=== PATIENT | female | born 1970 | race Caucasian/White ===

== ENCOUNTER → 2020-03-31 14:07 | Outpatient (BNVA) | payer MEDICAID, SELFPAY | PROVIDERS: Visit Provider Surgery | DX: E66.9 Obesity, unspecified (principal); Z68.38 Body mass index [BMI] 38.0-38.9, adult; F17.210 Nicotine dependence, cigarettes, uncomplicated; Z71.6 Tobacco abuse counseling | CPT/HCPCS: 99214 ==

== ENCOUNTER → 2020-04-23 13:15 | Outpatient (BNVA) | payer MEDICAID, SELFPAY | PROVIDERS: PCP Internal Medicine; Referring Provider Internal Medicine; Visit Provider Surgery | DX: E66.9 Obesity, unspecified (principal); Z68.38 Body mass index [BMI] 38.0-38.9, adult | CPT/HCPCS: 99212 ==

== ENCOUNTER 2020-05-18 11:36 | Outpatient (REF) | payer MEDICAID, SELFPAY ==
[2020-05-22 21:27] LABS: Cotinine, U <2 ng/mL; Nicotine, U <2 ng/mL
== END 2020-05-18 11:37 | disposition home or self-care (01) ==
LOC: HO.LAB 11:36
PROVIDERS: PCP Internal Medicine; Visit Provider Surgery
DX: Z87.891 Personal history of nicotine dependence (principal)
CPT/HCPCS: 80323

== ENCOUNTER → 2020-07-02 08:06 | Outpatient (BNVA) | payer MEDICAID, SELFPAY | PROVIDERS: PCP Internal Medicine; Visit Provider Surgery | DX: Z76.89 Persons encountering health services in other specified circumstances (principal) ==

== ENCOUNTER → 2020-10-23 09:25 | Outpatient (BNVA) | payer OTHER, SELFPAY | PROVIDERS: PCP Internal Medicine; Visit Provider Physician Assistant ==

== ENCOUNTER 2021-03-05 20:54 | Emergency (ER) | payer OTHER, SELFPAY ==
[2021-03-05 21:06] VITALS: BP 116/72; PULSE 88; RESP 16; TEMP 36.6; O2SAT 94; BMI 39.4
[2021-03-05 21:10] VITALS: BP 104/70; PULSE 90; O2SAT 96
--- NOTE | 2021-03-05 23:27 | ED.ALCOHOL ---
HPI - Alcohol General Chief Complaint: ETOH/Substance Use Stated Complaint: etoh Time Seen by Provider: 03/05/21 23:27 Source: patient Mode of arrival: EMS History of Present Illness HPI narrative: 50-year-old female arrives via EMS after she was found on the floor, and incontinent of urine. Patient states that she got home from work and began drinking which included vodka and [place] is a and states that she does not regularly drink alcohol, and denies any suicidal homicidal ideation. Patient denies any injury and was noted by EMS to be nauseous EN route. However, patient currently is not nauseous and states that she feels embarrassed but wishes to go home. She has a neighbor that is at bedside. Related Data Home Medications Medication Instructions Recorded Confirmed ascorbate calcium (vitamin C) 500 500 mg PO DAILY 03/31/20 03/31/20 mg tablet bupropion HCl 150 mg tablet,12 hr 150 mg PO DAILY 03/31/20 03/31/20 sustained-release (Wellbutrin SR) bupropion HCl 300 mg 24 hr tablet, 300 mg PO QAM 03/31/20 03/31/20 extended release (Wellbutrin XL) cholecalciferol (vitamin D3) 100 100 mcg PO DAILY 03/31/20 03/31/20 mcg (4,000 unit) capsule clonazepam 1 mg tablet (Klonopin) 3 mg PO BEDTIME tab 03/31/20 03/31/20 lansoprazole 30 mg capsule,delayed 30 mg PO DAILY 03/31/20 03/31/20 release (Prevacid) lorazepam 1 mg tablet (Ativan) 3 mg PO BEDTIME PRN tab 03/31/20 03/31/20 vitamin B complex 1 tab PO DAILY 03/31/20 03/31/20 Allergies Allergy/AdvReac Type Severity Reaction Status Date / Time No Known Allergies Allergy Unverified 03/12/20 18:20 NKA Allergy Unknown Uncoded 03/03/20 00:00 Review of Systems Review of Systems: Pertinent positives and negatives as stated in HPI 10 point review of systems is otherwise negative. PMFSH Past Medical History Source: nursing notes reviewed Medical History Acid reflux Anxiety Colon polyps Coronary artery disease Depression Hyperlipidemia Obesity Obesity Osteoarthritis of right knee Sleep apnea Urinary incontinence Surgical History H/O elbow surgery History of arthroscopic surgery of elbow History of breast augmentation History of colonoscopy History of removal of retained hardware History of right knee surgery Hx of reconstruction of anterior cruciate ligament tear Presence of neurostimulator Family History Family History Father Medical history unknown Mother Oropharyngeal cancer Brother No problems noted. Son No problems noted. Social History Social History Alcohol intake: current Advance Directives: No Advance Directives Information Provided: Yes Patient : No Physical Exam Vital Signs: Vital Signs: Last Vital Signs Temp 98 F 03/05/21 21:06 Pulse 88 03/05/21 21:06 Resp 16 03/05/21 21:06 BP 116/72 03/05/21 21:06 Pulse Ox 94 03/05/21 21:06 Body Mass Index 39.4 VITAL SIGNS: Reviewed. GENERAL: Well developed, well nourished, in no acute distress. HEAD: Normocephalic/atraumatic EYES: PERRLA, EOMI OROPHARYNX: no oral lesions noted, posterior pharynx clear LUNGS: Normal breath sounds. No adventitious sounds or accessory muscle use. SpO2<94> CARDIOVASCULAR: Regular rate and rhythm without noted murmurs ABDOMEN: Soft, non-tender, non-distended with bowel sounds. SKIN: Inspection of the skin reveals no rashes NEUROLOGIC: Alert and oriented x 4. Strength and sensation to light touch were grossly intact x 4. Patient is able to at this time walk with a steady gait and no noted slurred speech. Course Course Course Narrative: 50-year-old female with history and clinical presentation consistent with alcohol intoxication and now has a steady gait and is communicating well with staff and neighbor, who is at bedside. It was explained extensively to the patient is alert fever that she will be discharged as long as there is someone who will stay with her overnight. There is agreement and patient will be discharged home in stable condition. Discharge Plan Discharge Clinical Impression: Alcoholic intoxication Patient Disposition: Home, Self-Care Instructions: Alcohol Intoxication (ED) Additional Instructions: Please exercise caution with alcohol consumption. Return to the ER for acute worsening of any symptoms and follow-up with your primary care provider. Prescriptions: No Action bupropion HCl [Wellbutrin SR] 150 mg tablet sustained-release 12 hr 150 mg PO DAILY RF: 0 bupropion HCl [Wellbutrin XL] 300 mg tablet extended release 24 hr 300 mg PO QAM RF: 0 clonazepam [Klonopin] 1 mg tablet 3 mg PO BEDTIME RF: 0 lorazepam [Ativan] 1 mg tablet 3 mg PO BEDTIME PRNRF: 0 vitamin B complex Tablet 1 tab PO DAILY RF: 0 cholecalciferol (vitamin D3) 100 mcg (4,000 unit) capsule 100 mcg PO DAILY RF: 0 ascorbate calcium (vitamin C) 500 mg tablet 500 mg PO DAILY RF: 0 lansoprazole [Prevacid] 30 mg capsule,delayed release(DR/EC) 30 mg PO DAILY RF: 0 Referrals: Physician,Unknown [Primary Care Provider] - 2 days
== END 2021-03-06 00:17 | disposition home or self-care (01) ==
PROVIDERS: Emergency Provider Student in an Organized Health Care Education/Training Program
DX: F10.129 Alcohol abuse with intoxication, unspecified (principal); R32 Unspecified urinary incontinence; Y90.9 Presence of alcohol in blood, level not specified; Z79.899 Other long term (current) drug therapy
CPT/HCPCS: 99283

== ENCOUNTER 2022-01-14 17:38 | Emergency (ER) | payer OTHER, SELFPAY ==
--- NOTE | ~2022-01-14 | XR_ITS ---
EXAMINATION: XR KNEE, RIGHT CLINICAL INFORMATION: Knee pain COMPARISON: None TECHNIQUE: Four views of the right knee. FINDINGS: Orthopedic hardware is present in the anterolateral lateral femoral condyle along with in the distal femur and tibia. Mild degenerative changes are present in all 3 compartments. No joint effusion or fracture is seen. XR/XR knee RT 3V IMPRESSION: Postoperative changes right knee along with mild tricompartmental degenerative changes. No acute finding.
--- NOTE | ~2022-01-14 | US_ITS ---
EXAMINATION: US VENOUS ULTRASOUND WITH DOPPLER LOWER EXTREMITY, RIGHT CLINICAL INFORMATION: Right lower extremity pain and swelling COMPARISON: None TECHNIQUE: Ultrasound of the deep veins is performed from the hip to the calf with compression sonography and color and pulse Doppler assessment. Spectral analysis with color-flow imaging is performed. FINDINGS: There is normal venous compression and respiratory variation and augmented flow. The visualized common femoral vein, superficial femoral vein, profunda femoral vein, popliteal vein, and the trifurcation region shows no evidence of deep venous thrombosis. There is no significant popliteal fossa cyst. If the patient's symptoms persist, followup ultrasound in 5 days 7 days might be of value to exclude proximal propagation from a non-visualized calf vein. US/US venous duplex LE RT IMPRESSION: No DVT demonstrated in the right lower extremity.
[2022-01-14 17:46] VITALS: BP 124/75; PULSE 90; RESP 18; TEMP 37.2; O2SAT 98; BMI 41.9
[2022-01-14 18:40] LABS: MANUAL DIFF FLAG NO
[2022-01-14 18:43] LABS: Basophils Percent Auto 0.4 % (0-2); Eosinophils Absolute Auto 0.3 X10*3/uL (0.0-0.4); Eosinophils Percent Auto 2.9 % (0-4); Hemoglobin 12.5 g/dl (12.0-16.0); Imm Gran Abs Auto 0.02 X10*3/uL (0.00-0.03); Imm Gran Pct Auto 0.2 % (0.0-0.4); Lymphocytes Absolute Auto 2.6 X10*3/uL (1.2-4.9); Lymphocytes Percent Auto 27.8 % (20-40); Mean Corpuscular HGB Conc 32.9 g/dl (31.0-35.0); Mean Corpuscular Hemoglobin 29.8 pg (27.0-33.0); Mean Corpuscular Volume 90.7 fL (80.0-98.0); Mean Platelet Volume 9.7 fL (9.4-12.3); Monocytes Absolute Auto 0.9 X10*3/uL (0.1-1.2); Monocytes Percent Auto 9.6 % (2-11); Neutrophils Absolute Auto 5.4 x10*3/uL (2.0-8.3); Neutrophils Percent Auto 59.1 % (45-73); Platelet Count 247 X10*3/uL (160-400); Red Blood Count 4.19 X10*6/uL (4.20-5.50); Red Cell Distribution Width 13.9 % (11.0-16.0); White Blood Count 9.2 X10*3/uL (4.8-10.8)
[2022-01-14 18:59] LABS: Alanine Aminotransferase 30 U/L (0-31); Alkaline Phosphatase 71 U/L (39-117); Anion Gap 11 (12-20); Aspartate Amino Transferase 19 U/L (5-31); Bilirubin Total 0.2 mg/dL (0.0-1.0); Blood Urea Nitrogen 19 mg/dL (9-16); Calcium 8.7 mg/dL (8.4-10.2); Carbon Dioxide 25 mmol/L (22-29); Chloride 106 mmol/L (96-108); Creatinine Clr Calc Pharmacy 81.3; Estimated Glomerular Filt Rate 54; Glucose Random 93 mg/dL (60-115); Potassium 4.5 mmol/L (3.3-5.1); Sodium 137 mmol/L (135-145); Total Protein 6.9 g/dL (6.5-8.0)
--- NOTE | 2022-01-14 20:49 | ED.EXTPRO ---
HPI - Extremity Problem General Chief complaint: Extremity Problem Stated complaint: possible Knee infection per Dr order Time Seen by Provider: 01/14/22 19:00 History of Present Illness HPI Narrative: Patient complains of right knee pain for several days, she does have a history of several surgeries to this knee in the past for sports injuries, denies any fever denies any recent injury Related Data Home Medications Medication Instructions Recorded Confirmed ascorbate calcium (vitamin C) 500 500 mg PO DAILY 03/31/20 03/31/20 mg tablet bupropion HCl 150 mg tablet,12 hr 150 mg PO DAILY 03/31/20 03/31/20 sustained-release (Wellbutrin SR) bupropion HCl 300 mg 24 hr tablet, 300 mg PO QAM 03/31/20 03/31/20 extended release (Wellbutrin XL) cholecalciferol (vitamin D3) 100 100 mcg PO DAILY 03/31/20 03/31/20 mcg (4,000 unit) capsule clonazepam 1 mg tablet (Klonopin) 3 mg PO BEDTIME 03/31/20 03/31/20 lansoprazole 30 mg capsule,delayed 30 mg PO DAILY 03/31/20 03/31/20 release (Prevacid) lorazepam 1 mg tablet (Ativan) 3 mg PO BEDTIME PRN 03/31/20 03/31/20 vitamin B complex 1 tab PO DAILY 03/31/20 03/31/20 Previous Rx's Medication Instructions Recorded oxycodone 5 mg tablet 5 mg PO Q6H PRN pain #10 tabs 01/14/22 Allergies Allergy/AdvReac Type Severity Reaction Status Date / Time No Known Allergies Allergy Unverified 03/12/20 18:20 NKA Allergy Unknown Uncoded 03/03/20 00:00 Review of Systems Review of Systems: Positive for right knee pain and swelling Negatives are no fever no chills no dizziness no headache no neck pain no back pain no chest pain no shortness of breath denies redness, no numbness weakness or tingling Yes all other systems are reviewed and are negative PMFSH Past Medical History Source: nursing notes reviewed Medical History Acid reflux Anxiety Colon polyps Coronary artery disease Depression Hyperlipidemia Obesity Obesity Osteoarthritis of right knee Sleep apnea Urinary incontinence Surgical History H/O elbow surgery History of arthroscopic surgery of elbow History of breast augmentation History of colonoscopy History of removal of retained hardware History of right knee surgery Hx of reconstruction of anterior cruciate ligament tear Presence of neurostimulator Family History Family History Father Medical history unknown Mother Oropharyngeal cancer Brother No problems noted. Son No problems noted. Social History Social History Alcohol intake: current Physical Exam Vital Signs: Vital Signs: Last Vital Signs Temp 98.9 F 01/14/22 17:46 Pulse 90 01/14/22 17:46 Resp 18 01/14/22 17:46 BP 124/75 01/14/22 17:46 Pulse Ox 98 01/14/22 17:46 O2 Del Method 01/14/22 17:46 BMI result Body Mass Index 41.9 General appearance no acute distress Head is normocephalic atraumatic Neck is supple Respiratory no distress Chest clear to auscultation bilateral The extremities the right knee is normal color, there is swelling of the knee, it does extend to 180 and flex to around 90 there is no obvious effusion it is not red and warm, no wounds no rash and neurovascular intact distal Other extremities normal Course Course Course Narrative: Ultrasound did not show any blood clot or DVT in the right lower leg, no acute abnormality Right knee x-ray showed postoperative changes and degenerative changes consistent with osteoarthritis Patient is discharged to follow with orthopedist MDM - Extremity (Nontraumatic) Lab Data Result diagrams: 01/14/22 18:27 01/14/22 18:27 Labs: Lab Results 01/14/22 01/14/22 Range/Units 18:27 18:27 WBC 9.2 (4.8-10.8) X10*3/uL RBC 4.19 L (4.20-5.50) X10*6/uL Hgb 12.5 (12.0-16.0) g/dl Hct 38.0 (37.0-47.0) % MCV 90.7 (80.0-98.0) fL MCH 29.8 (27.0-33.0) pg MCHC 32.9 (31.0-35.0) g/dl RDW 13.9 (11.0-16.0) % Plt Count 247 (160-400) X10*3/uL MPV 9.7 (9.4-12.3) fL Immature Gran % (Auto) 0.2 (0.0-0.4) % Neut % (Auto) 59.1 (45-73) % Lymph % (Auto) 27.8 (20-40) % [place] % (Auto) 9.6 (2-11) % Eos % (Auto) 2.9 (0-4) % Baso % (Auto) 0.4 (0-2) % Lymph # (Auto) 2.6 (1.2-4.9) X10*3/uL [place] # (Auto) 0.9 (0.1-1.2) X10*3/uL Eos # (Auto) 0.3 (0.0-0.4) X10*3/uL Baso # (Auto) 0.0 (0.0-0.2) X10*3/uL Abs Immat Gran (auto) 0.02 (0.00-0.03) X10*3/uL Absolute Neuts (auto) 5.4 (2.0-8.3) x10*3/uL Absolute Nucleated RBC 0.000 (0.0-0.012) X10*3/uL Nucleated RBC % (auto) 0.0 (0.0-0.2) /100WBC Sodium 137 (135-145) mmol/L Potassium 4.5 (3.3-5.1) mmol/L Chloride 106 (96-108) mmol/L Carbon Dioxide 25 (22-29) mmol/L Anion Gap 11 L (12-20) BUN 19 H (9-16) mg/dL Creatinine 1.08 (0.5-1.4) mg/dL Estim Creat Clear Calc 81.3 Estimated GFR 54 Random Glucose 93 (60-115) mg/dL Calcium 8.7 (8.4-10.2) mg/dL Total Bilirubin 0.2 (0.0-1.0) mg/dL AST 19 (5-31) U/L ALT 30 (0-31) U/L Alkaline Phosphatase 71 (39-117) U/L Total Protein 6.9 (6.5-8.0) g/dL Albumin 4.0 (3.5-5.0) g/dL Discharge Plan Discharge Clinical Impression: Arthralgia of knee, right Patient Disposition: Home, Self-Care Additional Instructions: X-ray did show arthritis and postsurgical changes in your right knee Ultrasound did not show any blood clot There is no sign of any infection or any dangerous condition now, although it is painful Follow with orthopedist as they may decide to do a steroid injection or other treatment Return any time if worse You can use Naprosyn and Tylenol which you have at home and if not sufficient you could use the oxycodone narcotic Prescriptions: New oxycodone 5 mg tablet 5 mg PO Q6H PRN (Reason: pain) Qty: 10 0RF Rx Instructions: Partial Fill upon patient request. Narcotic, no driving for 6 hours after taking this medication No Action bupropion HCl [Wellbutrin SR] 150 mg tablet sustained-release 12 hr 150 mg PO DAILY bupropion HCl [Wellbutrin XL] 300 mg tablet extended release 24 hr 300 mg PO QAM clonazepam [Klonopin] 1 mg tablet 3 mg PO BEDTIME Rx Instructions: administer 30 minutes before bedtime lorazepam [Ativan] 1 mg tablet 3 mg PO BEDTIME PRN vitamin B complex Tablet 1 tab PO DAILY cholecalciferol (vitamin D3) 100 mcg (4,000 unit) capsule 100 mcg PO DAILY ascorbate calcium (vitamin C) 500 mg tablet 500 mg PO DAILY lansoprazole [Prevacid] 30 mg capsule,delayed release(DR/EC) 30 mg PO DAILY Referrals: Matthew Freitas MD [Physician] - (Right knee pain/arthritis) Interventions: ED Discharge Assessment Last Done: 01/14/22 22:37 Discharge Date/Time: 01/14/22 22:38
== END 2022-01-14 22:38 | disposition home or self-care (01) ==
PROVIDERS: Emergency Provider Internal Medicine; PCP Internal Medicine
DX: M17.11 Unilateral primary osteoarthritis, right knee (principal); M25.561 Pain in right knee; E78.5 Hyperlipidemia, unspecified; E66.9 Obesity, unspecified; Z68.41 Body mass index [BMI] 40.0-44.9, adult
CPT/HCPCS: 36415; 73562; 80053; 85025; 93971; 99282; 99284

== ENCOUNTER 2022-02-17 08:39 | Outpatient (REF) | payer OTHER, SELFPAY ==
--- NOTE | ~2022-02-17 | XR_ITS ---
EXAMINATION: XR KNEES, STANDING AP XR KNEE, RIGHT CLINICAL INFORMATION: Knee pain COMPARISON: Radiographs right knee 01/14/2022. TECHNIQUE: Standing AP view both knees is performed along with lateral and axial patella views of the right knee. FINDINGS: Right: There are postsurgical changes with probable tibial tunnel and hardware overlying the distal lateral femoral metaphysis. Hardware is intact. There is no destructive process or osteolysis. No periostitis. Normal bony mineralization. There is prominent narrowing medial knee joint compartment with small marginal osteophytes. No erosive change or visible chondrocalcinosis. No suprapatellar effusion. Mild degenerative changes patellofemoral joint. No lateralization or tilting patella. Left: No focal joint narrowing or erosive change or chondrocalcinosis. No destructive process. XR/XR knee RT 2V IMPRESSION: Right: -Postsurgical changes. No destructive process or osteolysis. -Prominent narrowing medial knee joint compartment. No erosive change or chondrocalcinosis. No effusion. Left: -Unremarkable.
--- NOTE | ~2022-02-17 | XR_ITS ---
EXAMINATION: XR KNEES, STANDING AP XR KNEE, RIGHT CLINICAL INFORMATION: Knee pain COMPARISON: Radiographs right knee 01/14/2022. TECHNIQUE: Standing AP view both knees is performed along with lateral and axial patella views of the right knee. FINDINGS: Right: There are postsurgical changes with probable tibial tunnel and hardware overlying the distal lateral femoral metaphysis. Hardware is intact. There is no destructive process or osteolysis. No periostitis. Normal bony mineralization. There is prominent narrowing medial knee joint compartment with small marginal osteophytes. No erosive change or visible chondrocalcinosis. No suprapatellar effusion. Mild degenerative changes patellofemoral joint. No lateralization or tilting patella. Left: No focal joint narrowing or erosive change or chondrocalcinosis. No destructive process. XR/XR knee standing BI IMPRESSION: Right: -Postsurgical changes. No destructive process or osteolysis. -Prominent narrowing medial knee joint compartment. No erosive change or chondrocalcinosis. No effusion. Left: -Unremarkable.
== END 2022-02-17 08:40 | disposition home or self-care (01) ==
LOC: HO.HOSX 08:39
PROVIDERS: Visit Provider Orthopaedic Surgery
DX: M25.561 Pain in right knee (principal)
CPT/HCPCS: 73560; 73565

== ENCOUNTER 2023-03-16 08:30 | Outpatient (AMB) | payer OTHER, SELFPAY ==
--- NOTE | 2023-03-16 08:33 | A.OFFVIS_ITS ---
Intake Intake Visit Reasons: New Prob - Right Elbow Pain Intake Note: Swathi is a 52 year old right hand dominant female who presents today for a new problem visit with complaints of right elbow pain. Hx of surgery on elbow in about 2003. Patient reports that she has had pain in the right elbow with lifting and grasping motions. Denies numbness and tingling. Allergies No Known Allergies Allergy (Verified 02/17/22 10:03) NKA Allergy (Unknown, Uncoded 02/17/22 09:58) Unknown HPI New Prob - Right Elbow Pain HPI Details Swathi is a 52 year old woman who presents with complaints of right elbow pain, with a hx of elbow surgery in ~2003. She has pain primarily with lifting and grasping activities, localized to the lateral aspect of her elbow. She also has known right knee OA with a hx of multiple surgeries all performed in [facility]: 2X ACL repair (2001 & 2004), 1 Meniscus repair, and rem oval of Ortho hardware. She has tried multiple injections at [facility], without relief, and has not done any PT. She was last seen and given a medial unloading brace to wear with activity and she was focused on increasing her activity and weight management. [facility] Medical History Obesity Obesity Colon polyps Urinary incontinence Coronary artery disease Hyperlipidemia Osteoarthritis of right knee Sleep apnea Acid reflux Anxiety Depression Surgical History (Updated 03/16/23 @ 08:35 by Adrianna Victor CMA) H/O gastric sleeve H/O elbow surgery History of colonoscopy Presence of neurostimulator History of breast augmentation History of arthroscopic surgery of elbow History of removal of retained hardware History of right knee surgery Hx of reconstruction of anterior cruciate ligament tear Family History Father Medical history unknown Mother Oropharyngeal cancer Brother No problems noted. Son No problems noted. 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 - [employer] Review of Systems Const All systems reviewed & are unremarkable except as noted in HPI and below Physical Exam Const General: no acute distress, alert and awake Orientation/consciousness: patient oriented x3 HEENT Head: Yes normocephalic and Yes atraumatic Eyes EOM: EOMs intact bilaterally Resp Effort & Inspection: normal respiratory effort and able to speak in complete sentences Cardio Jugular venous distension: no JVD Skin General skin exam: turgor normal Rashes: no rashes Neuro General: patient oriented x3 Extrem Other: Right Elbow: Tenderness to palpation over the lateral epicondyle. Mild pain with resisted extension of the wrist. Full range of motion. Psych Appearance: grossly normal Affect: normal affect Attitude: cooperative Assessment & Plan Assessment & Plan (1) Right lateral epicondylitis: Code(s): M77.11 - Lateral epicondylitis, right elbow Plan: Right lateral epicondylitis. Discussed treatment options. At this point I recommend counterforce brace and activity modification. She will contact me if pain worsens. Coding Level of Care Code Est Pt Level 3 (42149) Diagnoses Right lateral epicondylitis M77.11
== END 2023-03-16 08:51 | disposition home or self-care (01) ==
PROVIDERS: PCP Internal Medicine; Visit Provider Orthopaedic Surgery
DX: M77.11 Lateral epicondylitis, right elbow (principal)
CPT/HCPCS: 99213

== ENCOUNTER → 2023-03-16 08:30 | Outpatient (BNVA) | payer OTHER, SELFPAY | PROVIDERS: PCP Internal Medicine; Visit Provider Orthopaedic Surgery ==

== ENCOUNTER 2023-07-20 22:02 | Emergency (ER) | payer OTHER, SELFPAY ==
--- NOTE | 2023-07-20 | ECG_ITS ---
Test Reason : OVERDOSE Blood Pressure : / mmHG Vent. Rate : 089 BPM Atrial Rate : 089 BPM P-R Int : 140 ms QRS Dur : 092 ms QT Int : 384 ms P-R-T Axes : 051 049 014 degrees QTc Int : 467 ms Normal sinus rhythm Normal ECG When compared with ECG of 25-FEB-2020 12:13, No significant change was found Referred By: Thalia Love Electronically Signed By:Jose Ojeda
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
[2023-07-20 22:19] VITALS: BP 109/67; PULSE 88; RESP 18; TEMP 36.5; O2SAT 94; BMI 33.4
[2023-07-20 22:47] LABS: MANUAL DIFF FLAG NO
[2023-07-20 22:48] LABS: Basophils Absolute Auto 0.1 X10*3/uL (0.0-0.2); Basophils Percent Auto 0.8 % (0-2); Eosinophils Absolute Auto 0.3 X10*3/uL (0.0-0.4); Eosinophils Percent Auto 4.3 % (0-4); Hematocrit 37.5 % (37.0-47.0); Hemoglobin 13.2 g/dl (12.0-16.0); Imm Gran Abs Auto 0.01 X10*3/uL (0.00-0.03); Imm Gran Pct Auto 0.1 % (0.0-0.4); Lymphocytes Absolute Auto 3.7 X10*3/uL (1.2-4.9); Lymphocytes Percent Auto 50.7 % (20-40); Mean Corpuscular HGB Conc 35.2 g/dl (31.0-35.0); Mean Corpuscular Hemoglobin 31.9 pg (27.0-33.0); Mean Corpuscular Volume 90.6 fL (80.0-98.0); Mean Platelet Volume 9.2 fL (9.4-12.3); Monocytes Absolute Auto 0.6 X10*3/uL (0.1-1.2); Monocytes Percent Auto 7.9 % (2-11); Neutrophils Absolute Auto 2.7 x10*3/uL (2.0-8.3); Neutrophils Percent Auto 36.2 % (45-73); Platelet Count 225 X10*3/uL (160-400); Red Blood Count 4.14 X10*6/uL (4.20-5.50); Red Cell Distribution Width 12.4 % (11.0-16.0); White Blood Count 7.4 X10*3/uL (4.8-10.8)
[2023-07-20 22:52] LABS: INTERNATIONAL NORM RATIO 0.9 (0.9-1.1); Prothrombin Time 11.3 SEC (11.1-13.3)
[2023-07-20 22:58] LABS: Ethanol 275 mg/dL
[2023-07-20 23:01] LABS: Alanine Aminotransferase 19 U/L (0-31); Albumin Level 3.9 g/dL (3.5-5.0); Alkaline Phosphatase 67 U/L (39-117); Anion Gap 13 (12-20); Aspartate Amino Transferase 18 U/L (5-31); Bilirubin Direct 0.1 mg/dL (0.0-0.5); Bilirubin Total 0.3 mg/dL (0.0-1.0); Blood Urea Nitrogen 10 mg/dL (9-16); Calcium 8.5 mg/dL (8.4-10.2); Carbon Dioxide 24 mmol/L (22-29); Chloride 101 mmol/L (96-108); Creatinine Clr Calc Pharmacy 93.6; Estimated Glomerular Filt Rate > 60; Glucose Random 93 mg/dL (60-115); Magnesium 1.9 mg/dL (1.6-2.6); Potassium 3.6 mmol/L (3.3-5.1); Sodium 134 mmol/L (135-145)
[2023-07-20 23:08] LABS: Troponin-I High Sensitivity < 2.7 ng/L (<3.5-17.0)
[2023-07-20 23:10] LABS: Appearance Urine Clear; Color Urine Yellow; Glucose Urine UA Negative (Negative); Leukocyte Esterase Urine Negative (Negative); Nitrite Urine Negative (Negative); Specific Gravity - Urine <= 1.005 (1.005-1.025); Urine Blood Negative (Negative); Urine Ketones Negative (Negative); Urine Protein Negative (Neg-Trace)
[2023-07-20 23:22] LABS: Fentanyl, urine Not Detected (Not Detect)
[2023-07-20 23:23] LABS: Amphetamine Screen Urine Not Detected (Not Detect); Barbiturates, Urine Not Detected (Not Detect); Benzodiazepines Screen Urine Not Detected (Not Detect); Cannabinoid Screen Urine POSITIVE (Not Detect); Cocaine Screen Urine Not Detected (Not Detect); Opiate Screen Urine Not Detected (Not Detect); Phencyclidine Screen Urine Not Detected (Not Detect)
--- NOTE | 2023-07-20 23:25 | PC.NURSE ---
Called Poison Control who recommends Tylenol, salicylate level and supportive care until she is more awake. Dr. Love made aware.
[2023-07-21 00:33] LABS: Acetaminophen LAB < 3 mcg/mL (<30); Salicylate < 5.0 mg/dL (15-30)
--- NOTE | 2023-07-21 01:24 | PC.NURSE ---
Update given to Poison control at this time. No further recommendations.
--- NOTE | 2023-07-21 02:42 | PC.NURSE ---
Pt resting quietly at this time. Respirations even and unlabored. 1:[address]
[2023-07-21 04:00] VITALS: PULSE 75; RESP 16; O2SAT 94
--- NOTE | 2023-07-21 07:20 | PC.NURSE ---
Addendum entered by Aminah Ritchie 07/21/23 07:22: patient belongings in decon, phone with community health advisor Original Note: alert and oriented, respirations even and unlabored. patient awake, questioning how she got here. states she remembers having a bad day at work, going home and drinking/taking prescription pills. denies si/hi, states she has never done anything like this. patient observer remains in place, awaiting care team consult.
--- NOTE | 2023-07-21 09:20 | PC.NURSE ---
meeting with care team
[2023-07-21 09:26] VITALS: BP 97/70; PULSE 82; RESP 14; TEMP 36.6; O2SAT 100
== END 2023-07-21 09:43 | disposition home or self-care (01) ==
PROVIDERS: Emergency Provider Emergency Medicine
DX: F33.1 Major depressive disorder, recurrent, moderate (principal); T42.4X1A Poisoning by benzodiazepines, accidental (unintentional), initial encounter; Y92.9 Unspecified place or not applicable; F10.129 Alcohol abuse with intoxication, unspecified; Y90.7 Blood alcohol level of 200-239 mg/100 ml; Z79.899 Other long term (current) drug therapy
CPT/HCPCS: 36415; 80048; 80076; 80143; 80179; 80307; 81003; 83735; 84484; 85025; 85610; 93005; 99285; S9485

== ENCOUNTER → 2023-07-20 22:31 | Outpatient (BNV) | payer OTHER, SELFPAY | PROVIDERS: Emergency Provider Emergency Medicine; Visit Provider Internal Medicine Cardiovascular Disease | DX: T50.911A Poisoning by multiple unspecified drugs, medicaments and biological substances, accidental (unintentional), initial encounter (principal) | CPT/HCPCS: 93010 ==

== ENCOUNTER 2023-09-06 15:10 | Emergency (ER) | payer OTHER, SELFPAY ==
--- NOTE | ~2023-09-06 | CT_ITS ---
EXAMINATION: CT head/brain wo IV con CLINICAL INFORMATION: Reason for Exam dizziness COMPARISON: None. TECHNIQUE: Contiguous axial imaging was performed from the skull base to vertex without intravenous contrast. Sagittal and coronal reformatted images were obtained. This CT examination was performed using dose optimization techniques as appropriate, variously including the following: * Automated exposure control * Adjustment of mA and/or kV according to patient size (this includes techniques or standardized protocols for targeted exams where dose is matched to indication/reason for exam; i.e. extremities or head) Use of iterative reconstruction technique DLP: 637 mGy-cm FINDINGS: No acute osseous or soft tissue abnormality. The mastoid air cells and visualized portions of the paranasal sinuses are well aerated. There is no evidence of acute intracranial hemorrhage or territorial infarction. No abnormal mass effect or midline shift is seen. Nagy to white matter differentiation is well preserved. No extra-axial fluid collections are identified. No hydrocephalus. No significant volume loss. There is no abnormal attenuation within the brain parenchyma. CT/CT head/brain wo IV con IMPRESSION: No acute intracranial abnormality including hemorrhage, mass effect, hydrocephalus, or acute territorial edematous infarction.
[2023-09-06 15:35] VITALS: BP 156/85; PULSE 73; RESP 18; TEMP 36.9; O2SAT 99; BMI 32.4
--- NOTE | 2023-09-06 15:48 | ED.GENADULT ---
HPI - General Adult General Chief complaint: General Medical Stated complaint: referred from telehealth possible stroke? Time Seen by Provider: 09/06/23 21:12 Source: patient Mode of arrival: ambulatory Limitations: no limitations History of Present Illness HPI narrative: Patient 52 years old with history of depression chronic insomnia on Ativan 6 mg daily and Wellbutrin getting only 3-4 hours sleep and night increased stress last 2 days patient noticed that while reading on the computer not able to grasp feel foggy in her mind no aortic collection defect no comprehension defect no focal weakness patient was triaged at 15:[address] scan done at that time which is negative no weakness no headache no dysarthria Related Data Home Medications Medication Instructions Recorded Confirmed bupropion HCl 150 mg tablet,12 hr 150 mg PO DAILY 03/31/20 03/31/20 sustained-release (Wellbutrin SR) bupropion HCl 300 mg 24 hr tablet, 300 mg PO QAM 03/31/20 03/31/20 extended release (Wellbutrin XL) lansoprazole 30 mg capsule,delayed 30 mg PO DAILY 03/31/20 03/31/20 release (Prevacid) lorazepam 1 mg tablet (Ativan) 3 mg PO BEDTIME PRN 03/31/20 03/31/20 vitamin B complex 1 tab PO DAILY 03/31/20 03/31/20 hydroxyzine HCl 50 mg tablet 50 mg PO BID 02/17/22 tizanidine 4 mg tablet 4 mg PO TID 02/17/22 Previous Rx's Medication Instructions Recorded trazodone 50 mg tablet 50 mg PO BEDTIME PRN insomnia #10 09/06/23 tabs Allergies Allergy/AdvReac Type Severity Reaction Status Date / Time No Known Allergies Allergy Verified 07/20/23 22:18 NKA Allergy Unknown Unknown Uncoded 07/20/23 22:18 Review of Systems Review of Systems: Yes all other systems are reviewed and are negative PMFSH Past Medical History Medical History Obesity Obesity Colon polyps Urinary incontinence Coronary artery disease Hyperlipidemia Osteoarthritis of right knee Sleep apnea Acid reflux Anxiety Depression Surgical History H/O gastric sleeve H/O elbow surgery History of colonoscopy Presence of neurostimulator History of breast augmentation History of arthroscopic surgery of elbow History of removal of retained hardware History of right knee surgery Hx of reconstruction of anterior cruciate ligament tear Family History Family History Father Medical history unknown Mother Oropharyngeal cancer Brother No problems noted. Son No problems noted. Social History Social History Alcohol intake: current Advance Directives: Yes Advance Directives Information Provided: No Advance Directives on File: No Current occupational status: employed Current occupation: [employer] Physical Exam ED Vital Signs: Vital Signs - 24 hr 09/06/23 15:35 09/06/23 19:54 Temperature 98.5 F 97.6 F Pulse Rate 73 73 Respiratory Rate 18 18 Blood Pressure 156/85 H 114/80 Pulse Oximetry 99 99 Oxygen Delivery Method Room Air Room Air BMI result Body Mass Index 32.4 Appearance: Alert. Oriented X3. No acute distress. Eyes: PERRLA, No Nystagmus ENT: Pharynx normal. Oral Mucosa moist Neck: Normal inspection. Neck supple. CVS: Normal heart rate and rhythm. Pulses normal. Respiratory: No respiratory distress. Equal air entry bilateral, no wheezing/rales/rhonchi Abdomen: Soft and nontender. Bowel sounds are present, no mass palpable, no CVA tenderness Skin: Skin warm and dry. Normal skin color. Normal skin turgor. Extremities: No lower extremity edema. No calf tenderness Neuro: Oriented X 3. No motor deficit. No sensory deficit.No cerebellar signs , cranial nerves II-XII intact normal speech and articulation NIH Stroke Scale Time: 21:40 Level of Consciousness: Alert Level of Consciousness Questions: Answers both questions correctly Level of Consciousness Commands: Performs both tasks correctly Best Gaze: Normal Visual: No visual loss Facial Palsy: Normal Motor Arm (Right): No drift Motor Arm (Left): No drift Motor Leg (Right): No drift Motor Leg (Left): No drift Limb Ataxia: Absent Sensory: Normal Best Language: No aphasia Dysarthia: Normal Extinction and Inattention: No abnormality Score: 0 Course Course Course Narrative: Patient complains of feeling mildly confused, she had 1 episode of dizziness where she felt she might faint, she denies any chest pain or shortness of breath, denies any weakness of any limbs She recently had a change to her psych meds In the ER she is neurologically intact and responding appropriately to all questions with good balance she is A&O x3 Labs and EKG sent Medical Decision Making Medical Decision Making [facility] Narrative: Patient with chronic insomnia unable to sleep spinal taking multiple medication started on Abilify last week along with taking Wellbutrin Differential Diagnosis Differential Diagnoses: The differential diagnosis associated with the presentation includes CVA/TIA/chronic insomnia Lab Data [facility] Lab Attestation statement: I reviewed the patient's lab results. 09/06/23 16:06 09/06/23 16:06 Labs: Lab Results 09/06/23 09/06/23 Range/Units 16:06 16:08 WBC 7.3 (4.8-10.8) X10*3/uL RBC 4.27 (4.20-5.50) X10*6/uL Hgb 13.4 (12.0-16.0) g/dl Hct 38.9 (37.0-47.0) % MCV 91.1 (80.0-98.0) fL MCH 31.4 (27.0-33.0) pg MCHC 34.4 (31.0-35.0) g/dl RDW 13.0 (11.0-16.0) % Plt Count 236 (160-400) X10*3/uL MPV 9.9 (9.4-12.3) fL Immature Gran % (Auto) 0.1 (0.0-0.4) % Neut % (Auto) 54.8 (45-73) % Lymph % (Auto) 32.1 (20-40) % Jenkins % (Auto) 9.6 (2-11) % Eos % (Auto) 2.9 (0-4) % Baso % (Auto) 0.5 (0-2) % Lymph # (Auto) 2.3 (1.2-4.9) X10*3/uL Jenkins # (Auto) 0.7 (0.1-1.2) X10*3/uL Eos # (Auto) 0.2 (0.0-0.4) X10*3/uL Baso # (Auto) 0.0 (0.0-0.2) X10*3/uL Abs Immat Gran (auto) 0.01 (0.00-0.03) X10*3/uL Absolute Neuts (auto) 4.0 (2.0-8.3) x10*3/uL Absolute Nucleated RBC 0.000 (0.0-0.012) X10*3/uL Nucleated RBC % (auto) 0.0 (0.0-0.2) /100WBC Sodium 138 (135-145) mmol/L Potassium 3.9 (3.3-5.1) mmol/L Chloride 104 (96-108) mmol/L Carbon Dioxide 25 (22-29) mmol/L Anion Gap 13 (12-20) BUN 12 (9-16) mg/dL Creatinine 0.78 (0.5-1.4) mg/dL Estim Creat Clear Calc 97.0 Estimated GFR > 60 Random Glucose 88 (60-115) mg/dL Calcium 9.3 D (8.4-10.2) mg/dL Total Bilirubin 0.5 (0.0-1.0) mg/dL Direct Bilirubin 0.2 (0.0-0.5) mg/dL AST 18 (5-31) U/L ALT 17 (0-31) U/L Alkaline Phosphatase 65 (39-117) U/L Troponin I High Sens < 2.7 (<3.5-17.0) ng/L Total Protein 7.5 (6.5-8.0) g/dL Albumin 4.1 (3.5-5.0) g/dL Urine Color Yellow Urine Appearance Clear Urine pH 5.5 (5.0-9.0) Ur Specific [place] 1.015 (1.005-1.025) Urine Protein Negative (Neg-Trace) mg/dL Urine Glucose (UA) Negative (Negative) mg/dL Urine Ketones 15 (Negative) mg/dL Urine Blood Negative (Negative) Urine Nitrite Negative (Negative) Ur Leukocyte Esterase Trace H (Negative) Urine RBC 0-2 (0-2) /HPF Urine WBC 0-5 (0-5) /HPF Ur Squamous Epith Cells 3-5 (0-2) /HPF Urine Bacteria Trace (None Seen) Hyaline Casts 0-2 (0-2) /LPF Urine Test NEGATIVE (NEGATIVE) Independent Interpretation I performed an independent interpretation of an: EKG and CT Scan Interpretation: Normal sinus rhythm heart rate 70 beats per minute normal interval normal axis no acute ST T wave changes no acute ischemia Radiology Impression Discussion of test interpretation with radiology: I have reviewed the radiologist's reading. Discharge Plan Discharge Clinical Impression: Chronic insomnia Patient Disposition: Home, Self-Care Instructions: Insomnia (ED) Additional Instructions: Your psychiatrist about Wellbutrin, may need to be changed Try trazodone 50 mg daily at night to sleep Follow-up with your psychiatrist and PCP Prescriptions: New trazodone 50 mg tablet 50 mg PO BEDTIME PRN (Reason: insomnia) Qty: 10 0RF No Action bupropion HCl [Wellbutrin SR] 150 mg tablet sustained-release 12 hr 150 mg PO DAILY bupropion HCl [Wellbutrin XL] 300 mg tablet extended release 24 hr 300 mg PO QAM lorazepam [Ativan] 1 mg tablet 3 mg PO BEDTIME PRN vitamin B complex Tablet 1 tab PO DAILY lansoprazole [Prevacid] 30 mg capsule,delayed release(DR/EC) 30 mg PO DAILY tizanidine 4 mg tablet 4 mg PO TID hydroxyzine HCl 50 mg tablet 50 mg PO BID
--- NOTE | 2023-09-06 15:49 | ECG_ITS ---
Test Reason : DIZZY Blood Pressure : / mmHG Vent. Rate : 070 BPM Atrial Rate : 070 BPM P-R Int : 138 ms QRS Dur : 080 ms QT Int : 390 ms P-R-T Axes : 042 051 023 degrees QTc Int : 421 ms Normal sinus rhythm Normal ECG When compared with ECG of 20-JUL-2023 22:31, No significant change was found Referred By: Yo Garcia Electronically Signed By:MERCY MCCARTHY MD
[2023-09-06 16:12] LABS: MANUAL DIFF FLAG NO
[2023-09-06 16:16] LABS: Appearance Urine Clear; Color Urine Yellow; Glucose Urine UA Negative (Negative); Leukocyte Esterase Urine Trace (Negative); Nitrite Urine Negative (Negative); PH 5.5 (5.0-9.0); Specific Gravity - Urine 1.015 (1.005-1.025); UMIC TRIGGER UACC YES; Urine Blood Negative (Negative); Urine Ketones 15 mg/dL (Negative); Urine Protein Negative (Neg-Trace)
[2023-09-06 16:21] LABS: Basophils Percent Auto 0.5 % (0-2); Eosinophils Absolute Auto 0.2 X10*3/uL (0.0-0.4); Eosinophils Percent Auto 2.9 % (0-4); Hematocrit 38.9 % (37.0-47.0); Hemoglobin 13.4 g/dl (12.0-16.0); Imm Gran Abs Auto 0.01 X10*3/uL (0.00-0.03); Imm Gran Pct Auto 0.1 % (0.0-0.4); Lymphocytes Absolute Auto 2.3 X10*3/uL (1.2-4.9); Lymphocytes Percent Auto 32.1 % (20-40); Mean Corpuscular HGB Conc 34.4 g/dl (31.0-35.0); Mean Corpuscular Hemoglobin 31.4 pg (27.0-33.0); Mean Corpuscular Volume 91.1 fL (80.0-98.0); Mean Platelet Volume 9.9 fL (9.4-12.3); Monocytes Absolute Auto 0.7 X10*3/uL (0.1-1.2); Monocytes Percent Auto 9.6 % (2-11); Neutrophils Percent Auto 54.8 % (45-73); Platelet Count 236 X10*3/uL (160-400); Red Blood Count 4.27 X10*6/uL (4.20-5.50); White Blood Count 7.3 X10*3/uL (4.8-10.8)
[2023-09-06 16:26] LABS: Bacteria Urine Trace (None Seen); Hyaline Casts Urine 0-2 /LPF (0-2); RBC Urine 0-2 /HPF (0-2); WBC Urine 0-5 /HPF (0-5)
[2023-09-06 16:28] LABS: UPreg QC Valid YES; Urine Pregnancy NEGATIVE (NEGATIVE)
[2023-09-06 16:30] LABS: Alanine Aminotransferase 17 U/L (0-31); Albumin Level 4.1 g/dL (3.5-5.0); Alkaline Phosphatase 65 U/L (39-117); Anion Gap 13 (12-20); Aspartate Amino Transferase 18 U/L (5-31); Bilirubin Direct 0.2 mg/dL (0.0-0.5); Bilirubin Total 0.5 mg/dL (0.0-1.0); Blood Urea Nitrogen 12 mg/dL (9-16); Calcium 9.3 mg/dL (8.4-10.2); Carbon Dioxide 25 mmol/L (22-29); Chloride 104 mmol/L (96-108); Estimated Glomerular Filt Rate > 60; Glucose Random 88 mg/dL (60-115); Potassium 3.9 mmol/L (3.3-5.1); Sodium 138 mmol/L (135-145); Total Protein 7.5 g/dL (6.5-8.0)
[2023-09-06 16:35] LABS: Troponin-I High Sensitivity < 2.7 ng/L (<3.5-17.0)
[2023-09-06 19:54] VITALS: BP 114/80; PULSE 73; RESP 18; TEMP 36.4; O2SAT 99
[2023-09-06] MEDS: traZODone HCL 50 MG TABLET PO (22:01)
== END 2023-09-06 22:03 | disposition home or self-care (01) ==
PROVIDERS: Physician Assistant Medical; Emergency Provider Internal Medicine; PCP Internal Medicine
DX: F51.04 Psychophysiologic insomnia (principal); R42 Dizziness and giddiness; F43.9 Reaction to severe stress, unspecified; Z79.899 Other long term (current) drug therapy
CPT/HCPCS: 36415; 70450; 80048; 80076; 81001; 81025; 84484; 85025; 93005; 99283; 99284

== ENCOUNTER → 2023-09-06 15:49 | Outpatient (BNV) | payer OTHER, SELFPAY | PROVIDERS: Emergency Provider Internal Medicine; PCP Internal Medicine; Visit Provider Internal Medicine Cardiovascular Disease | DX: R42 Dizziness and giddiness (principal) | CPT/HCPCS: 93010 ==

== ENCOUNTER 2023-12-09 15:10 | Emergency (ER) | payer OTHER, SELFPAY ==
[2023-12-09] VITALS (18 sets, daily range): BP systolic 83–110; BP diastolic 33–80; PULSE 70–92; RESP 11–18; TEMP 36.4–36.6; O2SAT 94–100; BMI 37.3
--- NOTE | 2023-12-09 15:31 | ECG_ITS ---
Test Reason : OVER DOSE Blood Pressure : / mmHG Vent. Rate : 072 BPM Atrial Rate : 072 BPM P-R Int : 140 ms QRS Dur : 090 ms QT Int : 412 ms P-R-T Axes : 055 057 013 degrees QTc Int : 451 ms Normal sinus rhythm Normal ECG When compared with ECG of 06-SEP-2023 15:58, Nonspecific T wave abnormality no longer evident in Anterior leads Referred By: Rosemary Franco Electronically Signed By:WAYNE ESCALERA
--- NOTE | 2023-12-09 15:50 | PC.NURSE ---
pt is alert but very drowsy, respirations even and unlabored but will vary from 10-14 also easily aorusable, ls clear, pt put on capnography but not capturing at this time, pt reports drinking about half a bottle of vodka and taking 50mg of trazadone and 150mg of Seroquel around 1300 pt denies si/hi, just keeps repeating that she is not a bad person and ' I just wanted to take a nap , states having lots of life stresses. ns on the monitor pt changed over into [facility] attire and secured in the pod pt keeps saying she has too urinate, put on a bed wagner 2 times unable to void, bladder scan performed and 1311 ml
[2023-12-09 15:55] LABS: MANUAL DIFF FLAG NO
[2023-12-09 15:57] LABS: Basophils Absolute Auto 0.1 X10*3/uL (0.0-0.2); Basophils Percent Auto 0.7 % (0-2); Eosinophils Absolute Auto 0.3 X10*3/uL (0.0-0.4); Eosinophils Percent Auto 3.9 % (0-4); Hematocrit 39.1 % (37.0-47.0); Hemoglobin 13.5 g/dl (12.0-16.0); Imm Gran Abs Auto 0.02 X10*3/uL (0.00-0.03); Imm Gran Pct Auto 0.3 % (0.0-0.4); Lymphocytes Absolute Auto 2.9 X10*3/uL (1.2-4.9); Lymphocytes Percent Auto 40.5 % (20-40); Mean Corpuscular HGB Conc 34.5 g/dl (31.0-35.0); Mean Corpuscular Hemoglobin 32.1 pg (27.0-33.0); Mean Corpuscular Volume 93.1 fL (80.0-98.0); Mean Platelet Volume 9.4 fL (9.4-12.3); Monocytes Absolute Auto 0.6 X10*3/uL (0.1-1.2); Monocytes Percent Auto 8.6 % (2-11); Neutrophils Absolute Auto 3.3 x10*3/uL (2.0-8.3); Platelet Count 206 X10*3/uL (160-400); Red Cell Distribution Width 12.6 % (11.0-16.0); White Blood Count 7.2 X10*3/uL (4.8-10.8)
[2023-12-09 16:07] LABS: Ethanol 240 mg/dL
[2023-12-09 16:11] LABS: Alanine Aminotransferase 18 U/L (0-31); Albumin Level 3.9 g/dL (3.5-5.0); Alkaline Phosphatase 67 U/L (39-117); Anion Gap 10 (12-20); Aspartate Amino Transferase 17 U/L (5-31); Bilirubin Direct < 0.2 mg/dL (0.0-0.5); Bilirubin Total 0.2 mg/dL (0.0-1.0); Blood Urea Nitrogen 12 mg/dL (9-16); Calcium 8.6 mg/dL (8.4-10.2); Carbon Dioxide 27 mmol/L (22-29); Chloride 107 mmol/L (96-108); Creatinine Clr Calc Pharmacy 116.6; Estimated Glomerular Filt Rate > 60; Glucose Random 85 mg/dL (60-115); Potassium 3.7 mmol/L (3.3-5.1); Sodium 140 mmol/L (135-145); Total Protein 6.9 g/dL (6.5-8.0)
[2023-12-09 16:13] LABS: Acetaminophen LAB < 3 mcg/mL (<30); Salicylate < 5.0 mg/dL (15-30)
--- NOTE | 2023-12-09 16:22 | ED_ITS ---
HPI - General Adult General Chief complaint: Overdose Stated complaint: crisis,etoh use,unk amount meds @9am per ems Time Seen by Provider: 12/09/23 16:13 Source: patient and EMS Mode of arrival: EMS Limitations: no limitations History of Present Illness ED Provider: Dr. Thalia Love HPI narrative: Patient comes to the emergency room complaining of feeling angry and sad. Patient denies suicidal ideation. Patient states that earlier today patient drank vodka, had trazodone 50 mg and 1 tablet of Seroquel 150 with the intention of getting some rest as patient suffers from chronic insomnia. Patient states that she is very upset at her family, she just pend a large amount of money finishing her basement to have family from [place] move in with her, after a few days of staying with her, family decided to go back to [place], and states that were not grateful for things that she has done for them. Patient states that earlier today she was having a bad day, called the crisis line to have someone talk with her. However, patient states it was not for suicide ideation. Patient states that they were too many channels to go through the crisis line to talk to somebody, decided to call 911 and come to the hospital. Also, patient complaining that she needs to urinate but can not empty her bladder. Patient states that she has had this happened before, states that she has a back muscle stimulator and sometimes causes her to not able to empty her bladder. Related Data Home Medications ?Medication ?Instructions ?Recorded ?Confirmed bupropion HCl 150 mg tablet,12 hr 150 mg PO DAILY 03/31/20 03/31/20 sustained-release (Wellbutrin SR) bupropion HCl 300 mg 24 hr tablet, 300 mg PO QAM 03/31/20 03/31/20 extended release (Wellbutrin XL) lansoprazole 30 mg capsule,delayed 30 mg PO DAILY 03/31/20 03/31/20 release (Prevacid) lorazepam 1 mg tablet (Ativan) 3 mg PO BEDTIME PRN 03/31/20 03/31/20 vitamin B complex 1 tab PO DAILY 03/31/20 03/31/20 hydroxyzine HCl 50 mg tablet 50 mg PO BID 02/17/22 tizanidine 4 mg tablet 4 mg PO TID 02/17/22 Previous Rx's ?Medication ?Instructions ?Recorded trazodone 50 mg tablet 50 mg PO BEDTIME PRN insomnia #10 09/06/23 tabs Allergies Allergy/AdvReac Type Severity Reaction Status Date / Time No Known Allergies Allergy Verified 12/09/23 15:27 NKA Allergy Unknown Unknown Uncoded 07/20/23 22:18 Review of Systems 2 Review of Systems: Constitutional : No Weight loss, No Fever, No Chills, No Night Sweats, No Fatigue, No Malaise ENT/Mouth : No Hearing loss, No Ear Pain, No Nasal Congestion, No Sinus Pain, No Hoarseness, No sore throat, No Rhinorrhea, No Swallowing Difficulty Eyes: No Eye Pain, No Swelling, No Redness, No Foreign Body, No Discharge, No Vision Changes Cardiovascular : No Chest Pain, No SOB, No Dyspnea on Exertion, No Orthopnea, No Edema, No Palpitations Respiratory : No Cough, No Sputum, No Wheezing, No Smoke Exposure, No Dyspnea Gastrointestinal : No Nausea, No Vomiting, No Diarrhea, No Constipation, No abdominal Pain, No Hematochezia, No Melena Genitourinary : no irregular bleeding, No Dysuria, No Urinary Frequency, No Hematuria, No Urinary Incontinence, No Urgency, No Flank Pain, complaining of urinary retention Musculoskeletal : No joint pain, No Myalgias, No Joint Swelling Skin : No Skin Lesions, No rash Neuro : No Weakness, No Numbness, No Paresthesias, No Loss of Consciousness, No Dizziness, No Headache Psych : No Anxiety/Panic, complaining of depression, having a bad day, admits to drinking a bit of vodka trazodone and Seroquel with the intention of getting a good sleep, denies SI or HI Heme/Lymph: No Bruising, No Bleeding,No Lymphadenopathy Endocrine : No Polyuria, No Polydipsia, No Temperature Intolerance PMFSH Past Medical History Medical History Obesity Obesity Colon polyps Urinary incontinence Coronary artery disease Hyperlipidemia Osteoarthritis of right knee Sleep apnea Acid reflux Anxiety Depression Surgical History H/O gastric sleeve H/O elbow surgery History of colonoscopy Presence of neurostimulator History of breast augmentation History of arthroscopic surgery of elbow History of removal of retained hardware History of right knee surgery Hx of reconstruction of anterior cruciate ligament tear Family History Family History Father Medical history unknown Mother Oropharyngeal cancer Brother No problems noted. Son No problems noted. Social History Social History Alcohol intake: current Alcohol intake frequency: a few times a week Smoked in Last 30 Days: Yes Use of substances other than those prescribed or required for medical reasons: No Advance Directives: No Advance Directives Information Provided: Yes Do you have a plan to hurt others: No Plan Patient : No Current occupational status: employed Current occupation: [employer] Physical Exam ED Vital Signs: Vital Signs - 24 hr 12/09/23 15:22 12/09/23 15:37 12/09/23 16:34 Temperature 97.6 F Pulse Rate 76 76 76 Respiratory Rate 12 12 Blood Pressure 110/75 109/71 Pulse Oximetry 98 100 Oxygen Delivery Method Room Air Room Air Oxygen Flow Rate 12/09/23 17:48 12/09/23 18:39 12/09/23 18:46 Temperature Pulse Rate 80 81 82 Respiratory Rate 16 18 11 L Blood Pressure 102/65 97/65 83/33 L Pulse Oximetry 96 Oxygen Delivery Method Nasal Cannula Oxygen Flow Rate 1 12/09/23 19:09 12/09/23 19:29 12/09/23 19:32 Temperature 97.6 F Pulse Rate 78 83 86 Respiratory Rate 12 14 14 Blood Pressure 105/65 88/41 L 89/53 L Pulse Oximetry 98 96 96 Oxygen Delivery Method Nasal Cannula Nasal Cannula Nasal Cannula Oxygen Flow Rate 1 1 1 12/09/23 19:48 12/09/23 19:49 12/09/23 20:37 Temperature 97.7 F Pulse Rate 85 84 85 Respiratory Rate 15 15 15 Blood Pressure 99/50 L 94/55 L 92/57 L Pulse Oximetry 97 98 94 Oxygen Delivery Method Nasal Cannula Nasal Cannula Nasal Cannula Oxygen Flow Rate 1 1 1 12/09/23 21:07 12/09/23 21:36 12/09/23 22:06 Temperature Pulse Rate 84 85 82 Respiratory Rate 15 16 16 Blood Pressure 109/64 99/49 L 103/56 L Pulse Oximetry 96 94 95 Oxygen Delivery Method Nasal Cannula Nasal Cannula Nasal Cannula Oxygen Flow Rate 1 1 1 12/09/23 22:37 12/09/23 23:07 12/09/23 23:35 Temperature 97.9 F Pulse Rate 83 86 92 Respiratory Rate 17 18 12 Blood Pressure 109/68 97/57 L 105/63 Pulse Oximetry 95 94 97 Oxygen Delivery Method Nasal Cannula Nasal Cannula Nasal Cannula Oxygen Flow Rate 1 1 1 12/10/23 00:08 12/10/23 00:37 12/10/23 02:00 Temperature 97.7 F Pulse Rate 92 94 80 Respiratory Rate 16 18 16 Blood Pressure 112/62 95/52 L 102/56 L Pulse Oximetry 97 95 95 Oxygen Delivery Method Nasal Cannula Nasal Cannula Nasal Cannula Oxygen Flow Rate 1 1 1 12/10/23 02:58 12/10/23 04:00 12/10/23 05:02 Temperature 98.8 F Pulse Rate 87 84 87 Respiratory Rate 16 20 8 L Blood Pressure 105/64 109/69 102/61 Pulse Oximetry 97 95 98 Oxygen Delivery Method Nasal Cannula Nasal Cannula Nasal Cannula Oxygen Flow Rate 1 1 1 12/10/23 06:00 12/10/23 07:59 Temperature 97.6 F Pulse Rate 85 93 Respiratory Rate 10 L 17 Blood Pressure 107/68 106/58 L Pulse Oximetry 98 97 Oxygen Delivery Method Nasal Cannula Room Air Oxygen Flow Rate 1 BMI result Body Mass Index 37.3 Const Other: Appearance: Alert. Oriented X3. No acute distress. Eyes: Pupils equal, round and reactive to light. ENT: Pharynx normal. Neck: Normal inspection. Neck supple. No lymph nodes noted. No crepitus CVS: Normal heart rate and rhythm. Pulses normal. Normal S1 and S2 Respiratory: No respiratory distress. Breath sounds normal. No Wheezing. No rales Abdomen: Soft , distended in the suprapubic area, bladder palpable. No rigidity. No distention. Skin: Skin warm and dry. Normal skin color. Normal skin turgor. Extremities: No lower extremity edema. No Lacerations. No Rash Neuro: Oriented X 3. No motor deficit. No sensory deficit. Moving all extremities. No slurred speech. CN 2 through 12 grossly intact Psych: calm, cooperative, tearful Course Course Course Narrative: -all of patient's labs pending -bladder scan shows 1300 mL of urine, discussed with the patient that she will need a Olivera catheter, patient agreeable -care team consult pending Consultations Additional Consultation(s): 12/10/2023 at 09:49 Dr. Fawad Brenner's Note: The patient was seen by the care team and I obtained the following information from the care team provider. The patient binge drinks and was drinking large amount of alcohol. She then wanted to sleep and took trazodone and Seroquel. She was not intending to harm or kill herself. Apparently she has been under lot of stress and she has had similar behavior in the past. In June of 2023 she did take a large amount of Ativan to help her sleep but was not suicidal at that time. I did talk to the patient. She denied trying to hurt herself with medications and drinking alcohol. She told me that she has a very high pressure job and often has severe insomnia and she will drink alcohol to try to help her sleep. She does have a therapist and a prescribing psychiatrist that she was going to see to get help with her insomnia. My interpretation of the patient's laboratory evaluation was as follows: CBC was normal. CMP was normal. Urinalysis was negative. Salicylates and acetaminophen were below detectable limits. Urine tox screen was negative. Alcohol level was elevated 240. The patient appear sober at this time, she was able to walk without any difficulty. The patient will be discharged home with follow-up as per the care team. Medications Administered Discontinued Medications Generic Name Dose Route Start Last Admin Trade Name Freq PRN Reason Stop Dose Admin Sodium Chloride 2,000 mls @ 999 mls/hr 12/09/23 18:06 12/09/23 20:54 Ns IVCONT 12/09/23 20:06 Infused .Q2H1M ONE Infusion Sodium Chloride 1,000 mls @ 999 mls/hr 12/09/23 20:02 12/09/23 22:00 Ns IVCONT 12/09/23 21:02 Infused .Q1H1M ONE Infusion Potassium Chloride 60 meq 12/10/23 00:13 12/10/23 00:19 Potassium Chloride Packet 20 Meq Packet PO 12/10/23 00:14 60 meq ONCE ONE Administration Medical Decision Making Medical Decision Making [facility] Narrative: -my interpretation of labs, normal hematology and chemistry, toxicology positive for alcohol, level 240, negative level for acetaminophen and salicylates Differential Diagnosis Differential Diagnoses: The differential diagnosis associated with the presentation includes (Depression, chronic insomnia, alcohol intoxication) Admission/Observation Consideration of admission/observation: Escalation of care including admission/observation considered (Patient is under physician observation waiting to be seen by the care team) Lab Data MDM Lab Attestation statement: I reviewed the patient's lab results. 12/09/23 15:50 12/09/23 15:50 Labs: Lab Results 12/09/23 12/09/23 Range/Units 15:50 16:34 WBC 7.2 (4.8-10.8) X10*3/uL RBC 4.20 (4.20-5.50) X10*6/uL Hgb 13.5 (12.0-16.0) g/dl Hct 39.1 (37.0-47.0) % MCV 93.1 (80.0-98.0) fL MCH 32.1 (27.0-33.0) pg MCHC 34.5 (31.0-35.0) g/dl RDW 12.6 (11.0-16.0) % Plt Count 206 (160-400) X10*3/uL MPV 9.4 (9.4-12.3) fL Immature Gran % (Auto) 0.3 (0.0-0.4) % Neut % (Auto) 46.0 (45-73) % Lymph % (Auto) 40.5 H (20-40) % [place] % (Auto) 8.6 (2-11) % Eos % (Auto) 3.9 (0-4) % Baso % (Auto) 0.7 (0-2) % Lymph # (Auto) 2.9 (1.2-4.9) X10*3/uL [place] # (Auto) 0.6 (0.1-1.2) X10*3/uL Eos # (Auto) 0.3 (0.0-0.4) X10*3/uL Baso # (Auto) 0.1 (0.0-0.2) X10*3/uL Abs Immat Gran (auto) 0.02 (0.00-0.03) X10*3/uL Absolute Neuts (auto) 3.3 (2.0-8.3) x10*3/uL Absolute Nucleated RBC 0.000 (0.0-0.012) X10*3/uL Nucleated RBC % (auto) 0.0 (0.0-0.2) /100WBC Sodium 140 (135-145) mmol/L Potassium 3.7 (3.3-5.1) mmol/L Chloride 107 (96-108) mmol/L Carbon Dioxide 27 (22-29) mmol/L Anion Gap 10 L (12-20) BUN 12 (9-16) mg/dL Creatinine 0.69 (0.5-1.4) mg/dL Estim Creat Clear Calc 116.6 Estimated GFR > 60 Random Glucose 85 (60-115) mg/dL Calcium 8.6 D (8.4-10.2) mg/dL Magnesium 2.0 (1.6-2.6) mg/dL Total Bilirubin 0.2 (0.0-1.0) mg/dL Direct Bilirubin < 0.2 (0.0-0.5) mg/dL AST 17 (5-31) U/L ALT 18 (0-31) U/L Alkaline Phosphatase 67 (39-117) U/L Total Protein 6.9 (6.5-8.0) g/dL Albumin 3.9 (3.5-5.0) g/dL Urine Color Yellow Urine Appearance Clear Urine pH 6.5 (5.0-9.0) Ur Specific [place] <= 1.005 (1.005-1.025) Urine Protein Negative (Neg-Trace) mg/dL Urine Glucose (UA) Negative (Negative) mg/dL Urine Ketones Negative (Negative) mg/dL Urine Blood Negative (Negative) Urine Nitrite Negative (Negative) Ur Leukocyte Esterase Negative (Negative) Salicylates < 5.0 L (15-30) mg/dL Urine Opiates Screen Not Detected (Not Detect) Ur Buprenorphine Scrn Not Detected (Not Detect) ng/mL Ur Oxycodone Screen Not Detected (Not Detect) ng/mL Urine Methadone Screen Not Detected (Not Detect) ng/mL Urine Fentanyl Screen Not Detected (Not Detect) Acetaminophen < 3 (<30) mcg/mL Ur Barbiturates Screen Not Detected (Not Detect) Ur Phencyclidine Scrn Not Detected (Not Detect) Ur Amphetamines Screen Not Detected (Not Detect) U Benzodiazepines Scrn Not Detected (Not Detect) Urine Cocaine Screen Not Detected (Not Detect) U Marijuana (THC) Screen Not Detected (Not Detect) Ethyl Alcohol 240 mg/dL Discharge Plan Discharge Clinical Impression: Alcohol use disorder, Insomnia Alcohol intoxication Qualifiers: Complication of substance-induced condition: uncomplicated Qualified Code(s): F 10.920 - Alcohol use, unspecified with intoxication, uncomplicated Patient Disposition: Home, Self-Care Additional Instructions: Your alcohol level was 240, the legal limit of alcohol intoxication is 80. You should consider getting help with your alcohol use disorder. Continue taking medications as prescribed by your provider Please follow the Care Team plan Follow-up with your doctor in 2 days. Please return to the emergency department if your symptoms get worse or if you develop any symptoms that are concerning to you. Prescriptions: No Action trazodone 50 mg tablet 50 mg PO BEDTIME PRN (Reason: insomnia) Qty: 10 0RF bupropion HCl [Wellbutrin SR] 150 mg tablet sustained-release 12 hr 150 mg PO DAILY bupropion HCl [Wellbutrin XL] 300 mg tablet extended release 24 hr 300 mg PO QAM lorazepam [Ativan] 1 mg tablet 3 mg PO BEDTIME PRN vitamin B complex Tablet 1 tab PO DAILY lansoprazole [Prevacid] 30 mg capsule,delayed release(DR/EC) 30 mg PO DAILY tizanidine 4 mg tablet 4 mg PO TID hydroxyzine HCl 50 mg tablet 50 mg PO BID Print Language: Portuguese
--- NOTE | 2023-12-09 16:38 | PC.NURSE ---
craig cath in place, pt tolerated the procedure well, 1600 ml of clear yellow urine drained
--- NOTE | 2023-12-09 16:46 | MHC.EDTECH ---
Patient belongings in ED POD locker #9
--- NOTE | 2023-12-09 16:52 | PC.NURSE ---
poison control called and spoke to Kindra- recommend 2 additional ekg's 2 hour apart from the original, keeping the potassium above 4 and magnesium above 2, aware
[2023-12-09 16:56] LABS: Appearance Urine Clear; Color Urine Yellow; Glucose Urine UA Negative (Negative); Leukocyte Esterase Urine Negative (Negative); Nitrite Urine Negative (Negative); PH 6.5 (5.0-9.0); Specific Gravity - Urine <= 1.005 (1.005-1.025); Urine Blood Negative (Negative); Urine Ketones Negative (Negative); Urine Protein Negative (Neg-Trace)
[2023-12-09 17:07] LABS: Amphetamine Screen Urine Not Detected (Not Detect); Barbiturates, Urine Not Detected (Not Detect); Benzodiazepines Screen Urine Not Detected (Not Detect); Buprenorphine Scr Not Detected (Not Detect); Cannabinoid Screen Urine Not Detected (Not Detect); Cocaine Screen Urine Not Detected (Not Detect); Fentanyl, urine Not Detected (Not Detect); Methadone Screen, Urine Not Detected (Not Detect); Opiate Screen Urine Not Detected (Not Detect); Oxycodone Screen Urine Not Detected (Not Detect); Phencyclidine Screen Urine Not Detected (Not Detect)
--- NOTE | 2023-12-09 18:35 | ECG_ITS ---
Test Reason : OVERDOSE Blood Pressure : / mmHG Vent. Rate : 080 BPM Atrial Rate : 080 BPM P-R Int : 162 ms QRS Dur : 084 ms QT Int : 406 ms P-R-T Axes : 058 049 032 degrees QTc Int : 468 ms Normal sinus rhythm Normal ECG When compared with ECG of 09-DEC-2023 15:37, No significant change was found Referred By: Thalia Love Electronically Signed By:WAYNE ESCALERA
--- NOTE | 2023-12-09 18:35 | ECG_ITS ---
Test Reason : OD/REPEAT Blood Pressure : / mmHG Vent. Rate : 095 BPM Atrial Rate : 095 BPM P-R Int : 154 ms QRS Dur : 086 ms QT Int : 360 ms P-R-T Axes : 047 056 031 degrees QTc Int : 452 ms Normal sinus rhythm Low voltage QRS Borderline ECG When compared with ECG of 09-DEC-2023 18:37, No significant change was found Referred By: Thalia Love Electronically Signed By:WAYEN ESCALERA
[2023-12-09] MEDS: 0.9 % Sodium Chloride 2,000 ML 999 ML IVCONT (18:37)
--- NOTE | 2023-12-09 19:15 | MHC.EDTECH ---
This tech took over care of patient at 1900,patient is resting,warm blanket given per request,this tech will be the 1-1 sitter at bedside for safety
--- NOTE | 2023-12-09 19:30 | MHC.EDTECH ---
Vitals taken,BP is low 88/41,RN Nasra aware and at bedside,rechecked 89/53 HR 86,
--- NOTE | 2023-12-09 20:46 | PC.NURSE ---
This RN spoke to Poison Control, spoke to Kindra, discussed with Kindra results of EKG and urine toxicology, provided vitals signs. Per Kindra continue to monitor patient's BPs, schedule repeat EKG at 12/10/2023 at 1:00 am.
[2023-12-09] MEDS: 0.9 % Sodium Chloride 1,000 ML 999 ML IVCONT (20:56)
--- NOTE | 2023-12-09 21:00 | PC.NURSE ---
Dr. Love made aware of soft BP's, plan to monitor BP's, administer IV fluids per MAR.
--- NOTE | 2023-12-09 21:08 | MHC.EDTECH ---
Hourly rounds and vitals completed,patient is resting ,easily arousable,resp.rate WNL,warm blanket given.1-1 sitter at bedside
--- NOTE | 2023-12-09 22:26 | MHC.EDTECH ---
Emptied patient's Olivera 925MLS of clear yellow urine.
--- NOTE | 2023-12-09 22:55 | PC.NURSE ---
Patient appears to be sleeping in a stretcher bed, eyes closed, even chest wall rise and fall of chest noted, call keys within reach, 1:1 sitter at bedside.
--- NOTE | 2023-12-09 23:00 | PC.NURSE ---
Luz Elena with Poison Control called and recommended to supplement potassium to maintain it around 4. Dr. Love made aware.
--- NOTE | 2023-12-09 23:44 | MHC.EDTECH ---
Patient drank 2 cups of ice water,patient tolerated well
[2023-12-10] VITALS (9 sets, daily range): BP systolic 95–112; BP diastolic 52–69; PULSE 80–94; RESP 8–20; TEMP 36.4–37.1; O2SAT 95–98
--- NOTE | 2023-12-10 00:09 | MHC.EDTECH ---
Patient ate a cup of jello,tolerated well
[2023-12-10] MEDS: Potassium Chloride Packet 20 MEQ PACKET 60 MEQ PO (00:19)
--- NOTE | 2023-12-10 01:01 | MHC.EDTECH ---
Repeat EKG taken per order and signed by provider,patient drank two cups of ice water per request
--- NOTE | 2023-12-10 02:01 | MHC.EDTECH ---
Hourly rounds and vitals completed,patient is resting,1-1 sitter at bedside
--- NOTE | 2023-12-10 02:53 | MHC.EDTECH ---
Report given to Humaira RIVERS
--- NOTE | 2023-12-10 07:25 | PC.NURSE ---
Calm and cooperative, ate well for breakfast, denies SI/HI. Olivera draining clear yellow urine
--- NOTE | 2023-12-10 07:58 | PC.NURSE ---
Patient requesting for craig cath to be removed, PA notified stating okay for cath to be removed. Craig removed and patient ambulated to bathroom to attempt to void
--- NOTE | 2023-12-10 08:01 | PC.NURSE ---
Patient reporting able to void after craig cath removal
== END 2023-12-10 10:17 | disposition home or self-care (01) ==
PROVIDERS: Physician Assistant; Emergency Provider Emergency Medicine Emergency Medical Services; PCP Internal Medicine
DX: F10.920 Alcohol use, unspecified with intoxication, uncomplicated (principal); Y90.8 Blood alcohol level of 240 mg/100 ml or more; G47.00 Insomnia, unspecified; R33.9 Retention of urine, unspecified; F32.A Depression, unspecified; F41.9 Anxiety disorder, unspecified; E78.5 Hyperlipidemia, unspecified; Z79.899 Other long term (current) drug therapy
CPT/HCPCS: 36415; 51701; 80048; 80076; 80143; 80179; 80307; 81003; 83735; 85025; 93005; 96360; 96361; 99285; S9485

== ENCOUNTER → 2023-12-09 15:31 | Outpatient (BNV) | payer OTHER, SELFPAY | PROVIDERS: Emergency Provider Emergency Medicine Emergency Medical Services; PCP Internal Medicine; Visit Provider Internal Medicine | DX: T50.901A Poisoning by unspecified drugs, medicaments and biological substances, accidental (unintentional), initial encounter (principal) | CPT/HCPCS: 93010 ==

== ENCOUNTER 2023-12-18 08:37 | Outpatient (REF) | payer OTHER, SELFPAY ==
--- NOTE | ~2023-12-18 | XR_ITS ---
EXAMINATION: XR BILATERAL KNEES STANDING AND RIGHT KNEE CLINICAL INFORMATION: Reason for Exam M25.561 - Pain in right knee COMPARISON: Knee radiographs 02/17/2022 TECHNIQUE: 1 view of the bilateral knees standing. 2 views of the right knee. FINDINGS: RIGHT KNEE: No acute fracture or dislocation. Orthopedic hardware again seen in the right knee with surgical tracts. No evidence of hardware fracture or complication. Moderate to advanced osteoarthritis of the knee similar to prior with near-complete loss of medial compartment joint space and tricompartmental osteophytes. Small suprapatellar joint effusion. Soft tissues are unremarkable. LEFT KNEE: Limited single view of the left knee is unremarkable. XR/XR knee RT 3V IMPRESSION: Surgical changes of the right knee with moderate to advanced osteoarthritis similar to prior. Small suprapatellar joint effusion.
== END 2023-12-18 08:38 | disposition home or self-care (01) ==
LOC: HO.HOSX 08:37
PROVIDERS: Visit Provider Orthopaedic Surgery
DX: M25.561 Pain in right knee (principal)
CPT/HCPCS: 73562

== ENCOUNTER 2023-12-18 10:20 | Outpatient (AMB) | payer OTHER, SELFPAY ==
[2023-12-18 10:29] VITALS: BMI 36.0
--- NOTE | 2023-12-18 10:29 | MHC.OFFVIS ---
Vital Signs 12/18/23 10:29 Height 5 ft 6 in Weight 223 lb BMI 36.0 Intake Visit Reasons: OV- RT Knee OA dx sx Intake Note: Swathi, 53 yr old female, presents today to discuss RT TKA. PT reports experiencing sharp pain on the inside of her knee, it is hard to extend, and often gets stiff. She also reports feeling movement inside of the knee and having trouble walking up stairs for extended periods of time. She also is requesting a new elbow brace. Allergies No Known Allergies Allergy (Verified 12/18/23 10:32) NKA Allergy (Unknown, Uncoded 12/18/23 10:32) Unknown HPI HPI OV- RT Knee OA dx sx: Details: Swathi is a 53-year-old woman who I saw nearly 3 years ago for her elbow and her right knee. She comes in today complaining of persistent right knee pain. She has had injections and gel in the past. Her complaint now is that she is unable to ambulate comfortably. She has had to restrict her activities as a result. She states she can not walk for more than 15 minutes without pain. She states that she goes shopping and has to stop after short period of time because of pain. She did have 2 ACL reconstructions in [place] many years ago. [facility] Medical History Obesity Obesity Colon polyps Urinary incontinence Coronary artery disease Hyperlipidemia Osteoarthritis of right knee Sleep apnea Acid reflux Anxiety Depression Surgical History H/O gastric sleeve H/O elbow surgery History of colonoscopy Presence of neurostimulator History of breast augmentation History of arthroscopic surgery of elbow History of removal of retained hardware History of right knee surgery Hx of reconstruction of anterior cruciate ligament tear Family History Father Medical history unknown Mother Oropharyngeal cancer Brother No problems noted. Son No problems noted. 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 I recommend gel, unloading brace and PRP. I discussed my rationale for these and the primary 1 is that we want to try to avoid arthroplasty given her young age. She has had some relief with the gel in the past and I think an unloading brace would be helpful given that her pain is medial and her radiographs demonstrate medial compartment arthrosis. Orders: Orders XR knee RT 3V Today M25.561 - Pain in right knee Coding Level of Care Code Est Pt Level 4 (86961) Diagnoses Osteoarthritis of right knee M17.11
== END 2023-12-18 11:12 | disposition home or self-care (01) ==
PROVIDERS: PCP Internal Medicine; Visit Provider Orthopaedic Surgery
DX: M17.11 Unilateral primary osteoarthritis, right knee (principal)
CPT/HCPCS: 99213

== ENCOUNTER 2023-12-22 11:28 | Outpatient (AMB) | payer OTHER, SELFPAY ==
--- NOTE | 2023-12-22 11:38 | MHC.OFFVIS ---
Vital Signs 12/22/23 11:39 Height 5 ft 6 in Weight 223 lb BMI 36.0 Intake Visit Reasons: Right Knee Durolane Injection Intake Note: Swathi is a 53 year old female who presents today for a Right Knee Durolane Injection. She will be going out of town for vacation but when she returns we will be looking to discuss right knee PRP. She met with Migel today and was fit for a custom knee brace. Allergies No Known Allergies Allergy (Verified 12/22/23 11:39) NKA Allergy (Unknown, Uncoded 12/22/23 11:39) Unknown HPI HPI Right Knee Durolane Injection: Details: Swathi is a 53 year old female who presents today for a Right Knee Durolane Injection. She will be going out of town for vacation but when she returns we will be looking to discuss right knee PRP. She met with Migel today and was fit for an unloading brace. [facility] Medical History Obesity Obesity Colon polyps Urinary incontinence Coronary artery disease Hyperlipidemia Osteoarthritis of right knee Sleep apnea Acid reflux Anxiety Depression Surgical History H/O gastric sleeve H/O elbow surgery History of colonoscopy Presence of neurostimulator History of breast augmentation History of arthroscopic surgery of elbow History of removal of retained hardware History of right knee surgery Hx of reconstruction of anterior cruciate ligament tear Family History Father Medical history unknown Mother Oropharyngeal cancer Brother No problems noted. Son No problems noted. Social History Alcohol intake: current Alcohol intake frequency: a few times a week Current occupational status: employed Current occupation: [employer] Physical Exam Vital Signs: BMI result Body Mass Index 36.0 Extrem Other: skin c/d/i Office Procedures Joint Injection/Drain Joint Injection/Drain Details: Injected Durolane. Site was prepped using aseptic technique. Patient tolerated the procedure well. Primary Site: right knee Approach Used: anterolateral Coding 94629 - Large joint Procedure code (CPT) selection complete Assessment & Plan Assessment & Plan (1) Osteoarthritis of right knee: Code(s): M17.11 - Unilateral primary osteoarthritis, right knee Category: Medical Plan: Injected right knee with Durolane. Unloading brace and will consider PRP. Coding Level of Care Code Est Pt Level 2 (28667) Diagnoses Osteoarthritis of right knee M17.11 CPT Codes Coding - 48362 Large joint: 63365 - Large joint ([id number])
[2023-12-22 11:39] VITALS: BMI 36.0
== END 2023-12-22 12:08 | disposition home or self-care (01) ==
PROVIDERS: PCP Internal Medicine; Visit Provider Orthopaedic Surgery
DX: M17.11 Unilateral primary osteoarthritis, right knee (principal)
CPT/HCPCS: 20610

== ENCOUNTER → 2023-12-22 11:28 | Outpatient (BNVA) | payer OTHER, SELFPAY | PROVIDERS: PCP Internal Medicine; Visit Provider Orthopaedic Surgery | DX: M17.11 Unilateral primary osteoarthritis, right knee (principal) | CPT/HCPCS: 20610; J7318 ==

== ENCOUNTER 2024-02-22 09:22 | Outpatient (AMB) | payer OTHER, SELFPAY ==
--- NOTE | 2024-02-22 09:25 | A.OFFVIS_ITS ---
Intake Visit Reasons: OV- Right knee pain follow up Intake Note: Swathi is a 53 year old female who presents today for a follow up of her right knee OA. At her last visit on 12/22/23 she received a Durolane injections and an unloading brace was ordered. Patient reports that she had no relief with the gel injection. She is wearing her medial unloading brace, with this brace she is having medial knee pain. She cannot engage in large periods of ambulation and this is impacting her mentally and physically. She is ready to advance in the next treatment options. Allergies No Known Allergies Allergy (Verified 12/22/23 11:39) NKA Allergy (Unknown, Uncoded 12/22/23 11:39) Unknown HPI HPI OV- Right knee pain follow up: Details: Swathi is a 53-year-old woman who comes in today with ongoing right knee pain. I have injected her with steroids and we performed viscosupplementation and she has an unloading brace. All of these have been minimally helpful. She continues to be unable to engage in daily activities without pain. She can go for a walk in the park with her son she has difficulty dancing and bike riding and feels the quality of her life is diminished. She feels this is contributing to her ongoing depression and weight gain. She has a long history of surgery including 2 ACL reconstructions and a removal of hardware. Her pain is medial and her radiographs show varus pattern osteoarthritis of the right knee with severe medial compartment joint space loss [facility] Medical History Obesity Obesity Colon polyps Urinary incontinence Coronary artery disease Hyperlipidemia Osteoarthritis of right knee Sleep apnea Acid reflux Anxiety Depression Surgical History H/O gastric sleeve H/O elbow surgery History of colonoscopy Presence of neurostimulator History of breast augmentation History of arthroscopic surgery of elbow History of removal of retained hardware History of right knee surgery Hx of reconstruction of anterior cruciate ligament tear Family History Father Medical history unknown Mother Oropharyngeal cancer Brother No problems noted. Son No problems noted. Social History Alcohol intake: current Alcohol intake frequency: a few times a week Current occupational status: employed Current occupation: [employer] Physical Exam Extrem Other: TTP medial compartment right knee varus alignement antalgic gait 5-130 Results Reviewed Results Reviewed: Severe medial compartment osteoarthritis with evidence of prior ACL reconstruction Assessment & Plan Assessment & Plan (1) Post-traumatic osteoarthritis of knee: Code(s): M17.30 - Unilateral post-traumatic osteoarthritis, unspecified knee Category: Medical Plan: This is a 53-year-old woman who has failed conservative management for her posttraumatic osteoarthritis of her right knee. I had a long discussion with her regarding treatment options. Given her prior ACL reconstructions and symptoms I do not recommend a partial but rather a total knee replacement. I discussed with her the risks, benefits and alternatives including, but not limited to, the risk of infection, aseptic loosening, stiffness, need for further surgery, medical complications associated with surgery. She expressed understanding and we will proceed forward accordingly. I will introduce her to our nurse navigator. Coding Level of Care Code Est Pt Level 4 (39100) Diagnoses Post-traumatic osteoarthritis of knee M17.30
== END 2024-02-22 10:15 | disposition home or self-care (01) ==
PROVIDERS: PCP Internal Medicine; Visit Provider Orthopaedic Surgery
DX: M17.31 Unilateral post-traumatic osteoarthritis, right knee (principal)
CPT/HCPCS: 99214

== ENCOUNTER → 2024-02-22 09:22 | Outpatient (BNVA) | payer OTHER, SELFPAY | PROVIDERS: PCP Internal Medicine; Visit Provider Orthopaedic Surgery ==

== ENCOUNTER → 2024-04-11 08:57 | Outpatient (BNVA) | payer OTHER, SELFPAY | PROVIDERS: PCP Internal Medicine | DX: Z01.818 Encounter for other preprocedural examination (principal) ==

== ENCOUNTER 2024-05-09 08:41 | Outpatient (REF) | payer OTHER, SELFPAY | END 2024-05-09 08:42 | disposition home or self-care (01) | LOC: HO.HOSX 08:41 | PROVIDERS: Visit Provider Physician Assistant | DX: M25.562 Pain in left knee (principal); M17.11 Unilateral primary osteoarthritis, right knee | CPT/HCPCS: 73560; 73562 ==

== ENCOUNTER 2024-05-09 08:57 | Outpatient (AMB) | payer OTHER, SELFPAY ==
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
== END 2024-05-09 10:15 | disposition home or self-care (01) ==
PROVIDERS: PCP Internal Medicine; Visit Provider Physician Assistant
DX: M17.30 Unilateral post-traumatic osteoarthritis, unspecified knee (principal)
CPT/HCPCS: 99213

== ENCOUNTER 2024-05-14 06:07 | Day surgery (SDC) | payer OTHER, SELFPAY ==
[2024-04-16 12:05] VITALS: BP 117/75; PULSE 95; RESP 16; O2SAT 98; BMI 37.6
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
[2024-04-16 14:50] LABS: MRSA Nasal PCR NEGATIVE (Negative); SA Nasal PCR NEGATIVE (Negative)
[2024-05-14] VITALS (16 sets, daily range): BP systolic 100–126; BP diastolic 63–79; PULSE 80–99; RESP 16–18; TEMP 36.1–36.7; O2SAT 92–98; BMI 38.6
--- NOTE | ~2024-05-14 | XR_ITS ---
EXAMINATION: XR KNEE, RIGHT CLINICAL INFORMATION: rt tka COMPARISON: Right knee radiograph 05/09/2024 TECHNIQUE: AP and lateral views of the right knee. FINDINGS: Prosthetic components of the total knee arthroplasty are appropriately aligned. No periprosthetic fracture. Gas from recent surgery is present in the joint and surrounding soft tissues. A joint effusion is present. Anterior overlying skin diane noted. XR/XR knee RT 2V IMPRESSION: Expected postoperative appearance of the right knee following total knee arthroplasty. Electronically signed by: Jinny Ren DO 05/14/2024 04:13 PM [facility]
[2024-05-14] MEDS: Lactated Ringers 1,000 ML 100 ML IVCONT ×2 (06:33→14:31)
[2024-05-14 06:59] LABS: UPreg QC Valid YES
[2024-05-14 07:00] LABS: Urine Pregnancy NEGATIVE (NEGATIVE)
[2024-05-14 07:09] LABS: Hematocrit 35.3 % (37.0-47.0)
--- NOTE | 2024-05-14 07:44 | MHC.SHP ---
Pre-Procedural Eval Section A - 24 Hr Update-Section A only Date of Service: 05/14/24 The patient is an INPATIENT: No Changes since office visit: No Cold of Flu in the past 2 weeks, No New Medical Problems, No Changes in Medication and No Patient answered all questions The patient has been examined within 24 hours of the surgical procedure. The History & Physical has been completed within 30 days and I have reviewed it.: Yes Section B - Complete if H&P > 30 days Chief Complaint: Unilateral post-traumatic osteoarthritis, Allergies: Allergies Allergy/AdvReac Type Severity Reaction Status Date / Time No Known Allergies Allergy Verified 05/14/24 06:23 Plan I have reviewed the history and physical and performed a pertinent physical examination on my patient. No changes have occurred unless specified. Time Spent With Patient Time: Total time managing care of this patient today ____ minutes.
--- NOTE | 2024-05-14 08:15 | PC.NURSE ---
patient interstim was turned off preop with assistance from dr. hayley cedillo.
--- NOTE | 2024-05-14 10:27 | PM.OP ---
Brief Operative Note Date of Service: 05/14/24 Pre-op diagnosis: Right knee OA Post-op diagnosis: same Procedure: Right TKA Implants: Marnie Triathlon posterior stabilized cemented 08/27/12/a Surgeon: Matthew Freitas MD Anesthesia: regional and spinal Was an Barrel Filler used for this Procedure?: Yes Barrel Filler: Alda Hays Estimated blood loss (mL): 20 Tourniquet time (min): 75 IV fluids (mL): 1,000 Pathology: other Condition: stable Disposition: PACU
--- NOTE | 2024-05-14 10:30 | W.PM.OPN ---
Operative Note Operative Note Date of Service: 05/14/24 Narrative: Date of Service: 05/14/24 Pre-op diagnosis: Right knee OA Post-op diagnosis: same Procedure: Right TKA Implants: [employer] posterior stabilized cemented 08/27/12ps/29a Surgeon: Matthew Freitas MD Anesthesia: regional and spinal Was an Paper Bag Inspector used for this Procedure?: Yes Paper Bag Inspector: Alda Hays Estimated blood loss (mL): 20 Tourniquet time (min): 75 IV fluids (mL): 1,000 Pathology: other Condition: stable Disposition: PACU Procedure in detail: The patient was brought to the operating room and prepped and draped in standard sterile fashion. A time-out was called to identify proper site proper procedure proper surgeon and IV antibiotics were administered. 1 g of IV tranexamic acid was administered. I began by making a midline incision to the retinaculum and performed a medial parapatellar arthrotomy. The patella was translated laterally and the knee was flexed up.The medial compartment was eburnated. I performed a small medial peel and resected the infrapatellar fat pad. Ally's line was then used to drill my intramedullary femoral guide and my distal femur cut of 10 mm was made in 5 degrees of valgus while protecting the soft tissues. I then measured a # 3 femur and placed my cutting guide and made my anterior posterior and chamfer cuts in 3 deg ER while protecting the soft tissues at all times. I then made my box but removing the PCL. Once I was satisfied with my cuts I turned my attention to the tibia. I removed the meniscus medially and laterally and , using an external cutting guide, in line with the tibial crest and the third ray, I made my distal tibial cut in 0 deg slope of while protecting the posterior soft tissues at all times. An extension block was used to confirm appropriate amount of bony resection. I then sized a #4 tibia and once I was satisfied that there was complete tibial coverage I placed my trial and with the trial femur in place took the knee through range of motion. I was satisfied with the extension and flexion as well as the balance at 0, 30 and 90 degrees. I then turned my attention to the patella where I removed 1 cm from the undersurface of the patella and then trialed a 29a patellar button. Again the knee was taken through range of motion I was satisfied with the tracking. I then prepared the tibia with a drill and punch. A femoral bone plug was placed and the knee was irrigated copiously. I then cemented the patella, tibia and femur in standard fashion. Axial compression and a clamp were used while the cement dried. Once the cement was hard on the back table all excess cement was removed and I trialed different inserts until I selected a #13 insert. The final insert was placed and local TXA was administered. The knee was then closed with a running Quill suture, a 3 0 Vicryl and diane on the skin. Patient was then placed in sterile dressing and brought to recovery room in stable condition there were no known complications.
--- NOTE | 2024-05-14 13:06 | PM.DS ---
DS: Providers Provider Date of Service: 05/15/24 Date of admission: 05/14/24 12:44 Primary care physician: Lindsay Otto MD DS: Summary Hospital Course Hospital Course: The patient underwent a successful right total knee arthroplasty, they were transferred to PACU and then to the floor to recover. During their stay, their vitals were stable, afebrile at ( ). Labs were unremarkable, H/H ( ). POD 1 they were started on Aspirin 325mg po bid for DVT ppx, they also received Physical Therapy services twice a day. Prior to discharge, their dressing was clean dry and intact and the plan was to be discharged home with VNA services. Time Attestation Discharge Coordination Time (in mins): 30 Quality: Safe Use of Opioids Does Pt have an Active Cancer Diagnosis on the Problem List?: No Quality: Stroke Does the patient have a stroke diagnosis?: No Physical Exam Vital Signs: Vital Signs: Last Vital Signs Temp 97.6 F 05/14/24 12:58 Pulse 83 05/14/24 12:58 Resp 16 05/14/24 12:58 BP 116/72 05/14/24 12:58 Pulse Ox 95 05/14/24 12:58 O2 Del Method Room Air 05/14/24 12:58 O2 Flow Rate 2 05/14/24 12:00 BMI result Body Mass Index 38.6 Const: General: cooperative, healthy appearing and no acute distress Resp: Effort & Inspection: normal respiratory effort and able to speak in complete sentences Cardio: Rate: regular rate Peripheral pulses: Peripheral pulses 2+ throughout GI: Palpation (GI): Soft to palpation Skin: Lesions: no lesions Rashes: no rashes Extrem: Other: right knee dressing is c/d/i. Able to dorsi/plantar flex. Calf is supple and nontender. Sensation intact. Pedal pulse intact. DS: Data Data Completed and Pending Pending studies at discharge: Pending at discharge 05/14/24 08:39 Surgical [PTH] Routine Labs on day of discharge: Laboratory Results - last 24 hr 05/14/24 05/14/24 06:15 06:56 Hgb 12.0 Hct 35.3 L Urine Test NEGATIVE Discharge Plan Discharge Anticipated Discharge Date/Time: 05/15/24 12:04 Patient Disposition: Home Health Service Discharge Diagnosis: s/p RTKA Referrals: Alda Hays PA-C [Physician Heavy Machinery Assembler] - 2 Weeks (05/30/24 09:00 [facility] Alda Hays PA-C ) Discharge Medications: New celecoxib 200 mg Capsule 200 mg PO BID 30 Days Qty: 60 0RF docusate sodium 100 mg Capsule 100 mg PO BID 14 Days Qty: 28 0RF enoxaparin 40 mg/0.4 mL Syringe 40 mg subcut Q24H 42 Days Qty: 16.8 0RF oxycodone 5 mg Tablet 5 mg PO Q4H PRN (Reason: Pain, Moderate(Pain Scale 4-6)) 7 Days Qty: 42 0RF Rx Instructions: Partial Fill upon patient request. nicotine 14 mg/24 hr Patch 24 Hour 14 mg transdermal Q24H Qty: 28 0RF [facility] See [facility] Instructions .MEDSUPPLY Qty: 1 0RF Rx Instructions: Folding Front wheeled walker multivitamin Tablet 1 tab PO DAILY betamethasone dipropionate 0.05 % ointment 1 appl TOPICAL BID PRN (Reason: Rash) Xkpwwn-Srcnjeab-Rqzwlpm 2 gummy PO DAILY trazodone 100 mg tablet 100 mg PO BEDTIME trazodone 50 mg tablet 50 mg PO BEDTIME PRN (Reason: Sleep) quetiapine 25 mg tablet 25 - 50 mg PO BEDTIME PRN (Reason: Mood) Rx Instructions: Takes 100 mg at bedtime and 25-50mg if needed. lorazepam [Ativan] 1 mg tablet 2 mg PO DAILY PRN (Reason: Anxiety) lansoprazole [Prevacid] 30 mg capsule,delayed release(DR/EC) 30 mg PO DAILY@0630 bupropion HCl 200 mg tablet sustained-release 12 hr 200 mg PO QAM eszopiclone 3 mg tablet 3 mg PO BEDTIME quetiapine [Seroquel] 100 mg tablet 100 mg PO BEDTIME clobetasol 0.05 % solution 1 appl topical DAILY PRN (Reason: Rash) tizanidine 4 mg capsule 4 mg PO BEDTIME PRN (Reason: Muscle Spasm) Discharge Orders: Discharge Order (Routine); Ordered 05/15/24 Ordered By: Roxann Dial Diet: Regular diet Activity on Discharge: Use cane or walker Print Language: Micronesian Activity Restrictions/Additional Instructions: Physical Therapy for Total knee arthroplasty: WBAT, gait training, ROM 0-12, quad strength Limit stair climbing No showering, no tub bath-keep dressing clean, dry and intact No driving x6 weeks Continue lovenox once a day x 6 weeks Follow up with [facility] in 2 weeks: Care Plan Goals: restore fxn to right knee Health Concerns: none Plan of Treatment: see above Assessment: stable for d/c
--- NOTE | 2024-05-14 13:07 | W.MHC.F2F ---
Service Date Service Date: 05/14/24 Encounter Date of encounter: 05/15/24 Reasons for Services Signs and symptoms assessed: s/p RTKA Pt. is considered homebound due to recent surgery. Unable to drive, poor balance, poor gait mechanics. Reason for physical therapy: home safety and mobility, therapeutic exercises, restore joint function, gait/transfer training and ADL training Homebound: Leaving the home is medically contraindicated at this time without the asist of a device and/or another person due th the listed conditions above and below. Reason homebound: unsteady gait / fall risk, leg weakness, pain with ambulation, pain with transfers, poor balance / fall risk and unable to drive Certification: Based on the above findings, I certify that this patient is confined to the home and needs intermittent intermediate care, physical therapy and/or speech therapy, or continues to need occupational therapy. The patient is under my care, and I have initiated the establishment of the plan of care. The patient will be followed by a physician who will periodically review the plan of care. Time Spent With Patient Time: Total time managing care of this patient today ____ minutes.
[2024-05-14] MEDS: ceFAZolin Sodium/Dextrose,Iso 2 GM/50 ML PIGGYBACK IV (14:31)
[2024-05-14] MEDS: HYDROmorphone HCl 0.5 MG/0.5 ML SYRINGE 0.25 MG IVPUSH (14:31)
--- NOTE | 2024-05-14 14:34 | PHA.MEDREC ---
Pharmacy Consult ? Medication Reconciliation Pharmacy has completed the medication reconciliation. Spoke to patient to confirm med list. Patient states she is not on any Medications. Patient states she has stopped taking all her medication for over 3 weeks ago.
[2024-05-14] MEDS: Acetaminophen 1,000 MG/100 ML PIGGYBACK 400 MG IV ×2 (16:05→20:02)
[2024-05-14] MEDS: oxyCODONE HCl Immed Release 5 MG TABLET PO (16:06)
[2024-05-14] MEDS: 0.9 % Sodium Chloride Flush 3 ML SYRINGE IVFLUSH (16:10)
--- NOTE | 2024-05-14 16:32 | PHA.MEDREC ---
Addendum entered by Adal Noel RPh 05/14/24 17:06: Reviewed by [facility]. Original Note: Pharmacy Consult ? Medication Reconciliation Pharmacy has completed the medication reconciliation. Spoke with patient and she confirmed her medications with me and stated in the last 2 months her Psychiatrist has been playing around with her medications and have been trying to ween her off her Quetiapine. She confirmed she still has the Quetiapine 100mg tables at home along with the Quetiapine 25mg tabs and states she takes 1 100mg tab at bedtime and if needed she will take 1-2 tabs as needed. She also confirmed she still has the Trazodone 100mg tabs at home along with the Trazodone 50mg tabs and states she has been taking 1 of the 100mg tabs and 1 of the 50mg tabs at bedtime with the Quetiapine 100mg. She has written text messages from when she takes her medications and she states she took her night morning mediations yesterday morning but didn't have the time when, her night medications last night at 1610 and again she took a Quetiapine 50mg tab at 2210, she took one Buspirone tab this morning before her surgery.
[2024-05-14] MEDS: Docusate Sodium 100 MG CAPSULE PO (19:59)
[2024-05-14] MEDS: QUEtiapine Fumarate 100 MG TABLET PO (19:59)
[2024-05-14] MEDS: traZODone HCL 100 MG TABLET 200 MG PO (19:59)
[2024-05-14] MEDS: oxyCODONE HCl ER 10 MG TAB.ER.12H PO (19:59)
[2024-05-14] MEDS: Celecoxib 200 MG CAPSULE PO (19:59)
[2024-05-15 00:11] VITALS: BP 125/67; PULSE 91; RESP 16; TEMP 36.1; O2SAT 96
[2024-05-15] MEDS: Lactated Ringers 1,000 ML 100 ML IVCONT (00:16)
[2024-05-15] MEDS: oxyCODONE HCl Immed Release 5 MG TABLET PO ×4 (00:20→10:49)
[2024-05-15] MEDS: 0.9 % Sodium Chloride Flush 3 ML SYRINGE IVFLUSH (00:37)
[2024-05-15] MEDS: Acetaminophen 1,000 MG/100 ML PIGGYBACK 400 MG IV ×2 (02:51→07:36)
[2024-05-15 03:38] VITALS: BP 117/62; PULSE 86; RESP 16; TEMP 36; O2SAT 95
[2024-05-15 07:00] VITALS: BP 131/74; PULSE 82; RESP 18; TEMP 36.2; O2SAT 98
[2024-05-15] MEDS: Enoxaparin Sodium 40 MG/0.4 ML SYRINGE SUBCUT (07:36)
[2024-05-15] MEDS: buPROPion HCl XL 150 MG TAB.ER.24H PO (07:41)
[2024-05-15] MEDS: Celecoxib 200 MG CAPSULE PO (07:41)
[2024-05-15] MEDS: Docusate Sodium 100 MG CAPSULE PO (07:41)
[2024-05-15] MEDS: oxyCODONE HCl ER 10 MG TAB.ER.12H PO (07:41)
[2024-05-15 08:10] LABS: MANUAL DIFF FLAG NO
[2024-05-15 08:15] LABS: Basophils Percent Auto 0.2 % (0-2); Hemoglobin 11.1 g/dl (12.0-16.0); Imm Gran Abs Auto 0.05 X10*3/uL (0.00-0.03); Imm Gran Pct Auto 0.5 % (0.0-0.4); Lymphocytes Absolute Auto 1.9 X10*3/uL (1.2-4.9); Lymphocytes Percent Auto 17.1 % (20-40); Mean Corpuscular HGB Conc 33.6 g/dl (31.0-35.0); Mean Corpuscular Hemoglobin 31.4 pg (27.0-33.0); Mean Corpuscular Volume 93.5 fL (80.0-98.0); Mean Platelet Volume 9.8 fL (9.4-12.3); Monocytes Absolute Auto 1.2 X10*3/uL (0.1-1.2); Monocytes Percent Auto 11.2 % (2-11); Neutrophils Absolute Auto 7.8 x10*3/uL (2.0-8.3); Platelet Count 187 X10*3/uL (160-400); Red Blood Count 3.53 X10*6/uL (4.20-5.50); Red Cell Distribution Width 13.2 % (11.0-16.0)
[2024-05-15 08:28] LABS: Anion Gap 12 (12-20); Blood Urea Nitrogen 14 mg/dL (9-16); Calcium 8.6 mg/dL (8.4-10.2); Carbon Dioxide 23 mmol/L (22-29); Chloride 106 mmol/L (96-108); Creatinine Clr Calc Pharmacy 109.3; Estimated Glomerular Filt Rate > 60; Glucose Fasting 106 mg/dL (60-99); Sodium 137 mmol/L (135-145)
--- NOTE | 2024-05-15 09:08 | HO.POSTANES ---
Post Anesthesia Evaluation Post Anesthesia Evaluation Date of Service: 05/14/24 Vital Signs: Vital Signs Temp Pulse Resp BP Pulse Ox O2 Del Method 05/15/24 07:00 97.1 F 82 18 131/74 98 Room Air 05/15/24 03:38 96.8 F 86 16 117/62 95 CPAP 05/15/24 00:11 96.9 F 91 16 125/67 96 Room Air Anesthesia: Spinal Mental Status: Awake Pain Control: Satisfactory Nausea/Vomiting: None Hydration: Adequate Anesthesia-Related Issues: No Anes. Related Issues
[2024-05-15 11:00] VITALS: BP 126/77; PULSE 85; RESP 16; TEMP 36.8; O2SAT 99
--- NOTE | 2024-05-15 12:10 | MHC.CM.PN ---
Female s/p R TKA she lives alone. She was independent with all functional mobility pre-op. She is ordered for VNA. Preferences obtained. Referrals sent. Patient will transport home with assist from her aunt.
== END 2024-05-15 12:47 | disposition home health service (06) ==
LOC: HO.SSS 10:22 → HO.S3 13:05
PROVIDERS: Anesthesiology; Physician Assistant; PCP Internal Medicine; Visit Provider Orthopaedic Surgery
PROC: (CPT 27447; principal; 2024-05-14 07:30)
DX: M17.31 Unilateral post-traumatic osteoarthritis, right knee (principal); M25.561 Pain in right knee; M79.89 Other specified soft tissue disorders; R26.2 Difficulty in walking, not elsewhere classified; Z99.89 Dependence on other enabling machines and devices; G47.33 Obstructive sleep apnea (adult) (pediatric); R91.1 Solitary pulmonary nodule; Z79.899 Other long term (current) drug therapy; Z96.82 Presence of neurostimulator; Z98.890 Other specified postprocedural states; Z79.84 Long term (current) use of oral hypoglycemic drugs; F17.210 Nicotine dependence, cigarettes, uncomplicated
CPT/HCPCS: 27447; 36415; 73560; 80048; 81025; 85014; 85018; 85025; 86850; 86900; 86901; 87640; 87641; 88305; 88311; 97110; 97116; 97161; 97530; C1713; C1776; J0131; J0665; J0690; J1100; J1171; J1650; J1885; J2003; J2250; J2371; J2405; J2704; J3010; J7120

== ENCOUNTER → 2024-05-14 06:07 | Outpatient (BNV) | payer OTHER, SELFPAY | PROVIDERS: PCP Internal Medicine; Visit Provider Orthopaedic Surgery | DX: Z47.1 Aftercare following joint replacement surgery (principal); Z96.651 Presence of right artificial knee joint | CPT/HCPCS: 27447; 99024; G0180 ==

== ENCOUNTER 2024-05-31 11:43 | Outpatient (AMB) | payer OTHER, SELFPAY ==
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
--- OUTSIDE RECORDS SUMMARY | 2024-06-05 08:03 | XMS_ITS ---
Author Organization [facility] [place] Address [address] [place] [address] Care Team Providers Care Steamer Gum Candy Name Role Phone Lindsay Otot Primary Care Provider UnavailPalmira Hardwick Unavailable [phone] Allergies No Known Allergies REASON FOR VISIT Pcp-11/16, Heel pain Medications Medication SIG (Take, Route, Frequency, Duration) Notes Start Date End Date Status KlonoPIN Not-Taking Work Note . . . Patient off of w ork today 07/09/19 07/09/2019 Not-Taking Effexor Not-Taking Medrol gianni 4mg as directed orally a s directed for 6 days 02/01/2022 Not-Taking traMADol HCl 50 MG 1 tablet as needed O rally Every 4-6 hours as needed for pain for 7 days 02/10/2022 Not-Taking Ativan Active Prevacid 30 MG 1 capsule Orally as needed Active Wellbutrin XL 300 MG 1 tablet in the mor ebonie Orally Once a day for 30 days Active Physical Therapy . . . 2-3x/week for 3-4 weeks 02/2022 Not-Taking Naproxen Not-Taking Medrol gianni 4mg as directed orally a s directed for 6 days 11/28/2023 Active DayVigo 10 MG 1 tablet at bedtime Orally Once a day Active SEROquel Active Social History Tobacco Use: Social History Observation Description Date Details (start date - stop date) Light tobacco s moker NA - NA Tobacco Use/Smoking Question Answer Notes Are you a: light tobacco smoker Additional Findings: Tobacco Non-User Current no n-smoker Alcohol Screen Question Answer Notes Did you have a drink containing alcohol in the p ast year? Yes Points 0 Interpretation Negative Tobacco use other than smoking: Question Answer Notes Are you an other tobacco user? 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 confirmed Vital Signs Height 5ft6.5in in 11/28/2023 Weight 223 lbs 11/28/2023 BMI 35.45 kg/m2 11/28/2023 Blood pressure systolic 130 mm Hg 11/28/19 24 Blood pressure diastolic 78 mm Hg 024 Encounters Encounter Location Date Provider Diagnosis [facility] [address] [place] [address] 11/28/2023 Palmira Perica Pain in left foot M79.672 ; Plantar fasciitis of left foot M72.2 ; Calcaneal spur, left foot M77.32 ; Interstitial myositis of left foot M60.172 and Bursitis of left foot M77.52 Assessments Encounter Date Diagnosis (ICD Code) Assessment Notes Treatment Notes Treatment Clinical Notes Section Notes 11/28/2023 Pain in left foot (ICD-10 - M79.672) 11/28/2023 Plantar fasciitis of left foot (ICD-10 - M72.2) Patient Educated with: HEEL CORD STRETCHES.pdf (HEEL CORD STRETCHES.pdf) Patient Educated with: RICE THERAPY.pdf (RICE THERAPY.pdf) 11/28/2023 Calcaneal spur, left foot (ICD-10 - M77.32) 11/28/2023 Interstitial myositis of left foot (ICD-10 - M60.172) 11/28/2023 Bursitis of left foot (ICD-10 - M77.52) Plan Of Treatment Medication Medication Name Sig Start Date Stop Date Notes Medrol gianni 4mg as directed orally as directed for 6 days 0 11/28/2023 Treatment Notes Assessment Notes Plantar fasciitis of left foot Patient E ducated with: HEEL CORD STRETCHES.pdf (HEEL CORD STRETCHES.pdf) Patient Educated with: RICE THERAPY.pdf (RICE THERAPY.pdf) Pending Test Test Name Order Date X ray : Foot, left 3V 11/28/2023 Next Appt Details Follow Up: 6 Weeks, Reason: Progress Notes * Swathi GARCIADOB:1970 (53 yo F)Acc No.[id number]:11/28/2023 Progress Note Patient:?Swathi Garcia Provider:?Palmira Watts DPM :1970???Age:53 Y???Sex:Female D ate:11/28/2023 Address:[address] [place] [address] , [facility] Pcp:Lindsay Otto Subjective: * Chief Complaints: * ???Pcp-05/24Heel pain * HPI: ???Heel pain:?Nature:?aching , tenderness.?Location:?Arch, LEFT.?Duration:?several weeks.?Course:?worse.?Aggrevated:?standing, walking, walking first thing in the morning/after rest.?Treatments:?rest/alter normal daily activity , change in shoes.? * ROS:?General/Constitutional:?Nausea?denies.?Vomiting?denies.?Hunger Thirst?denies.?Loss appetite?denies.?Chills?denies.?Fatigue?denies.?Fever?denies.?Night Sweats?denies.?Unexplained weight loss?denies.?Unexplained weight gain?denies.?HEENTM:?Dentures?denies.?Dizziness?denies.?Glasses/contacts?denies.?Retinopathy?de nies.?Blurred/double vision?denies.?TMJ?denies.?Discharge/drainage?denies.?Implants?denies.?Sore throat?denies.?Dental implants?denies.?Hard of hearing ?denies.?Difficulty chewing/swallowing/speaking?denies.?Nose bleeds?denies.?Sore mouth?denies.?Respiratory:?On Oxygen?denies.?Pneumonia/pleurisy?denies.?Bronchitis?denies.?Emphysema?denies.?C oughing?denies.?Cough blood?denies.?Shortness of breath?denies.?Wheezing?denies.?Cardiovascular:?Pacemaker?denies.?MVP?denies.?WPW?denies.?CHF?denies.?Heart attack?denies.?Septal defect?denies.?Rapid beat?denies.?Chest pain ?denies.?Atrial Fib.?denies.?Murmur/Palpitations?denies.?Gastrointestinal:?Hemorrhoids?denies.?Stomach/Abdominal pain?denies.?Dark blood stool?denies.?Irritable bowel ?denies.?Constipation?denies.?Diarrhea?denies.?Hematology:?Swelling?denies.?Clots?denies.?Varicose Veins?denies.?Bruising?denies.?Bleeding problem?denies.?Genitourinary:?Blood urine?denies.?Frequent/Painfu/urination/bladder control?denies.?Kidney stones?denies.?Infection (UTI)?denies.?Nephropathy?denies.?sex trans dis (STD)?denies.?Prostate?denies.?Musculoskeletal:?Hammertoes?denies.?Bunions?denies.?Back Pain?denies.?Muscle Cramps/ Resting?denies.?Muscle cramps / walking?denies.?Generalized aches and pains?admits.?Weakness?denies.?Integ.:?Miramontes?denies.?Scars?denies.?Corns/calluses?denies.?Ingrown nails?denies.?Painful nails?denies.?Open Sores?denies.?Rashes?denies.?Neurologic:?Difficulty sleeping?denies.?Brain disorder?denies.?Numbness?admits.?Balance trouble?denies.?Confusion?denies.?Fainting/blackouts?denies.?Tingling?denies.?Tr emors?denies.? * Medical History:? * Surgical History:?knee surge ry X4 elbow sx interstem in back carpal tunnel release mass removal from back breast surgery * Hospitalization/Major Diagno stic Procedure:?Denies Past Hospitalization * Family History:?Mother: dece ased, cancer, kidney/liver disease.?Maternal Grand Mother: stroke.?Maternal aunt: diabetes, arthritis, hypertension.?Maternal uncle: hypertension.? * Social History:?Tobacco Use:?Tobacco Use/Smoking?Are you a:?light tobacco smoker ?Additional Findings: Tobacco Non-User?Current non-smoker ?Tobacco use other than smoking?Are you an other tobacco user??No ???Drugs/Alcohol:?Drugs?Have you used drugs other than those for medical reasons in the past 12 months??No ?Alcohol Screen?Did you have a drink containing alcohol in the past year??Yes ?Points?0 ?Interpretation?Negative ???Miscellaneous:?no Caffeine. ?Children: yes. ?no Exercise, occassionally , walking. ?Marital status: single. 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 * Medications:?TakingSEROquel DayVigo 10 MG Tablet 1 tablet at bedtime Orally Once a dayAtivan Prevacid 30 MG Capsule Delayed Release 1 capsule Orally as neededWellbutrin XL 300 MG Tablet Extended Release 24 Hour 1 tablet in the morning Orally Once a dayTaking SEROquel Taking DayVigo 10 MG Tablet 1 tablet at bedtime Orally Once a dayTaking Ativan Taking Prevacid 30 MG Capsule Delayed Release 1 capsule Orally as neededTaking Wellbutrin XL 300 MG Tablet Extended Release 24 Hour 1 tablet in the morning Orally Once a dayNot-Taking/PRNPhysical Therapy . . . . 2- 3x/weekNaproxen Medrol gianni 4mg Tablet Therapy Pack as directed orally as directedtraMADol HCl 50 MG Tablet 1 tablet as needed Orally Every 4-6 hours as needed for painKlonoPIN Work Note . . . . Patient off of work today 07/09/19Effexor Medication List reviewed and reconciled with the patientNot-Taking/PRN Physical Therapy . . . . 2-3x/weekNot-Taking/PRN Naproxen Not-Taking/PRN Medrol gianni 4mg Tablet Therapy Pack as directed orally as directedNot-Taking/PRN traMADol HCl 50 MG Tablet 1 tablet as needed Orally Every 4-6 hours as needed for painNot-Taking/PRN KlonoPIN Not-Taking/PRN Work Note . . . . Patient off of work today 07/09/19Not-Taking/PRN Effexor Medication List reviewed and reconciled with the patient * Allergies:?N.K.D.A.yes[Aller gies Verified] Objective: * Vitals:?Ht: 5ft6.5in, Wt:223 , BMI:35.45, Shoe size: 8.5, BP:130/78 mm Hg, Ht-cm: 168.91 cm, Wt-k.15 kg. * Examination: ???Heel Pain: ?INSPECTION:? Pain on Palpation to Plantar Fascia med. and central bands, intrinsic musc.,LEFT foot, No pain: posterior/superior heel, achilles bursa/tendon, sinus tarsi, peroneals, or with lateral heel compression; no limited STJ ROM, calor, or ecchymosis.?Orthopedic: ?MUSCLE STRENGTH:?5/5 all groups in a symmetrical fashion, B/L.?FOOT MORPHOLOGY:? Pes Planus structure, Decreased Ankle joint dorsiflexion ROM, knee extended.?TENDONITIS:?No , Pain on palpation, inflammation, and fusiform swelling to , Posterior Tibial Tendon, pt able to do heel rise without pain.?X-Rays - IMAGING REPORT: ?Clinical Indication(s):? Evaluate for Fracture, Evaluate Biomechanical Deformity.?Views:? 3 views of Foot, LAT, LO, MO, LEFT.?Findings:? normal bone and soft tissue density consistent for patients age and sex, navicular/cuneiform plantar subluxation with anterior cyma line, positive infra-calcaneal exostosis, no coalitions identified.?Foot structure:? reveals excess pronation with, anterior break in cyme line, increased talar declination, decreased calcaneal inclination.?Fracture:?Negative fractures identified.?Neurological: ?SENSORY:?Neurological exam reveals intact sensorium, pain sensation normal, vibration sensation intact, pinprick sensation is normal in the lower extremities, Pt denies, anesthesia, burning, paresthesia, tingling, B/L.?General Examination: ?GENERAL APPEARANCE:?Reveals a pleasant, alert, well nourished, well- developed, well hydrated individual, who demonstrates proper attention to hygiene/body habitus, and is in no acute distress, Pt serves as own historian for office visit today.?ORIENTED:?person, place, and time.?Vascular: ?DP PULSES:?3/4, B/L.?PT PULSES:?3/4, B/L.?CAPILLARY FILL TIME:?immediate, all digits, B/L.?SKIN TEMPERTURE GRADIENT OF THE LOWER EXTERMITIES:?normal, warm to cool, proximal to distal, B/L, B/L.? Assessment: * Assessment: 1.?Pain in left foot - M79.6 72?2.?Plantar fasciitis of left foot - M72.2 (Primary), Acute problem, Complicated w/ Multiple Tx Options(4),Dx New problem, Prognosis Uncertain (4)?3. Calcaneal spur, left foot - M77.32?4.?Interstitial myositis of left foot - M60.172?5.?Bursitis of left foot - M77.52? Plan: * Treatment: 2.?Pain in left foot?Imaging: X ray : Foot, left 3V * Procedure Codes:?29341 X-RAY EXAM OF LEFT FOOT 3V, Modifiers: 26 , LT * Preventive Medicine:? ??Counseling:?Discussion:?-14: Office or other outpatient visit for the evaluation and management of an established patient, which required a medically appropriate history and/or examination and MODERATE level of DECISION MAKING for: 1 OR MORE CHRONIC PROBLEM(S) THATS WORSENING, 2 STABLE CHRONIC PROBLEMS, A NEWLY DIAGNOSED PROBLEM WITH UNCERTAIN PROGNOSIS, AN ACUTE COMPLICATED INJURY WITH MULTIPLE TREATMENT OPTIONS, OR AN ACUTE PROBLEM WITH ACCOMPANYING SYSTEMIC SYMPTOMS, THAT POSE(S) A MODERATE RISK OF MORBIDITY. THIS CONDITION MAY ALSO INCLUDE RX DRUG MANAGEMENT, OR A DECISON FOR MINOR SURGERY. The visit on the day of the encounter encompassed interpreting the data and educating the patient as to the nature of their condition, treatment options available according to their individual PMH, meds, allergies, and overall health/living conditions, as well as any potential risks or complications that may occur from a failure to adhere to, and participate in, the recommended course of therapy. The discussion included a complete verbal, and/or written explanation of the examination results, any x-rays taken, the proposed diagnosis, and outline of the treatment plan. A schedule for future care needs was also explained. The patient verbalized an understanding of the instructions at this time and agreed to be an active participant in their treatment. If the patient should think of any questions or concerns after the visit, I have encouraged the patient to call the office.?Heel pain:?FASCIITIS: I explained to the patient the possible etiologies of Plantar Fasciitis including foot type/shoegear/activity level/exercise routine and the risks/benefits of all the different treatment options for heel pain including: No treatment at all, Rest, Ice, NSAIDs(only if well tolerated after meals), New/supportive Shoegear, Strappings and Tapings, Stretching exercises, Deep Tissue Massage, Heel cups/cushions, Arch support/shoe inserts, Custom orthoses, Topical analgesics including Aspercream/Voltaren gel, Night splint AFO for am stiffness, Cortisone injection therapy, Cast boot with crutches/cane/or walker for assisted ambulation, Physical Therapy, EPAT/ESWT, Interfil injection therapy, as well as surgical Raccoon/Endoscopic Fasciitomy surgical procedures if needed. Recommendations were made to limit barefoot walking, eliminate wearing nonsupportive shoegear (i.e. flip-flops or sandals, or a shoe with an easily bendable, foldable, or twistable sole) and wear shoegear with a good solid sole, a supportive arch, and plenty of room for an insert/orthotic if necessary. If wearing sandals was required by the patient, we recommended orthopedic sandals such as Orthoheel or Birkenstock even while in the home. If the patient wore heels in the past, we recommended they continue, but eliminate the use of flats. The advantages and disadvantages of each option were discussed and the patients questions re: types of shoegear, custom vs prefabricated inserts, activity level, PO vs Topical medications (and their respective potential complications/drug interactions/side effects), and consistency in home treatment regimens for optimal success were answered to their satisfaction. Literature detailing plantar fasciitis and the various treatment options were dispensed and reviewed.?P.R.I.C.E.:?The patient was counseled on the use of P.R.I.C.E. and NSAIDS (if well tolerated) to aid in the recovery from their painful condition.?Shoe Gear Counseling:?The patient and I reviewed the types of shoes they should be wearing. My recommendation included obtaining a well-fitted shoe with a good supportive, non-foldable nor twistable sole, plenty of toe/room for the forefoot, and proper arch support. Based on todays examination, I recommended the patient look for new shoes, by having their feet professionally measured. We discussed that generally the best time of the day for a shoe fitting is the afternoon. Different shoes types and brands to best match the patients occupation and vocation were discussed. Specific brand selection will be up to the patient, their individual foot condition/deformities, and fit. The patient and I reviewed the standard new shoe break in period by wearing them for a few hours a day while checking for redness or sores as wear time is increased. The patient verbally confirmed to understanding the information discussed.?Stretching Exercises:?Stretching and deep tissue massage exercises for the patients injury/diagnosis were discussed and demonstrated, handouts were dispensed.?X-rays:?Discussed and reviewed the X-rays with the patient. We discussed how the findings relate to the patients symptoms/complaints. Answered any and all questions..? * Follow Up:?6 Weeks * Images: * Sign off status: Completed true * Provider:?Palmira Watts, JODY Date:?09/2023 Generated for Samaria clark/[facility]/Elijah on:?06/05/2024 08:03 AM EST History and Physical Notes * HPI (History of Present Illness) Category Sub-Category Detail Notes Category Not es Heel pain Duration: several weeks Nature: aching , tenderness Location: Arch, LEFT Aggravated: standing, walking, w alking first thing in the morning/after rest Course: worse Treatments: rest/alter normal da darlyn activity , change in shoes Examination Category Sub-Category Detail Notes Category Not es Neurological SENSORY: Neurological exa m reveals intact sensorium, pain sensation normal, vibration sensation intact, pinprick sensation is normal in the lower extremities, Pt denies, anesthesia, burning, paresthesia, tingling, B/L Orthopedic FOOT MORPHOLOGY: Pes Planus stru cture, Decreased Ankle joint dorsiflexion ROM, knee extended TENDONITIS: No , Pain on palpati on, inflammation, and fusiform swelling to , Posterior Tibial Tendon, pt able to do heel rise without pain MUSCLE STRENGTH: 5/5 all groups in a symmetrical fashion, B/L General Examination GENERAL APPEARANCE: Reveals a pleasant, alert, well nourished, well-developed, well hydrated individual, who demonstrates proper attention to hygiene/body habitus, and is in no acute distress, Pt serves as own historian for office visit today ORIENTED: person, place, and t ryann Vascular DP PULSES(B): 3/4, B/L PT PULSES(B): 3/4, B/L CAPILLARY FILL TIME: immediate, all digi ts, B/L TEMPERTURE GRADIENT(C): normal, warm to cool, proximal to distal, B/L, B/L X-Rays - IMAGING REPORT Findings: normal b one and soft tissue density consistent for patients age and sex, navicular/cuneiform plantar subluxation with anterior cyma line, positive infra-calcaneal exostosis, no coalitions identified Fracture: Negative fractures i dentified Foot structure: reveals excess prona tion with, anterior break in cyme line, increased talar declination, decreased calcaneal inclination Views: 3 views of Foot, LAT , LO, MO, LEFT Clinical Indication(s): Evaluate for Fra cture, Evaluate Biomechanical Deformity Heel Pain INSPECTION: Pain on Palpatio n to Plantar Fascia med. and central bands, intrinsic musc.,LEFT foot, No pain: posterior/superior heel, achilles bursa/tendon, sinus tarsi, peroneals, or with lateral heel compression; no limited STJ ROM, calor, or ecchymosis
--- OUTSIDE RECORDS SUMMARY | 2024-06-05 08:03 | XMS_ITS | Continuity of Care Document ---
Author Organization [facility] Address [address] [facility] [place] [address]- Care Team Providers Care Knowledge Management Consultant Name Role Phone Lindsay Otto MD Primary Care Physician [phone] Encounter 05/03/24 - 05/10/24 [facility] [address], [address] [place] [address]- Attending Physician: Lindsay Otto MD Admitting Physician: Lindsay Otto MD Referring Physician: Lindsay Otto MD Encounter Type: OutPatient One Time Allergies, Adverse Reactions, Alerts No Known Medication Allergies Immunizations Given and Recorded Vaccine Date Status Refusal Reason zoster vaccine, inactivated 11/09/21 Recorded SARS-CoV-2 (COVID-19) mRNA-1273 vaccine 01/27/21 R ecorded SARS-CoV-2 (COVID-19) mRNA-1273 vaccine 12/31/20 R ecorded tetanus/diphtheria/pertussis, acel(Tdap) 03/11/13 Recorded Medications Ativan 2 mg oral tablet 1 tablet = 2 mg, By Mouth, PRN as needed for anxiety, 0 Refills, Maintenance, 08/19/20 4:26:00 PM EST, Partial fill upon patient request if the prescription is for a schedule II opioid drug. Start Date: 08/19/20 Status: Ordered Repeat number: 1 EC Naprosyn 500 mg oral enteric coated tablet 1 tablet = 500 mg, By Mouth, PRN Pain , Mild, 0 Refills, Maintenance, 04/13/22 2:19:00 PM EDT, Partial fill upon patient request if the prescription is for a schedule II opioid drug. Start Date: 04/13/22 Status: Ordered Repeat number: 1 gabapentin 100 mg oral capsule 200 mg, 2, capsule, By Mouth, 3 times a day, # 42 capsule, Refills 0, Tot. Refills 0, Maintenance, 05/06/22 5:05:00 AM EST, Route to Pharmacy Electronically, [facility]/pharmacy #[id number], Partial fill upon patient request if the prescription is for a schedule II opioid drug., 167.64, cm, 04/17/22 8:33:00 EDT, Height, 109.4, kg, 05/05/22 20:26:00 EST, Dry Weight Start Date: 05/06/22 Stop Date: 05/13/22 Status: Ordered Quantity: 42.0 Unit: capsule Repeat number: 1 HydrOXYzine 50 mg-100mg, By Mouth, Daily at bedtime, 0 Refills, Maintenance, 04/13/22 2:11:00 PM EDT, Partial fill upon patient request if the prescription is for a schedule II opioid drug. Start Date: 04/13/22 Status: Ordered Repeat number: 1 Misc Rx Calcium 1000mg; Zinc 15mg; Magnesium 400mg; Vitamin D3 600iu, By Mouth, Daily, Refills 0, Maintenance, 04/13/22 2:16:00 PM EDT, Supply Start Date: 04/13/22 Status: Ordered Repeat number: 1 Misc Rx Gabapentin 6%; Dicoflenac 3%; Baclofen 2%; Bupivicaine 1%, Topically, 3 times a day, Refills 0, Maintenance, 04/13/22 2:23:00 PM EDT, Supply Start Date: 04/13/22 Status: Ordered Repeat number: 1 Multivitamin Daily, 0 Refills, Maintenance, 05/24/21 1:26:00 PM EST, Partial fill upon patient request if the prescription is for a schedule II opioid drug. Start Date: 05/24/21 Status: Ordered Repeat number: 1 Prevacid 30 mg oral enteric coated capsule 1 capsule = 30 mg, By Mouth, Daily, 0 Refills, Maintenance, 08/21/17 7:52:50 AM EST Start Date: 08/21/17 Status: Ordered Repeat number: 1 Vitamin water Vitamin water, Refills 0, Maintenance, 09/11/20 3:51:00 PM EDT, Supply Start Date: 09/11/20 Status: Ordered Repeat number: 1 Wellbutrin XL 300 mg/24 hours oral tablet, extended release See Instructions, 1.5 tablet By Mouth Daily 90 days, # 135 tablet, 1 Refills, Maintenance, 09/21/17 3:43:15 PM EDT, ER Tablet, [facility]/pharmacy #[id number] Start Date: 09/21/17 Status: Ordered Quantity: 135.0 Unit: tablet Repeat number: 2 zaleplon 10 mg oral capsule 1 capsule = 10 mg, By Mouth, Daily at bedtime, 0 Refills, Maintenance, 04/13/22 2:12:00 PM EDT, Partial fill upon patient request if the prescription is for a schedule II opioid drug. Start Date: 04/13/22 Status: Ordered Repeat number: 1 Problem List Condition Confirmation Course Effective Dates Status Health St atus Informant Anxiety Confirmed Active Binge eating disorder, mild, in partial remission Confirmed Active Acid reflux Confirmed Active Insomnia Confirmed Active Depression with anxiety Confirmed Active VON on CPAP Confirmed Active Psoriasis Confirmed Active Severe obesity Confirmed Active Fatty liver Confirmed Active Urinary incontinence Confirmed Active Results Radiology Reports * Exam Date Time Procedure Performing Provider Status 05/03/24 10:11 AM MM Digital Mammo Screening Stacey Garcia; Alyse (Verified) Notes: (MM Digital Mammo Screening) Reason For Exam: Z12.31 SCREEN RESULT: MM Digital Mammo Screening PROCEDURE: MM Digital Mammo Screening INDICATION: Screening for breast cancer. COMPARISON: Multiple priors, most recent 05/02/2023 TECHNIQUE: Full-field digital CC and MLO 3D tomosynthesis images of both breasts were acquired. Computer-aided detection (CAD) was utilized in the interpretation of this study. DENSITY: There are scattered areas of fibroglandular density. FINDINGS: No suspicious masses, suspicious microcalcifications, or areas of architectural distortion are seen in either breast to suggest malignancy. IMPRESSION: No mammographic evidence of malignancy. RECOMMENDATION: Annual mammographic screening BI-RADS: 1 (Negative) Lay letter mailed to patient WSN: [id number] Ordering Physician: Lindsay Otto MD Dictated By: Alonzo Goodwin MD Dictated Date/Time: 05/03/24 1:36 pm Reviewed By: Alonzo Goodwin MD Signed By: Alonzo Goodwin MD Signed Date/Time: 05/03/24 1:36 pm Transcribed By: CARLOS ENRIQUE Header Setup Operator Date/Time: 05/03/24 1:33 pm Birads: Social History Social History Type Response Smoking Status Former smoker, quit more than 30 days ago entered on: 10/27/20 Sex Sex Representation Female (finding) Implantable Device List Procedure Provider Procedure Date Device Type Site Unknown Unknown 05/26/12 Unknown Back Device Identifier Serial Number Lot or Batch Number Manufacturing Date Expiration Date Distinct Identification Code MRI Safety Implantable Status Assigning Authority Unknown Unknown Unknown Unknown Unknown Unknown Unknown Active Unk nown Procedure Provider Procedure Date Device Type Site Unknown Unknown 01/24/07 Unknown Breast Left Device Identifier Serial Number Lot or Batch Number Manufacturing Date Expiration Date Distinct Identification Code MRI Safety Implantable Status Assigning Authority Unknown Unknown Unknown Unknown Unknown Unknown Unknown Active Unk nown Unknown Unknown Unknown Unknown Unknown Unknown Unknown Active Unk nown Patient Care team information Care Team Personnel Name: Stacey Hernandez RN Position: [facility] RN Member Role: Primary Care Nurse Name: Aida Sanchez RN Position: [facility] RN Member Role: Primary Care Nurse Name: Lindsay Otto MD Position: [facility] Outreach Member Role: PCP Address: [address] [place] [address] Telecom: Care Team Related Persons Name: SIMON GUERRIER Name: TONI INIGUEZ Insurance Providers Guarantor name: JAX GIBSON Health Plan Information #: 1 Payer: [employer] Member Number: [id number] Policy Number: NA Group Number: [id number] Health Plan Information #: 2 Payer: [employer] Member Number: [id number] Policy Number: NA Group Number: [id number]
--- OUTSIDE RECORDS SUMMARY | 2024-06-05 08:04 | XMS_ITS | Patient Health Record ---
Author Organization [facility]ars[facility] Address [address] [place] [address] Care Team Providers Care French Teacher Name Role Phone Lindsay Otto Primary Care Provider Unavailab Palmira Cox Unavailable [phone] Allergies No Known Allergies Reason For Referral No Information Medications Medication SIG (Take, Route, Frequency, Duration) Notes Start Date End Date Status Medrol gianni 4mg as directed orally a s directed for 6 days 11/28/2023 Active DayVigo 10 MG 1 tablet at bedtime Orally Once a day Active Ativan Active Prevacid 30 MG 1 capsule Orally as needed Active Wellbutrin XL 300 MG 1 tablet in the mor ebonie Orally Once a day for 30 days Active SEROquel Active KlonoPIN Not-Taking Work Note . . . Patient off of w ork today 07/09/19 07/09/2019 Not-Taking Effexor Not-Taking Physical Therapy . . . 2-3x/week for 3-4 weeks 02/2022 Not-Taking Naproxen Not-Taking Medrol gianni 4mg as directed orally a s directed for 6 days 02/01/2022 Not-Taking traMADol HCl 50 MG 1 tablet as needed O rally Every 4-6 hours as needed for pain for 7 days 02/10/2022 Not-Taking Social History Tobacco Use: Social History Observation [...] W/U Status Risk Notes Problem Interstitial myositis (35695367) Interstitial myositis of left foot (M60.172) Active confirmed Vital Signs Blood pressure diastolic 78 mm Hg 11/28/2023 Height 5ft6.5in in 11/28/2023 Blood pressure systolic 130 mm Hg 11/28/2023 Weight 223 lbs 11/28/2023 BMI 35.45 kg/m2 11/28/2023 Encounters Encounter Location Date Provider Diagnosis [facility] [address] [address] [place] [address] 11/28/2023 Palmira Perica Pain in left foot [...] foot (ICD-10 - M77.52) Plan Of Treatment Pending Test Test Name Order Date X ray : Foot, left 3V 03/16/2022 X ray : Foot, left 3V 11/28/2023 X ray : Foot, right 3V 01/21/2022 [id number] TENDON SHEATH/LIGAMENT 0 01/21/2022 Insurance Providers Payer Name Payer Address Payer Phone Subscriber Number Group Number Insured Name Patient Relationship to Insured Coverage Start Date Coverage End Date Arabella Montoya [id number] [employer] [place] [phone] [id number] Swathi Garcia Self - patient is the insured 9 Medical (General) History Medical History History ICD Code Anxiety Depression Gall bladder problems Headaches/Migraines Psoriasis/eczema Reflux ( GERD) Chicken pox Surgical History Surgery Date(Month/Year) knee surgery X4 elbow sx interstem in back carpal tunnel release mass removal from back breast surgery Hospitalization History Reason Date(Month/Year)
--- OUTSIDE RECORDS SUMMARY | 2024-06-05 08:04 | XMS_ITS | Data Portability ---
Author Organization [facility] Address [address] [place] [id number] Assessment Encounter Date Assessment Date Assessment LastModified by Organization Details LastModified Time 11/10/2022 11/10/2022 Pt with obese status according to BMI and food- and nutrition-relate d knowledge deficits related to emotional eating, strong cravings for fast food and a sedentary job as evidenced by BMI = 33, s/p gastric surgery, inconsistent daily food intake with a focus on food supplements per PQ, 24 hour recall and reports of less daily physical activity. Intervention: 1) Meal planning 2) Intuitive eating education 3) Exercise programming Monitoring/Evalu ation: 1) 24 hour recall 2) Physical activity records Pt expressed understanding of the education provided. Pt felt confident that she could make gradual, sustainable changes. Scheduled patient for follow-up in 2 weeks. [email or web address] [email or web address] [phone] Not available 11/10/2022 09:40:42 11/25/2022 11/25/2022 Pt with obese status according to BMI and food- and nutrition-relate d knowledge deficits related to emotional eating, strong cravings for fast food and a sedentary job as evidenced by BMI = 33, s/p gastric surgery, inconsistent daily food intake with a focus on food supplements per PQ, 24 hour recall and reports of less daily physical activity. Intervention: 1) Meal planning 2) Intuitive eating education 3) Exercise programming Monitoring/Evalu ation: 1) 24 hour recall 2) Physical activity records Pt expressed understanding of the education provided. Pt felt confident that she could make gradual, sustainable changes. Scheduled patient for follow-up in 2 weeks. [email or web address] [phone] 11/25/22: trouble with sleep since late 30's; goes bed 7:30 pm, but tosses and turns and goes back and forth between watching TV and surfing web; wakes up between 4-6 am; takes melatonin, ativan and Dayvigo at night for sleep; also concerned about short term memory issues; 63 lb loss since gastric sleeve surgery 04/15/22; has walking desk and bike at home plus 5 lb weights and outdoor pool at her complex in the summer; also access to the App[employer]et ; Uses FitBit to track her steps; [employer] value stream coach asked her to join; Early 1999 had two ACL surgeries on right knee (Hamstring/cadae latasha - used CPM after surgery); planning to get knee surgery; one from [place] plans to come and live with her in January and another at a later date; sits a lot during the day; deals with depression and knows moving and getting outside are important; loses motivation and gets frustrated easily; [employer] offers WellBeats which she has the nelia for and Rise and Shine stretch; walking about 2 miles and does better when she wears her knee brace [email or web address] Not available 11/25/2022 12:01:59 12/16/2022 12/16/2022 Pt with obese status according to BMI and food- and nutrition-relate d knowledge deficits related to emotional eating, strong cravings for fast food and a sedentary job as evidenced by BMI = 33, s/p gastric surgery, inconsistent daily food intake with a focus on food supplements per PQ, 24 hour recall and reports of less daily physical activity. Intervention: 1) Meal planning 2) Intuitive eating education 3) Exercise programming Monitoring/Evalu ation: 1) 24 hour recall 2) Physical activity records Pt expressed understanding of the education provided. Pt felt confident that she could make gradual, sustainable changes. Scheduled patient for follow-up in 2 weeks. [email or web address] [phone] 11/25/22: trouble with sleep since late 30's; goes bed 7:30 pm, but tosses and turns and goes back and forth between watching TV and surfing web; wakes up between 4-6 am; takes melatonin, ativan and Dayvigo at night for sleep; also concerned about short term memory issues; 63 lb loss since gastric sleeve surgery 04/15/22; has walking desk and bike at home plus 5 lb weights and outdoor pool at her complex in the summer; also access to the App[employer] ; Uses FitBit to track her steps; [employer] value stream coach asked her to join; Early 1999 had two ACL surgeries on right knee (Hamstring/cadae latasha - used CPM after surgery); planning to get knee surgery; one from [place] plans to come and live with her in January and another at a later date; sits a lot during the day; deals with depression and knows moving and getting outside are important; loses motivation and gets frustrated easily; [employer] offers WellBeats which she has the nelia for and Rise and Shine stretch; walking about 2 miles and does better when she wears her knee brace Not available 12/16/2022 10:04:01 Plan of Treatment Reminders Order Date Submit Date Provider Last Modified By Organization Details Last Modified Time Details Appointments None record ed. Lab None record ed. Referral None record ed. Procedures None record ed. Surgeries None record ed. Imaging None record ed. Medication Orders None record ed. Patient TargetsNo targets recorded. Patient Instructions Encounter Date Encounter Id Patient Instructions Last Modified By Organization Details Last Modified Time 11/10/2022 [id number] Jese goodman to meet you today. Congratulations on your recent weight loss success. I love your attitude and thought process when it comes to weight loss: gradual and a realistic goal of 190 lb. Your approach is sustainable and SMART. I do think we can definitely make some very beneficial changes to your diet and physical activity behaviors, but maybe even more importantly, your mental and emotional approach to food, fitness and life's challenges that can have a huge impact on your overall wellness and life satisfaction. Going forward, these are some thoughts: Intuitive Eating We briefly discussed the concept of intuitive eating (IE) which I think is a no-spinning machine tender for you at this point in your weight loss journey. I will send you a link to the original IE website and a brief description of the 10 Intuitive Eating Principles that the textbook and workbook are based on. After reading the basic concept of IE, if it sounds interesting and appropriate for you, I highly suggest investing in these books since writing notes in the textbook and workbook enhances the whole learning experience and the transition to a new way of thinking about food and exercise. If interested, I have sent an email with the links to the 4th edition of the textbook: Intuitive Eating: A Revolutionary Anti-Diet Approach Paperback and the workbook The Intuitive Eating Workbook: Ten Principles for Nourishing a Healthy Relationship with Food. We can talk through the workbook exercises one principle at a time. As we discussed, intuitive eating should really be called intuitive living since the concepts covered in the book and the workbook can be applied to all areas of life. IE helps combat emotional eating and improves one's relationship with food. We can discuss this more at our next visit and decide if this should be part of our sessions. Flow Studio Nelia Let's definitely go through the Flow Studio nelia since it can help ALOT with meal planning and the program generates a grocery list for you. The nelia will help you pre-prep meals so the end of a long workday is more relaxing, especially when you are trying to get a workout, do errands, etc. It will also help you to have healthy food items around for lunch and snacks. If you have a chance, open the nelia and complete the Nutriquiz so we can review your results at your next visit. You could also keep a food record with portions so I can get a better idea of your meal patterns. I am not into tracking, but initially, the information may be helpful so we can pinpoint where changes may be helpful. Also, if you are interested, you can share your screen during our next visit and we can go through the bells and whistles of the nelia and actually meal plan using the nelia. Natural and Intentional Movement We did not discuss your current movement/fitness routine. This will be a really important part of overall wellness from a physical as well as emotional/mental health perspective. My background is in nutrition and exercise physiology, and I really feel that natural and planned movement is so important!! Short and Skilled Nursing Goals I would love to establish short and detention goals. Start thinking about what you want these goals to look like and we can finalize them at one of our future visits. Ideally, at the end of each visit we will make goals for the days/weeks between our visits. Future Appointments I made two appointments for you: November 25, and December 09 at 8 am. I cannot meet in the morning on December 23, but can meet later in the day or on another day. We can plan out future appointments on November 25. I am very excited to be part of your team as you progress through your wellness journey. Let me know if you have any questions between now and our next visit. See you November 25. Have a nice weekend. With a Smile Iris Jean, MS RD LDN CSSD [email or web address] Not available 11/10/2022 11:44:20 11/25/2022 [id number] Ca Swathi berumen great meeting - I hope you agree!! Below are the items we discussed today. SUPPLEMENT ASSESSMENT After discussing the supplements you are currently taking, I took some tI evaluate your current supplement regimen (See attached) and came to the following conclusion: I recommend discontinuing (1) [place] (Calcium, Magnesium and vitamin D) and (2) Nature? s Bounty Hair, Skin and Nail I recommend continuing: (1) Procare Health Multi ? Special 45 and (2) Bariatric Pal, but take these two at least 2 hours apart since the iron and calcium negatively impact each other in terms of absorption. I recommend changing your Nature? s Care probiotic to one with more strains of probiotics, not just one, and better overall ingredients. I have attached a screenshot of the probiotic I recommend for women. FITNESS GOALS I am a huge believer in the benefits of exercise for everyone, but especially as we age and lose muscle. Exercise is also SUPER important for you since you have list a lot of weight recently and rapid weight loss can lead to greater muscle loss. At the end of our session you mentioned the following goals: 1) Walk 6 times over the next two weeks (~3 times per week). 2) Go in the pool two times over the next two weeks (~1 time per week). If the weather does not cooperate, dust off your bike and ride it instead. I have attached some ideas for exercises in the pool that will get your heart rate up, and work on flexibility, balance (no Thor Biden moments ). Here are some pool [employer] workouts:which you can watch for some ideas or bring your phone to the pool and follow along. Can you do one or two of these workouts before we next meet? FIIT with Debbie: [email or web address] [email or web address] POPsugar Fitness: https://www.CriticalMetricsube .com/watch?v=hLntTq J0WFg OR https://www.CriticalMetricsube .com/watch?v=N-SBQa RsalE OR https://www.CriticalMetricsube .com/watch?v=qBy0xZ PoWzM Neha Hutchisoner: https://Onestop Internet.be/tx R9DYihhN6 Muscle conditioning: https://www.CriticalMetricsube .com/watch?v=cuUsIj WCr28 Mor Movement: https://www.CriticalMetricsube .com/@MorMovement. Here's an example of one of the workouts: https://www.CriticalMetricsube .com/watch?v=bAaREL 8vC4I If you don't want to get in the pool, try some of the 10 minute workouts I attached or get on your bike. Just 10 minutes. Last, but not least, I included a stretching guide, including visuals of stretching exercises. Stretching will help SOOOOOO much with relieving knee, back and joint pain. MEAL PLANNING We did not have a chance today, but let's definitely go through the Flow Studio nelia since it can help ALOT with meal planning and the program generates a grocery list for you. The nelia will help you pre-prep meals so the end of a long workday is more relaxing, especially when you are trying to get a workout, do errands, etc. It will also help you to have healthy food items around for lunch and snacks. If you have a chance, open the nelia and complete the Nutriquiz so we can review your results at your next visit. You could also keep a food record with portions so I can get a better idea of your meal patterns. I am not into tracking, but initially, the information may be helpful so we can pinpoint where changes may be helpful. Also, if you are interested, you can share your screen during our next visit and we can go through the bells and whistles of the nelia and actually meal plan using the nelia. Overall, I would love to get more real foods into your diet while meeting your protein and nutrient needs. Let me know if you have any questions. Have a nice weekend and keep up the good work!! Iris [email or web address] Not available 11/25/2022 17:18:19 12/16/2022 [id number] Cookie Ruffin Great meeting yesterday. Below I will summarize our meeting: Vitamin/Mineral/Sup plement Plan 1) Continue the Procare Bariatric 45 Multivitamin for life. 2) Finish your Nature's Bounty Acidophilus probiotic and then switch to Garden of Life Formulated Once Daily Woman? s Probiotic for a more well-rounded intake of various probiotic strains. It's much better to get a number of different probiotic strains since they all improve our health in different ways. The one you are currently taking only provides one strain and therefore provides limited benefits. 3) Purchase 500-600 mg calcium citrate tablets. Take one twice per day. Make sure that you only have to take one to get the 500-600 mg amount. Also, as you are already doing, take the Bariatric 45 multi and calcium at least 2-3 hours apart. Dreaded Constipation The [facility] Daily fiber pills are somewhat useless since they only give you 2 g of soluble fiber in 5 pills. That's a lot of pills for little fiber. Women need 25 grams of fiber per day. To help with constipation, you need 7 grams of soluble fiber per day. The fiber will also help with weight loss and cholesterol levels. Let's start smoothies and add Benefiber (3 g soluble fiber per 2 tsp) to the smoothies as well as fruits, flaxseeds, veggies to further increase your fiber intake. See below for ideal smoothie concoctions. One final note on constipation, aim to keep up your fluid intake. I do wonder if the sweeteners in the [employer] version of Crystal light are interfering with your sugar cravings or contributing to constipation. Could you try water with a splash of 100% juice or a squeeze of lemon or [place]? Smoothies I am really excited to have you start experimenting with smoothies. This will increase your nutrient intake, fiber intake, protein intake, vitamin and mineral intake, etc. We can kill many birds with one stone. You will get soooooo much more nutritional value that the Premier Protein Shakes!! When we go over the Flow Studio nelia they have a bunch of smoothie recipes so you can add variety over time. I have attached a bunch of resources that will help you learn more about smoothies. Here are some smoothie ingredients to consider: Liquids Chocolate milk or chocolate almond milk Cold coffee or tea Pineapple or meg juice Oat, almond, soy or coconut milk. Kombucha or kefir Smoothie Fruits Use frozen avocados or regular or frozen bananas for almost all your smoothies! It makes them rich and creamy. Apples (not peeled) or oranges (peeled) Berries ? they are full of antioxidants and fibre! (this Blueberry Smoothie is one of our favorite marquez smoothies!) Pineapple, meg, kiwi ? these are fun tropical flavors (they pair well with coconut milk ? like in this fun Tropical Smoothie!) Peaches, cherries or other stone fruits (grab a bag of frozen and skip paying the high martinez when they are out of season) Smoothie Add-In Ideas Nut [place]: give it a boost of nutrition and nutty flavor with a scoop of peanut butter, cashew butter, almond butter, or sunflower seed butter. Seeds: add in a sprinkle of flax seeds, radha seeds, or hemp hearts. Grains: add a scoop of quick oats or even cooked brown rice or quinoa. Protein: make it more filling with a scoop of your favorite protein or collagen powder. Make it creamy: Cream cheese and cottage cheese make an incredibly thick and creamy smoothie. Veggies: a handful of fresh spinach or kale, half an avocado, or even a handful of frozen cauliflower is a great way to add some extra nutrition. Cauliflower and avocado also create an extra smooth and creamy texture! Sweeteners: prefer it sweeter? Try adding a drizzle of honey, agave, pitted [place]jool dates, or simple syrup. Extracts: add a dash of vanilla, almond or maple extract to add some extra flavor. Spices and Powders: try Acai powder, jermaine powder, spirulina, cinnamon, nutmeg, you name it. This is what we discussed as a formula for an initial smoothie for YOU: 1 to 1 1/2 cup almond milk or 3/4 cup almond milk and 1/2 cup Oikos yogurt 1 tbsp flaxseeds 2 tsp benefiber 1-2 scoops vital proteins 1/2 to 1 banana or 1-2 frozen avocado halves Frozen unsweetened strawberries, black berries or mangoes Add ingredients to the dock worker: Add all of your ingredients to a high powered dock worker. Start with the liquids and then put them in order from softest to firmest. Blend: Blend until smooth, stopping to stir if needed. Adjust as needed: Check the flavor and texture, adjust as needed. For example, you may need to add more liquid to get the right consistency. It will take a bit of experimentation to find your perfect mix. NOTE: Let's start with 2 tsp of Benefiber and we can increase if necessary. You may find that including more fruits, flaxseeds, etc will reduce your episodes of constipation without the need to add more benefiber. We can also discuss adding baby spinach and other super healthy veggies going forward. Goals 1) Start experimenting with smoothies. I also sent you a handout evaluating various pre-made smoothies in the market. 2) Continue walking, but add multiple intervals of quicker walking (30 seconds to 2 minutes) to increase your heart rate. 3) Incorporate strengthening exercises twice per week either at home or in the pool. Use the resources I sent you last time. We can also discuss other online strengthening options for home. Remind me to show you Donita Jacobson or Padilla next time. Next Time 1) Determination of macros. In the meantime, aim to have some carbohydrate, protein and fat at all your meals. This will give your meals staying power. Fiber-containing, whole grain carbs will give you that initial feeling of fullness, but carbs don't last long, especially simple, refined carbs like cookies, cheez-its, etc. As we discussed, simple, refined carbohydrates make your blood sugar levels soar and then your blood sugar levels plummet soon after which will leave you feeling hungrier and lower on energy. As carbs are waning, protein kicks in and help suppress appetite-stimulatin g hormones while keeping your blood sugars on an even keel and helping maintain muscle as you lose weight. Last in line, fats, which will maximize how long the meal (or snack) keeps you pleasantly full. 2) Review of the Flow Studio nelia to help with meal planning. Good luck with your follow-up with your Bariatric MD on Monday. Looking forward to meeting December 30 at 7 am and January 13 at 8 am to continue your wellness journey. Let me know if you have any questions in the meantime. Be well!! Iris [email or web address] Not available 12/17/2022 15:03:15 Reason for Referral None Reported. Medical Equipment None Reported. Vitals Date Recorded Body weight Body mass index (BMI) Body height Provider Name and Address Organization Details Last Updated DateTime 11/10/2022 40522.62 g 33.4 kg/m2 167.[address] [facility], [place], [address], [facility] 11/10/2022 09:09:58 Date Recorded Body height Body mass index (BMI) Body weight Provider Name and Address Organization Details Last Updated DateTime 11/25/2022 167.64 cm 32.8 kg/m2 [address]885.[address] [facility], [place], [address], [facility] 11/25/2022 08:05:12 Social History Question Answer Notes LastModified by [employer] ion Details LastModified Time Are You Currently Employed? Yes [email or web address] Information not available 11/10/2022 What Is Your Occupation? [employer] Employee; Works From Home [email or web address] Information not available 11/10/2022 Do You Have Any Pets? Yes 17 Year Old Cat (80+ Human Years) [email or web address] Information not available 11/10/2022 Sex: Unknown Functional Status None recorded. Mental Status None recorded. Family History Nothing Reported. Medical History No medical history recorded. Gynecological HistoryNo gynecological history recorded. Obstetrics History GPAL:G 0 P 0 0 0 0 Past Encounters Encounter ID Performer Location Encounter Start Date Encounter Closed Date Diagnosis/Indication Diagnosis SNOMED-CT Code Diagnosis ICD10 Code [id number] [facility] [place] [address] [facility] [place] [address] 11/10/2022 07:51:05 11/10/2022 09:54:42 Diet education 26367987 Z71.[id number] [facility] [place] [address] [facility] [place] [address] 11/25/2022 07:57:36 11/25/2022 09:29:09 Diet education 22074529 Z71.[id number] [facility] [place] [address] [facility] [place] [address] 12/16/2022 09:51:26 12/16/2022 11:24:15 Diet education 89918573 Z71.3 Health Concerns Section Related Observation LastModified by Organization Detai ls LastModified Time None Recorded Concern Status LastModified by Organization Details LastModified Time None Recorded Advance Directives Directive None Recorded Payers Encounter Date Sequence Insurance Name Policy Number Policy Mckeon Covered Member ID Mckeon Member ID Guarantor Name 11/10/2022 1 [facility] [id number] Swathi Queior [id number] Swathi Queior 11/25/2022 1 [facility] [id number] Swathi Queior [id number] 1 Swathi Queior 12/16/2022 1 [facility] [id number] Swathi Queior [id number] 1 Swathi Queior Notes Date Note Type Note Provider Name and Address Organization Details Recorded Time 11/10/2022 text/html [facility]SM[facility] ADIMEReported bypatient.Anthropom etric Measurements:BMI classification: obese; usual body weight: 190; ideal body weight: 130; percentage of ideal body weight: 159 % Weight History:high weight: 266 pounds; low weight: 190 pounds; Most of adult life even when exercising 190 lb was her stable wt; right now she is fine with another 5 to 10 lb loss; has lost 59 lbs since gastric sleeve surgery on Apr 15 2022; said her goal weight should be 155-160 lb which is not realistic for her; on a gastric bypass support group and many have lost 80+ lbs, but she is okay with slow and steady; gained wt when she moved to [place] in 2017 and became less active. In [place], biked and hiked Diet Recall:breakfast notes: (5-7 am 3 egg whites occ with cheese and Premier protein shake (tries for 2 per day); occ. Keto Crunch or Fiber One cereal with Leedey milk); AM snack notes: (none); lunch notes: (Bet 11-2 pm (depends on work); Occ Premier Protein shake; 647 Low Carb Bread with turkey, cheese, lerma and mustard; tky/cheese/pickle/m ay/mustard; Kosovan yogurt - Oikos; Cuke/tomato/red onion salad with Barbadian dressing); PM snack notes: (Occ protein bars if hungry - 3 to 4 times per week; Pure Protein); dinner notes: (Bet 4-7 pm: Meatballs with janice sce, mozz cheese, broccoli and green beans; chicken; brenda; Kilbasa with red onion and keys peppers; 2 hamburger patties occ with cheese; tries to have broccoli, cauliflower and green beans which are the only veggies she likes); Met with RD in the past after bypass surgery, but did not really help; Rec 78-90 g protein; 68 oz fluid/day Fluid Intake:32 oz water x 2-3; 24 oz crystal light x 1 Appetite:fair; Not as hungry after surgery, but when she starts eating, wants to eat more due to the taste of the food, but knows she will feel terrible if she eats or drinks too much; no pasta or Big Macs since before surgery Food Allergies or Intolerances:no food allergies;aversions /dislikes:(Not a big sweets person; loves carbs, tacos, burgers, Turkmen fries; does not add salt to cooking; likes salt less than before her surgery); Drank a lot of milk in the past and a diet she joined said to stop drinking whole milk; she switched to 2% GI:no heartburn (Really bad heartburn prior to surgery; fixed her hiatal hernia);constipatio n(about 2 times per month since her surgery in March) Supplements:current ly taking dietary supplement (Premier Protein shakes and bars); currently taking vitamin supplement (Bariatric multivitamin) Social:Use the Workec nelia in the past Usual Food Intake:number of meals: per day PQ seen by RD regarding nutrition counseling for weight loss s/p gastric sleeve surgery. Pt reports wanting a better relationship with food as she continues her weight loss journey. Iris Pena, INNA [address] [facility],[address], [place], [address], [facility] - Aaron 11/10/2022 11:44:37 11/25/2022 text/html FOODSMART ADIMEReported bypatient.Anthropom etric Measurements:BMI classification: obese; usual body weight: 190; ideal body weight: 130; percentage of ideal body weight: 159 % Weight History:high weight: 266 pounds; low weight: 190 pounds; Most of adult life even when exercising 190 lb was her stable wt; right now she is fine with another 5 to 10 lb loss; has lost 59 lbs since gastric sleeve surgery on Apr 15 2022; said her goal weight should be 155-160 lb which is not realistic for her; on a gastric bypass support group and many have lost 80+ lbs, but she is okay with slow and steady; gained wt when she moved to [place] in 2016 and became less active. In [place], biked and hiked Diet Recall:breakfast notes: (5-7 am 3 egg whites occ with cheese and Premier protein shake (tries for 2 per day); occ. Keto Crunch or Fiber One cereal with Leed[place] milk; Hard boiled eggs); AM snack notes: (none); lunch notes: (Bet 11-2 pm (depends on work); Occ Premier Protein shake; 647 Low Carb Bread with turkey, cheese, lerma and mustard; tky/cheese/pickle/m ay/mustard; Kosovan yogurt - Oikos; Cuke/tomato/red onion salad with Barbadian dressing); PM snack notes: (Occ protein bars if hungry - 3 to 4 times per week; Pure Protein); dinner notes: (Bet 4-7 pm: Meatballs with janice sce, mozz cheese, broccoli and green beans; chicken; brenda; Kilbasa with red onion and keys peppers; 2 hamburger patties occ with cheese; tries to have broccoli, cauliflower and green beans which are the only veggies she likes); Met with RD in the past after bypass surgery, but did not really help; Rec 78-90 g protein; 68 oz fluid/day Fluid Intake:32 oz water x 2-3; 24 oz crystal light x 1 Appetite:fair; Not as hungry after surgery, but when she starts eating, wants to eat more due to the taste of the food, but knows she will feel terrible if she eats or drinks too much; no pasta or Big Macs since before surgery Food Allergies or Intolerances:no food allergies;aversions /dislikes:(Not a big sweets person; loves carbs, tacos, burgers, Turkmen fries; does not add salt to cooking; likes salt less than before her surgery; not big on smoothies; would rather have a premade protein shake); Drank a lot of milk in the past and a diet she joined said to stop drinking whole milk; she switched to 2% GI:no heartburn (Really bad heartburn prior to surgery; fixed her hiatal hernia);constipatio n(about 2 times per month since her surgery in March) Supplements:current ly taking dietary supplement (Premier Protein shakes and bars); currently taking vitamin supplement ([employer] Bariatric multivitamin special 45; [place] (Ca, Mg, zinc, vit D); Nature's Bounty Hair, Nail and Skin; Nature's Bounty Acidophilus Probiotic; Bariatic Pal (calcium citrate and D3); Nature's Perfect Night Melatonin (20 mg)) Social:Use the Workec nelia in the past Usual Food Intake:number of meals: per day PQ seen by RD regarding nutrition counseling for weight loss s/p gastric sleeve surgery. Pt reports wanting a better relationship with food as she continues her weight loss journey. Iris Pena RD [address] [facility],[address], [place], [address], [place] [facility] 11/25/2022 17:18:39 12/16/2022 text/html FOODSMART ADIMEReported bypatient.Anthropom etric Measurements:BMI classification: obese; usual body weight: 190; ideal body weight: 130; percentage of ideal body weight: 159 % Weight History:high weight: 266 pounds; low weight: 190 pounds; Most of adult life even when exercising 190 lb was her stable wt; right now she is fine with another 5 to 10 lb loss; has lost 59 lbs since gastric sleeve surgery on Apr 15 2022; said her goal weight should be 155-160 lb which is not realistic for her; on a gastric bypass support group and many have lost 80+ lbs, but she is okay with slow and steady; gained wt when she moved to [place] in 2017 and became less active. In [place], biked and hiked Diet Recall:breakfast notes: (5-7 am 3 egg whites occ with cheese and Premier protein shake (tries for 2 per day); occ. Keto Crunch or Fiber One cereal with Leedey milk; Hard boiled eggs); AM snack notes: (none); lunch notes: (Bet 11-2 pm (depends on work); Occ Premier Protein shake; 647 Low Carb Bread with turkey, cheese, lerma and mustard; tky/cheese/pickle/m ay/mustard; Kosovan yogurt - Oikos; Cuke/tomato/red onion salad with Barbadian dressing); PM snack notes: (Occ protein bars if hungry - 3 to 4 times per week; Pure Protein); dinner notes: (Bet 4-7 pm: Meatballs with janice sce, mozz cheese, broccoli and green beans; chicken; brenda; Kilbasa with red onion and keys peppers; 2 hamburger patties occ with cheese; tries to have broccoli, cauliflower and green beans which are the only veggies she likes); Met with RD in the past after bypass surgery, but did not really help; Rec 78-90 g protein; 68 oz fluid/day Fluid Intake:32 oz water x 2-3; 24 oz crystal light x 1 Appetite:fair; Not as hungry after surgery, but when she starts eating, wants to eat more due to the taste of the food, but knows she will feel terrible if she eats or drinks too much; no pasta or Big Macs since before surgery Food Allergies or Intolerances:no food allergies;aversions /dislikes:(Not a big sweets person; loves carbs, tacos, burgers, Turkmen fries; does not add salt to cooking; likes salt less than before her surgery; not big on smoothies; would rather have a premade protein shake); Drank a lot of milk in the past and a diet she joined said to stop drinking whole milk; she switched to 2% GI:no heartburn (Really bad heartburn prior to surgery; MD fixed her hiatal hernia);constipatio n(about 2 times per month since her surgery in March) Supplements:current ly taking dietary supplement (Premier Protein shakes and bars but sick of them; Collagen peptides - vital proteins); currently taking vitamin supplement ([employer] Bariatric multivitamin special 45; [place] (Ca, Mg, zinc, vit D); Nature's Bounty Hair, Nail and Skin; TellWise's Bounty Acidophilus Probiotic; Bariatic Pal (calcium citrate and D3); Nature's Perfect Night Melatonin (20 mg)) Social:Use the Workec nelia in the past Usual Food Intake:number of meals: per day PQ seen by RD regarding nutrition counseling for weight loss s/p gastric sleeve surgery. Pt reports wanting a better relationship with food as she continues her weight loss journey. Iris Pena RD [address] [facility],[address], [place], [address], [place] [facility] 12/17/2022 15:03:28 OBGyn Episode No OBEpisode recorded.
--- OUTSIDE RECORDS SUMMARY | 2024-06-05 08:04 | XMS_ITS | Patient Health Record ---
Author Organization [facility] Address [address] [place] [address] Care Team Providers Care Cabin Outfitter Name Role Phone Janet ROCK MSc, Johana Unavailable [phone] Allergies No Known Allergies Reason For Referral No Information Medications Medication SIG (Take, Route, Fr equency, Duration) Notes Start Date End Date Status Singulair 10 MG 1 tablet Orally Once a day for 30 day(s) Active Wellbutrin SR 150 MG 1 tablet in the mor ebonie Orally Once a day for 30 day(s) Active KlonoPIN 2 MG 1 tablet Orally Once a day Active Prevacid 30 MG 1 capsule before a m eal Orally Once a day for 30 day(s) Active Ativan 2 MG 1 tablet at bedtime as needed Orally Once a day Active Social History Alcohol screen Question Answer Notes Did you have a drink contain ing alcohol in the past year? Yes How often did you have a dri nk containing alcohol in the past year? Two to four times a month How many drinks did you have on a typical day when you were drinking in the past year? 7 to 9 How often did you have six o r more drinks on one occasion in the past year? Weekly Points 8 Interpretation Positive Drug Question Answer Notes Have you used drugs other th an those for medical reasons in the past 12 months? No Problems Problem Type SNOMED Code ICD Code Onset Dates Problem Status W/U Status Risk Notes Problem [id number] Primary osteoarthritis of right knee (M17.11) Active confirmed Plan Of Treatment No Information Medical (General) History Medical History History ICD Code asthma Anxiety disorder Depression Sleep apnea Psoriasis bladder spasm - interstimulator in Surgical History Surgery Date(Month/Year) rt knee reconstruction - men iscus repair, ACL repair - hardware removal- 4 surgeries in all beginning 2001 meniscus repair bilateral elbows
== END 2024-05-31 12:14 | disposition home or self-care (01) ==
PROVIDERS: PCP Internal Medicine; Visit Provider Physician Assistant
DX: Z96.651 Presence of right artificial knee joint (principal)
CPT/HCPCS: 99024

== ENCOUNTER 2024-05-31 11:43 | Outpatient (REF) | payer OTHER, SELFPAY | END 2024-05-31 11:44 | disposition home or self-care (01) | LOC: HO.US 11:43 | PROVIDERS: PCP Internal Medicine; Visit Provider Physician Assistant | DX: Z13.89 Encounter for screening for other disorder (principal) ==

== ENCOUNTER 2024-05-31 12:57 | Outpatient (REF) | payer OTHER, SELFPAY ==
--- NOTE | ~2024-05-31 | US_ITS ---
EXAMINATION: US TRIPLEX LOWER EXTREMITY, RIGHT CLINICAL INFORMATION: Localized swelling of the right leg COMPARISON: DVT ultrasound January 14, 2022 TECHNIQUE: Color-flow triplex imaging with spectral analysis and compression Doppler were performed on the right lower extremity. FINDINGS: Respiratory variation, normal compression and augmented flow are noted throughout the right lower extremity. The visualized common femoral vein, superficial femoral vein, profunda femoral vein, popliteal vein and midcalf peroneal and posterior tibial venous segments show no evidence of deep venous thrombosis. Sow's cyst measures 4.4 x 0.9 x 2.3 cm. US/US venous duplex LE RT IMPRESSION: No evidence of deep venous thrombosis involving the right lower extremity. Electronically signed by: Frank Tovar MD 05/31/2024 03:16 PM [facility]
== END 2024-05-31 12:58 | disposition home or self-care (01) ==
LOC: HO.US 12:57
PROVIDERS: Visit Provider Physician Assistant
DX: R22.41 Localized swelling, mass and lump, right lower limb (principal)
CPT/HCPCS: 93971

== ENCOUNTER 2024-06-17 08:35 | Outpatient (AMB) | payer OTHER, SELFPAY ==
[2024-06-17 08:38] VITALS: BMI 37.8
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
--- OUTSIDE RECORDS SUMMARY | 2024-06-17 08:39 | XMS_ITS | Data Portability ---
Author Organization [facility] Address [address] [place] [id number] Assessment Encounter Date Assessment Date Assessment LastModified [...] Scheduled patient for follow-up in 2 weeks. [email or web address] [phone] [email or web address] Not available 11/10/2022 09:40:42 11/25/2022 11/25/2022 Pt [...] Scheduled patient for follow-up in 2 weeks. 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 Congratulations [...] eating (IE) which I think is a no-decorating and assembly supervisor for you at this point in your [...] this should be part of our sessions. Pipette Nelia Let's definitely go through the Pipette nelia since it can help ALOT with [...] planned movement is so important!! Short and Nursing Home Goals I would love to establish short and assisted goals. Start thinking about what you want [...] Smile Iris Jean, MS RD LDN CSSD [email or web address] Not available 11/10/2022 11:44:20 11/25/2022 [id number] Wi Swathi berumen great meeting - I hope you agree!! Below are the items we discussed today. SUPPLEMENT ASSESSMENT After discussing the supplements you are currently taking, I took some tI evaluate your current supplement regimen (See attached) and came to the following conclusion: I recommend discontinuing (1) Bryan (Calcium, Magnesium and vitamin D) and (2) [...] Biden moments ). Here are some pool YouTCrowdTransfer workouts:which you can watch for some ideas or bring your phone to the pool and follow along. Can you do one or two of these workouts before we next meet? FIIT with Debbie: [email or web address] POPsugar Fitness: https://www.Wit studioube .com/watch?v=hLntTq J0WFg OR https://www.Wit studioube .com/watch?v=N-SBQa RsalE OR https://www.Wit studioube .com/watch?v=qBy0xZ PoWzM Neha Hutchisoner: https://Storm Bringer Studios.be/tx [email or web address] Muscle conditioning: https://www.Wit studioube .com/watch?v=cuUsIj WCr28 Mor Movement: https://www.Wit studioube .com/@MorMovement. Here's an example of one of the workouts: https://www.Wit studioube .com/watch?v=bAaREL 8vC4I If you don't want to [...] today, but let's definitely go through the Pipette nelia since it can help ALOT with [...] Iris [email or web address] Not available 11/25/2022 17:18:19 12/16/2022 [id number] Cookie Ruffin Great meeting yesterday. Below I [...] juice or a squeeze of lemon or mi'kmaq? Smoothies I am really excited to have you start experimenting with smoothies. This will increase your nutrient intake, fiber intake, protein intake, vitamin and mineral intake, etc. We can kill many birds with one stone. You will get soooooo much more nutritional value that the Premier Protein Shakes!! When we go over the Pipette nelia they have a bunch of smoothie [...] out of season) Smoothie Add-In Ideas Nut [place]: give it a boost of nutrition and [...] berries or mangoes Add ingredients to the blender helper: Add all of your ingredients to a high powered blender helper. Start with the liquids and then put [...] you pleasantly full. 2) Review of the Pipette nelia to help with meal planning. Good [...] Address Organization Details Last Updated DateTime 11/10/2022 90289.62 g 33.4 kg/m2 167.[address] [facility],[address], [place], [address], [facility] 11/10/2022 09:09:58 Date Recorded Body height Body mass index (BMI) Body weight Provider Name and Address Organization Details Last Updated DateTime 11/25/2022 167.64 cm 32.8 kg/m2 [address]57.[address] [facility],[address], [place], [address], [facility] 11/25/2022 08:05:12 Social History Question Answer Notes LastModified by LookSharp (powering InternMatch)at ion Details LastModified Time Are You Currently Employed? Yes [email or web address] Information not available 11/10/2022 What Is Your Occupation? [employer] Employee; Works From Home [email or web address] Information not available 11/10/2022 Do You Have Any Pets? Yes 17 Year Old Cat (80+ Human Years) [email or web address] Information not available 11/10/2022 Sex: Unknown Functional Status None recorded. Mental Status None recorded. Family History Nothing Reported. Medical History No medical history recorded. Gynecological HistoryNo gynecological history recorded. Obstetrics History GPAL:G 0 P 0 0 0 0 Past Encounters Encounter ID Performer Location Encounter Start Date Encounter Closed Date Diagnosis/Indication Diagnosis SNOMED-CT Code Diagnosis ICD10 Code [id number] [employer] [place] [address] [facility],[address] [place] [address] 11/10/2022 07:51:05 11/10/2022 09:54:42 Diet education 09965596 Z71.[id number] [place] [facility] [place] [address] [facility],[address] [place] [address] 11/25/2022 07:57:36 11/25/2022 09:29:09 Diet education 00644276 Z71.[id number] [facility] [address] [facility],[address] [place] [address] 12/16/2022 09:51:26 12/16/2022 11:24:15 Diet education 26993695 Z71.3 Health Concerns Section Related Observation LastModified by Organization Detai ls LastModified Time None Recorded Concern Status LastModified by Organization Details LastModified Time None Recorded Advance Directives Directive None Recorded Payers Encounter Date Sequence Insurance Name Policy Number Policy Mckeon Covered Member ID Mckeon Member ID Guarantor Name 11/10/2022 1 [facility]LY [facility] [id number] Swathi Queior [id number] 1 Swathi Queior 11/25/2022 1 [facility]MERLY [facility] [id number] Swathi Queior [id number] 1 Swathi Queior 12/16/2022 1 [facility]LY [facility] [id number] Swathi Queior [id number] 1 Swathi Queior Notes Date Note Type [...] steady; gained wt when she moved to [place] in 2017 and became less active. In [place], biked and hiked Diet Recall:breakfast notes: (5-7 am 3 egg whites occ with cheese and Premier protein shake (tries for 2 per day); occ. Keto Crunch or Fiber One cereal with [place] milk); AM snack notes: (none); lunch notes: (Bet 11-2 pm (depends on work); Occ Premier Protein shake; 647 Low Carb Bread with turkey, cheese, lerma and mustard; tky/cheese/pickle/m ay/mustard; Algerian yogurt - Oikos; Cuke/tomato/red onion salad with Nicaraguan dressing); PM snack notes: (Occ protein bars [...] big sweets person; loves carbs, tacos, burgers, Mozambican fries; does not add salt to cooking; [...] taking vitamin supplement (Bariatric multivitamin) Social:Use the Operatix nelia in the past Usual Food Intake:number of meals: per day PQ seen by RD regarding nutrition counseling for weight loss s/p gastric sleeve surgery. Pt reports wanting a better relationship with food as she continues her weight loss journey. Iris Pnea, INNA [address] [facility],[address], [place], [address], [facility] - Aaron 11/10/2022 11:44:37 11/25/2022 [...] steady; gained wt when she moved to [place] in 2016 and became less active. In [place], [place]iked Diet Recall:breakfast notes: (5-7 am 3 egg whites occ with cheese and Premier protein shake (tries for 2 per day); occ. Keto Crunch or Fiber One cereal with [place] milk; Hard boiled eggs); AM snack notes: (none); lunch notes: (Bet 11-2 pm (depends on work); Occ Premier Protein shake; 647 Low Carb Bread with turkey, cheese, lerma and mustard; tky/cheese/pickle/m ay/mustard; Algerian yogurt - Oikos; Cuke/tomato/red onion salad with Nicaraguan dressing); PM snack notes: (Occ protein bars [...] big sweets person; loves carbs, tacos, burgers, Mozambican fries; does not add salt to cooking; [...] shakes and bars); currently taking vitamin supplement (AboutOne Bariatric multivitamin special 45; Bryan (Ca, Mg, zinc, vit D); Nature's Bounty Hair, Nail and Skin; Nature's Bounty Acidophilus Probiotic; Bariatic Pal (calcium citrate and D3); Nature's Perfect Night Melatonin (20 mg)) Social:Use the Operatix nelia in the past Usual Food Intake:number of meals: per day PQ seen by RD regarding nutrition counseling for weight loss s/p gastric sleeve surgery. Pt reports wanting a better relationship with food as she continues her weight loss journey. Iris Pena RD [address] [facility],[address], [place], [address], [place] [employer] 11/25/2022 17:18:39 12/16/2022 text/html [...] steady; gained wt when she moved to [place] in 2017 and became less active. In [place], [place]iked [place] hiked Diet Recall:breakfast notes: (5-7 am 3 egg whites occ with cheese and Premier protein shake (tries for 2 per day); occ. Keto Crunch or Fiber One cereal with [place] milk; Hard boiled eggs); AM snack notes: (none); lunch notes: (Bet 11-2 pm (depends on work); Occ Premier Protein shake; 647 Low Carb Bread with turkey, cheese, lerma and mustard; tky/cheese/pickle/m ay/mustard; Algerian yogurt - Oikos; Cuke/tomato/red onion salad with Nicaraguan dressing); PM snack notes: (Occ protein bars [...] big sweets person; loves carbs, tacos, burgers, Mozambican fries; does not add salt to cooking; [...] - vital proteins); currently taking vitamin supplement (AboutOne Bariatric multivitamin special 45; Bryan (Ca, Mg, zinc, vit D); Nature's Bounty Hair, Nail and Skin; Grinbath's Bounty Acidophilus Probiotic; Bariatic Pal (calcium citrate and D3); Nature's Perfect Night Melatonin (20 mg)) Social:Use the Operatix nelia in the past Usual Food Intake:number of meals: per day PQ seen by RD regarding nutrition counseling for weight loss s/p gastric sleeve surgery. Pt reports wanting a better relationship with food as she continues her weight loss journey. Iris Pena RD [address] [facility],[address], [place], [address], [place] [employer] 12/17/2022 15:03:28 OBGyn Episode No OBEpisode recorded.
--- OUTSIDE RECORDS SUMMARY | 2024-06-17 08:39 | XMS_ITS | Patient Health Record ---
Author Organization [facility] Sudarshan Address [address] [place] [address] Care Team Providers Care Radiopharmacist Name Role Phone Lindsay Otto Primary Care Provider Unavailab Palmira Cox Unavailable [phone] Allergies No Known Allergies Reason For Referral [...] W/U Status Risk Notes Problem Interstitial myositis (54852799) Interstitial myositis of left foot (M60.172) Active confirmed Vital Signs Blood pressure diastolic 78 mm Hg 11/28/2023 Height 5ft6.5in in 11/28/2023 Blood pressure systolic 130 mm Hg 11/28/2023 Weight 223 lbs 11/28/2023 BMI 35.45 kg/m2 11/28/2023 Encounters Encounter Location Date Provider Diagnosis [facility] [address] [place] [address] 11/28/2023 Palmira Perica Pain in left foot [...] X ray : Foot, right 3V 01/21/2022 [id number] TENDON SHEATH/LIGAMENT 0 01/21/2022 Insurance Providers Payer Name Payer Address Payer Phone Subscriber Number Group Number Insured Name Patient Relationship to Insured Coverage Start Date Coverage End Date Arabella Montoya [id number] SUBHASH Tom [phone] [id number] Swathi Garcia Self - patient is the insured 9 Medical (General) History Medical History History ICD Code Anxiety Depression Gall bladder problems Headaches/Migraines Psoriasis/eczema Reflux ( GERD) Chicken pox Surgical History Surgery Date(Month/Year) knee surgery X4 elbow sx interstem in back carpal tunnel release mass removal from back breast surgery Hospitalization History Reason Date(Month/Year)
--- OUTSIDE RECORDS SUMMARY | 2024-06-17 08:39 | XMS_ITS | Patient Health Record ---
Author Organization [facility] Address [address] [place] [address] Care Team Providers Care Foil Stamp Operator Name Role Phone Janet ROCK MSc, Johana Unavailable [phone] Allergies No Known Allergies Reason For Referral [...] Problem Status W/U Status Risk Notes Problem [id number] Primary osteoarthritis of right knee (M17.11) Active [...]
== END 2024-06-17 09:13 | disposition home or self-care (01) ==
PROVIDERS: PCP Internal Medicine; Visit Provider Orthopaedic Surgery
DX: Z96.651 Presence of right artificial knee joint (principal)
CPT/HCPCS: 99024

== ENCOUNTER → 2024-06-17 08:35 | Outpatient (BNVA) | payer OTHER, SELFPAY | PROVIDERS: PCP Internal Medicine; Visit Provider Orthopaedic Surgery ==

== ENCOUNTER 2024-06-24 08:28 | Outpatient (AMB) | payer OTHER, SELFPAY ==
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
--- OUTSIDE RECORDS SUMMARY | 2024-06-24 08:30 | XMS_ITS | Data Portability ---
Author Organization [facility] Address [address] [place] [address] Assessment Encounter Date Assessment Date Assessment LastModified [...] Scheduled patient for follow-up in 2 weeks. [email or web address] [phone] [email or web address] Not available 11/10/2022 09:40:42 11/25/2022 11/25/2022 Pt [...] Scheduled patient for follow-up in 2 weeks. [email or web address] [phone] 11/25/22: trouble with sleep since late 30's; [...] in the summer; also access to the [employer] ; Uses FitBit to track her steps; [employer] kids activities coach asked her to join; Early 1999 had two ACL surgeries on right knee (Hamstring/cadae latasha - used CPM after surgery); planning to get knee surgery; one from [place] plans to come and live with her [...] better when she wears her knee brace [email or web address] Not available 11/25/2022 12:01:59 12/16/2022 12/16/2022 Pt [...] Scheduled patient for follow-up in 2 weeks. [email or web address] [phone] 11/25/22: trouble with sleep since late 30's; [...] in the summer; also access to the [employer] ; Uses FitBit to track her steps; Arabella [employer] kids activities coach asked her to join; Early 1999 had two ACL surgeries on right knee (Hamstring/cadae latasha - used CPM after surgery); planning to get knee surgery; one from [place] plans to come and live with her [...] better when she wears her knee brace [email or web address] Not available 12/16/2022 10:04:01 Plan of Treatment [...] By Organization Details Last Modified Time 11/10/2022 [id number] Jees goodman to meet you today. Congratulations on [...] eating (IE) which I think is a no-wheat shipper for you at this point in your [...] this should be part of our sessions. [facility] Nelia Let's definitely go through the [employer] nelia since it can help ALOT with [...] planned movement is so important!! Short and Mcfp Goals I would love to establish short and fci goals. Start thinking about what you want [...] Smile Iris Jean, MS RD LDN CSSD [email or web address] Not available 11/10/2022 11:44:20 11/25/2022 [id number] Ga Swathi berumen great meeting - I hope you agree!! Below are the items we discussed today. SUPPLEMENT ASSESSMENT After discussing the supplements you are currently taking, I took some tI evaluate your current supplement regimen (See attached) and came to the following conclusion: I recommend discontinuing (1) Hazen (Calcium, Magnesium and vitamin D) and (2) [...] Biden moments ). Here are some pool YouTBlockSpring workouts:which you can watch for some ideas or bring your phone to the pool and follow along. Can you do one or two of these workouts before we next meet? FIIT with Debbie: [email or web address]://[email or web address] POPsugar Fitness: https://www.Treasury Intelligence Solutionsube .com/watch?v=hLntTq J0WFg OR https://www.Treasury Intelligence Solutionsube .com/watch?v=N-SBQa RsalE OR https://www.Treasury Intelligence Solutionsube .com/watch?v=qBy0xZ PoWzM Neha Hutchisoner: https://Morningside Analytics.be/tx R4EEstsF4 Muscle conditioning: https://www.Treasury Intelligence Solutionsube .com/watch?v=cuUsIj WCr28 Mor Movement: https://www.Treasury Intelligence Solutionsube .com/@MorMovement. Here's an example of one of the workouts: https://www.Treasury Intelligence Solutionsube .com/watch?v=bAaREL 8vC4I If you don't want to [...] today, but let's definitely go through the [employer] [facility] nelia since it can help ALOT with [...] Iris [email or web address] Not available 11/25/2022 17:18:19 12/16/2022 [id number] Cookie Ruffin Great meeting yesterday. Below I [...] juice or a squeeze of lemon or false pass? Smoothies I am really excited to have you start experimenting with smoothies. This will increase your nutrient intake, fiber intake, protein intake, vitamin and mineral intake, etc. We can kill many birds with one stone. You will get soooooo much more nutritional value that the Premier Protein Shakes!! When we go over the [facility] nelia they have a bunch of smoothie [...] out of season) Smoothie Add-In Ideas Nut [place]: give it a boost of nutrition and [...] berries or mangoes Add ingredients to the grain blender: Add all of your ingredients to a high powered grain blender. Start with the liquids and then put [...] you pleasantly full. 2) Review of the [employer] [facility] nelia to help with meal planning. Good [...] Address Organization Details Last Updated DateTime 11/10/2022 26400.62 g 33.4 kg/m2 167.[address] [facility], [place], [address], [employer] 11/10/2022 09:09:58 Date Recorded Body height Body mass index (BMI) Body weight Provider Name and Address Organization Details Last Updated DateTime 11/25/2022 167.64 cm 32.8 kg/m2 [address]19.[address] [facility],[address], [place], [address], [facility] 11/25/2022 08:05:12 Social History Question Answer Notes LastModified by [facility] ion Details LastModified Time Are You Currently Employed? Yes [email or web address] Information not available 11/10/2022 What Is Your Occupation? [employer] Employee; Works From Home [email or web address] Information not available 11/10/2022 Do You Have Any Pets? Yes 17 Year Old Cat (80+ Human Years) [email or web address] Information not available 11/10/2022 Sex: Unknown Functional Status None recorded. Mental Status None recorded. Family History Nothing Reported. Medical History No medical history recorded. Gynecological HistoryNo gynecological history recorded. Obstetrics History GPAL:G 0 P 0 0 0 0 Past Encounters Encounter ID Performer Location Encounter Start Date Encounter Closed Date Diagnosis/Indication Diagnosis SNOMED-CT Code Diagnosis ICD10 Code [id number] [place] [address] [facility] [place] [address] 11/10/2022 07:51:05 11/10/2022 09:54:42 Diet education 16296412 Z71.[id number] [place] - [place] [address] [facility],[address] [place] [address] 11/25/2022 07:57:36 11/25/2022 09:29:09 Diet education 61820000 Z71.[id number] [place] - [place] [address] [facility],[address] [place] [address] 12/16/2022 09:51:26 12/16/2022 11:24:15 Diet education 69518947 Z71.3 Health Concerns Section Related Observation LastModified by Organization Detai ls LastModified Time None Recorded Concern Status LastModified by Organization Details LastModified Time None Recorded Advance Directives Directive None Recorded Payers Encounter Date Sequence Insurance Name Policy Number Policy Mckeon Covered Member ID Mckeon Member ID Guarantor Name 11/10/2022 1 [facility] [id number] Swathi Queior [id number] 1 Swathi Queior 11/25/2022 1 [facility] [id number] Swathi Queior [id number] 1 Swathi Queior 12/16/2022 1 [facility] [id number] Swathi Queior [id number] 1 Swathi Queior Notes Date Note Type [...] steady; gained wt when she moved to [place] in 2017 and became less active. In [place], biked and hiked Diet Recall:breakfast notes: (5-7 am 3 egg whites occ with cheese and Premier protein shake (tries for 2 per day); occ. Keto Crunch or Fiber One cereal with Campbell milk); AM snack notes: (none); lunch notes: (Bet 11-2 pm (depends on work); Occ Premier Protein shake; 647 Low Carb Bread with turkey, cheese, lerma and mustard; tky/cheese/pickle/m ay/mustard; [place]inean yogurt - Oikos; Cuke/tomato/red onion salad with Salvadorean dressing); PM snack notes: (Occ protein bars [...] big sweets person; loves carbs, tacos, burgers, Djiboutian fries; does not add salt to cooking; [...] taking vitamin supplement (Bariatric multivitamin) Social:Use the [employer] nelia in the past Usual Food Intake:number of meals: per day PQ seen by RD regarding nutrition counseling for weight loss s/p gastric sleeve surgery. Pt reports wanting a better relationship with food as she continues her weight loss journey. Iris Pena, INNA [address] [facility], [place], [address], [facility] - Aaron 11/10/2022 11:44:37 11/25/2022 [...] steady; gained wt when she moved to [place] in 2016 and became less active. In [place], biked and hiked Diet Recall:breakfast notes: (5-7 am 3 egg whites occ with cheese and Premier protein shake (tries for 2 per day); occ. Keto Crunch or Fiber One cereal with Campbell milk; Hard boiled eggs); AM snack notes: (none); lunch notes: (Bet 11-2 pm (depends on work); Occ Premier Protein shake; 647 Low Carb Bread with turkey, cheese, lerma and mustard; tky/cheese/pickle/m ay/mustard; [place]an yogurt - Oikos; Cuke/tomato/red onion salad with Salvadorean dressing); PM snack notes: (Occ protein bars [...] big sweets person; loves carbs, tacos, burgers, Djiboutian fries; does not add salt to cooking; [...] shakes and bars); currently taking vitamin supplement ([employer] Bariatric multivitamin special 45; Hazen (Ca, Mg, zinc, vit D); Nature's Bounty Hair, Nail and Skin; Nature's Bounty Acidophilus Probiotic; Bariatic Pal (calcium citrate and D3); Nature's Perfect Night Melatonin (20 mg)) Social:Use the [employer] nelia in the past Usual Food Intake:number of meals: per day PQ seen by RD regarding nutrition counseling for weight loss s/p gastric sleeve surgery. Pt reports wanting a better relationship with food as she continues her weight loss journey. Iris Pena RD [address] [facility], [place], [address], [place] [employer] 11/25/2022 17:18:39 12/16/2022 text/html [...] steady; gained wt when she moved to [place] in 2017 and became less active. In [place], biked and hiked Diet Recall:breakfast notes: (5-7 am 3 egg whites occ with cheese and Premier protein shake (tries for 2 per day); occ. Keto Crunch or Fiber One cereal with Campbell milk; Hard boiled eggs); AM snack notes: (none); lunch notes: (Bet 11-2 pm (depends on work); Occ Premier Protein shake; 647 Low Carb Bread with turkey, cheese, lerma and mustard; tky/cheese/pickle/m ay/mustard; [place]an yogurt - Oikos; Cuke/tomato/red onion salad with Salvadorean dressing); PM snack notes: (Occ protein bars [...] big sweets person; loves carbs, tacos, burgers, Djiboutian fries; does not add salt to cooking; [...] - vital proteins); currently taking vitamin supplement ([employer] Bariatric multivitamin special 45; Hazen (Ca, Mg, zinc, vit D); Nature's Bounty Hair, Nail and Skin; Neema's Bounty Acidophilus Probiotic; Bariatic Pal (calcium citrate and D3); Nature's Perfect Night Melatonin (20 mg)) Social:Use the Pow[employer] nelia in the past Usual Food Intake:number of meals: per day PQ seen by RD regarding nutrition counseling for weight loss s/p gastric sleeve surgery. Pt reports wanting a better relationship with food as she continues her weight loss journey. Iris Pena RD [address] [facility], [place], [address], [place] [employer] 12/17/2022 15:03:28 OBGyn Episode No OBEpisode recorded.
--- OUTSIDE RECORDS SUMMARY | 2024-06-24 08:30 | XMS_ITS | Patient Health Record ---
Author Organization [facility] Sudarshan Address [address] [place] [address] Care Team Providers Care Retail Sales Consultant Name Role Phone Lindsay Otto Primary Care Provider Unavailab Palmira Cox Unavailable [phone] Allergies No Known Allergies Reason For Referral [...] W/U Status Risk Notes Problem Interstitial myositis (00618810) Interstitial myositis of left foot (M60.172) Active confirmed Vital Signs Blood pressure diastolic 78 mm Hg 11/28/2023 Height 5ft6.5in in 11/28/2023 Blood pressure systolic 130 mm Hg 11/28/2023 Weight 223 lbs 11/28/2023 BMI 35.45 kg/m2 11/28/2023 Encounters Encounter Location Date Provider Diagnosis [facility] [address] [place] [address] 11/28/2023 Palmira Perica Pain in left foot [...] X ray : Foot, right 3V 01/21/2022 [id number] TENDON SHEATH/LIGAMENT 0 01/21/2022 Insurance Providers Payer Name Payer Address Payer Phone Subscriber Number Group Number Insured Name Patient Relationship to Insured Coverage Start Date Coverage End Date Arabella Montoya [id number] SUBHASH Tom [phone] [id number] Swathi Garcia Self - patient is the insured 9 Medical (General) History Medical History History ICD Code Anxiety Depression Gall bladder problems Headaches/Migraines Psoriasis/eczema Reflux ( GERD) Chicken pox Surgical History Surgery Date(Month/Year) knee surgery X4 elbow sx interstem in back carpal tunnel release mass removal from back breast surgery Hospitalization History Reason Date(Month/Year)
--- OUTSIDE RECORDS SUMMARY | 2024-06-24 08:31 | XMS_ITS | Patient Health Record ---
Author Organization [facility] Address [address] [place] [address] Care Team Providers Care Splicer Helper Name Role Phone Janet ROCK MSc, Johana Unavailable [phone] Allergies No Known Allergies Reason For Referral [...] Problem Status W/U Status Risk Notes Problem [id number] Primary osteoarthritis of right knee (M17.11) Active [...]
[2024-06-24 08:32] VITALS: BMI 37.8
== END 2024-06-24 09:14 | disposition home or self-care (01) ==
PROVIDERS: PCP Internal Medicine; Visit Provider Physician Assistant
DX: Z96.651 Presence of right artificial knee joint (principal); M62.81 Muscle weakness (generalized)
CPT/HCPCS: 99024

== ENCOUNTER 2024-06-27 10:00 | Outpatient (RCR) | payer OTHER, SELFPAY ==
--- NOTE | 2024-05-31 11:24 | MHC.PT.EP ---
[facility] [place] [facility] [place] [facility] [place] [facility] [address] [place] [address] [phone] F: [phone] F: [phone] F: [phone] F: [phone] Physical Therapy Plan of Care Date of Evaluation: 05/31/24 Date of Surgery: 05/14/2024 Diagnosis: s/p R TKA 05/14 Assessment: Patient is a 53 year old female presenting to PT s/p R TKA 05/14/2024. She presents today with impairments in pain, ROM, knee strength, hip strength, gait mechanics. 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 Pt expresses care home goal of returning to PLOF, and is motivated to work towards this in PT. Clinical presentation today is most consistent with signs and sx associated with s/p R TKA 05/14/2024 and pt will benefit from skilled PT 2 week x 4 weeks to address the following problems and impairments noted upon evaluation: pain, ROM, knee strength, hip strength, gait mechanics. These problems limit the patient with the following functional activities: ambulating, ADLs, stair negotiation, work. The prescribed treatment plan of care is medically necessary. Co-morbidities of depression, anxiety, CAD were identified and taken into considerations of plan of care. Pt was educated on HEP, role of PT, prognosis, POC. Frequency and Duration: The patient will be seen 2 x week x 4 weeks Short Term Goals: Pt will demonstrate R knee ROM to 120 in 2 weeks. Pt will demonstrate improved R knee MMT strength to 5/5 in 2 weeks. Pt will demonstrate hip MMT strength at least 4/5 in 2 weeks. [employer] Goals: Pt will demonstrate improved LEFI score by 9 points in 4 weeks for improved functional mobility. Pt will demonstrate ability to ambulate with normal mechanics and no AD in 4 weeks for improved access to the community. Pt will demonstrate ability to negotiate stairs with min to no pain in 4 weeks for return to PLOF. Treatment Plan: Modalities to reduce pain, spasms and effusion. Manual therapy to restore motion and function. Therapeutic exercise to improve strength and flexibility. Neuromuscular re-education for posture and balance. Therapeutic activities to return to functional activities of daily living. Electronically signed by: Jacey Schneider, PT, DPT, ATC Please sign and return to therapist. Thank you for your referral.
--- NOTE | 2024-06-27 10:57 | MHC.PT.DC ---
[facility] Office [place] Office [place] Office [address] [place] [address] [phone] F: [phone] F: [phone] F: [phone] F: [phone] Physical Therapy Discharge Report Diagnosis: s/p R TKA 05/14 Date of Surgery: 05/14/2024 Date of Evaluation: 05/31/24 Date of Discharge: 06/27/24 Treatments to Date: 6 Cancellations to Date: 3 No Shows to Date: 0 Discharge Status: Physician Discontinued Tx Recommend MD Follow-up Discharge Summary: 06/27/2024: Pt still unable to activate quad. She thought she had made progress towards this however she is actually compensating with hip muscles and has not made any progress since I last saw her. She also continues to have a decent amount of swelling. Today we focused on massage for pain management as she is also dealing with a lot of pain still. I spent extensive time educating her on the anatomy and the concern the surgeon has in regard to the quad tendon. We reviewed potential course of rehab going forward if they do need to repair her quad. She is understanding of plan going forward and will be d/c from this POC with anticipation for new PT eval once she is cleared by the surgeon. Electronically signed by: Jacey Schneider, PT, DPT, ATC Please sign and return to therapist. Thank you for your referral.
== END 2024-06-27 10:57 | disposition home or self-care (01) ==
LOC: HO.PTCHIC 10:00
PROVIDERS: PCP Internal Medicine; Visit Provider Physician Assistant
DX: Z96.651 Presence of right artificial knee joint (principal)
CPT/HCPCS: 97110; 97140; 97161

== ENCOUNTER 2024-06-28 10:44 | Day surgery (SDC) | payer OTHER, SELFPAY ==
--- OUTSIDE RECORDS SUMMARY | 2024-06-24 10:13 | XMS_ITS ---
Author Organization [facility] yesenia Ingalls Address [address] [place] [address] Care Team Providers Care Intelligence Intern Name Role Phone Lindsay Otto Primary Care Provider UnavailPalmira Hardwick Unavailable [phone] Allergies No Known Allergies REASON FOR VISIT [...] W/U Status Risk Notes Problem Interstitial myositis (44080279) Interstitial myositis of left foot (M60.172) Active confirmed Vital Signs Height 5ft6.5in in 11/28/2023 Weight 223 lbs 11/28/2023 BMI 35.45 kg/m2 11/28/2023 Blood pressure systolic 130 mm Hg 11/28/19 24 Blood pressure diastolic 78 mm Hg 024 Encounters Encounter Location Date Provider Diagnosis [facility] [address] [place] [address] 11/28/2023 Palmira Perica Pain in left foot [...] Notes * Swathi GARCIADOB:1970 (53 yo F)Acc No.[id number]:11/28/2023 Progress Note Patient:?Swathi Garcia Provider:?Palmira Watts DPM :1970???Age:53 Y???Sex:Female D ate:11/28/2023 Address:[address] [place] [address] , [facility] Pcp:Lindsay Otto Subjective: * Chief Complaints: * [...] occassionally , walking. ?Marital status: single. 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 * Medications:?TakingSEROquel DayVigo 10 MG Tablet 1 [...] ray : Foot, left 3V * Procedure Codes:?25164 X-RAY EXAM OF LEFT FOOT 3V, Modifiers: [...] Interfil injection therapy, as well as surgical Winston/Endoscopic Fasciitomy surgical procedures if needed. Recommendations were [...] Watts, JODY Date:?09/2023 Generated for Samaria clark/[facility]/Elijah on:?06/24/2024 10:13 AM EST History and Physical Notes * [...] person, place, and t ryann Vascular DP PULSES (B): 3/4, B/L PT PULSES (B): 3/4, B/L CAPILLARY FILL TIME: immediate, all digi ts, B/L TEMPERTURE GRADIENT (C): normal, warm to cool, proximal to distal, [...]
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
[2024-06-28] VITALS (8 sets, daily range): BP systolic 118–136; BP diastolic 56–79; PULSE 76–93; RESP 16–18; TEMP 36.1–37.2; O2SAT 96–99; BMI 37.7
[2024-06-28] MEDS: Scopolamine 1.5 MG PATCH.TD.3 TRANSDERMA (12:19)
--- OUTSIDE RECORDS SUMMARY | 2024-06-28 12:22 | XMS_ITS | Patient Health Record ---
Author Organization [facility] [place] Address [address] [place] [address] Care Team Providers Care Sde Name Role Phone Lindsay Otto Primary Care Provider Unavailab Palmira Cox Unavailable [phone] Allergies No Known Allergies Reason For Referral [...] W/U Status Risk Notes Problem Interstitial myositis (00528472) Interstitial myositis of left foot (M60.172) Active confirmed Vital Signs Blood pressure diastolic 78 mm Hg 11/28/2023 Height 5ft6.5in in 11/28/2023 Blood pressure systolic 130 mm Hg 11/28/2023 Weight 223 lbs 11/28/2023 BMI 35.45 kg/m2 11/28/2023 Encounters Encounter Location Date Provider Diagnosis [facility] [place] [address] [place] [address] 11/28/2023 Palmira Perica Pain in left foot [...] X ray : Foot, right 3V 01/21/2022 [id number] TENDON SHEATH/LIGAMENT 0 01/21/2022 Insurance Providers Payer Name Payer Address Payer Phone Subscriber Number Group Number Insured Name Patient Relationship to Insured Coverage Start Date Coverage End Date Arabella Montoya [id number] SUBHASH Tom [id number] Swathi Garcia Self - patient is the insured 9 Medical (General) History Medical History History ICD Code Anxiety Depression Gall bladder problems Headaches/Migraines Psoriasis/eczema Reflux ( GERD) Chicken pox Surgical History Surgery Date(Month/Year) knee surgery X4 elbow sx interstem in back carpal tunnel release mass removal from back breast surgery Hospitalization History Reason Date(Month/Year)
--- OUTSIDE RECORDS SUMMARY | 2024-06-28 12:22 | XMS_ITS | Data Portability ---
Author Organization [facility] Address [address] [place] [address] Assessment Encounter Date Assessment Date Assessment LastModified [...] Scheduled patient for follow-up in 2 weeks. [email or web address] [phone] [email or web address] Not available 11/10/2022 09:40:42 11/25/2022 11/25/2022 Pt [...] Scheduled patient for follow-up in 2 weeks. 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 Congratulations [...] eating (IE) which I think is a no-document controller for you at this point in your [...] this should be part of our sessions. TRUSTe Nelia Let's definitely go through the TRUSTe nelia since it can help ALOT with [...] I would love to establish short and chcf goals. Start thinking about what you want [...] Smile Iris Jean, MS RD LDN CSSD [email or web address] Not available 11/10/2022 11:44:20 11/25/2022 [id number] Fl Swathi berumen great meeting - I hope you agree!! Below are the items we discussed today. SUPPLEMENT ASSESSMENT After discussing the supplements you are currently taking, I took some tI evaluate your current supplement regimen (See attached) and came to the following conclusion: I recommend discontinuing (1) Thorpe (Calcium, Magnesium and vitamin D) and (2) [...] Biden moments ). Here are some pool YouTAcquia workouts:which you can watch for some ideas or bring your phone to the pool and follow along. Can you do one or two of these workouts before we next meet? FIIT with Debbie: [email or web address] POPsugar Fitness: https://www.Aria Innovationsube .com/watch?v=hLntTq J0WFg OR https://www.Aria Innovationsube .com/watch?v=N-SBQa RsalE OR https://www.Aria Innovationsube .com/watch?v=qBy0xZ PoWzM Neha Hutchisoner: https://Clipsure.be/tx [email or web address] Muscle conditioning: https://www.Aria Innovationsube .com/watch?v=cuUsIj WCr28 Mor Movement: https://www.Aria Innovationsube .com/@MorMovement. Here's an example of one of the workouts: https://www.Aria Innovationsube .com/watch?v=bAaREL 8vC4I If you don't want to [...] today, but let's definitely go through the TRUSTe nelia since it can help ALOT with [...] Iris [email or web address] Not available 11/25/2022 17:18:19 12/16/2022 [id number] Cookie Ruffin Great meeting yesterday. Below I [...] juice or a squeeze of lemon or [place]? Smoothies I am really excited to have you start experimenting with smoothies. This will increase your nutrient intake, fiber intake, protein intake, vitamin and mineral intake, etc. We can kill many birds with one stone. You will get soooooo much more nutritional value that the Premier Protein Shakes!! When we go over the TRUSTe nelia they have a bunch of smoothie [...] out of season) Smoothie Add-In Ideas Nut [place]: give it a boost of nutrition and [...] berries or mangoes Add ingredients to the stock blender: Add all of your ingredients to a high powered stock blender. Start with the liquids and then [...] you pleasantly full. 2) Review of the TRUSTe nelia to help with meal planning. Good [...] Address Organization Details Last Updated DateTime 11/10/2022 31267.62 g 33.4 kg/m2 167.[address] [facility], [place], [address], [facility] 11/10/2022 09:09:58 Date Recorded Body height Body mass index (BMI) Body weight Provider Name and Address Organization Details Last Updated DateTime 11/25/2022 167.64 cm 32.8 kg/m2 [address]21.[address] [facility],[address], [place], [address], [facility] 11/25/2022 08:05:12 Social History Question Answer Notes LastModified by [employer] ion Details LastModified Time Are You Currently Employed? Yes Information not available 11/10/2022 What Is Your Occupation? [employer] Employee; Works From Home [email or web address] Information not available 11/10/2022 Do You Have Any Pets? Yes 17 Year Old Cat (80+ Human Years) [email or web address] Information not available 11/10/2022 Sex: Unknown Functional Status None recorded. Mental Status None recorded. Family History Nothing Reported. Medical History No medical history recorded. Gynecological HistoryNo gynecological history recorded. Obstetrics History GPAL:G 0 P 0 0 0 0 Past Encounters Encounter ID Performer Location Encounter Start Date Encounter Closed Date Diagnosis/Indication Diagnosis SNOMED-CT Code Diagnosis ICD10 Code [id number] [facility] [address] [facility],[address] [place] [address] 11/10/2022 07:51:05 11/10/2022 09:54:42 Diet education 25690540 Z71.[id number] [place] [address] [facility],[address] [place] [address] 11/25/2022 07:57:36 11/25/2022 09:29:09 Diet education 49436446 Z71.[id number] [place] - [place] [address] [facility],[address] [place] [address] 12/16/2022 09:51:26 12/16/2022 11:24:15 Diet education 60779659 Z71.3 Health Concerns Section Related Observation LastModified by Organization Detai ls LastModified Time None Recorded Concern Status LastModified by Organization Details LastModified Time None Recorded Advance Directives Directive None Recorded Payers Encounter Date Sequence Insurance Name Policy Number Policy Mckeon Covered Member ID Mckeon Member ID Guarantor Name 11/10/2022 1 [facility] [id number] Swathi Queior [id number] 1 Swathi Queior 11/25/2022 1 [facility] [id number] Swathi Queior [id number] 1 Swathi Queior 12/16/2022 1 [facility] [id number] Swathi Queior [id number] 1 Swathi Queior Notes Date Note Type [...] steady; gained wt when she moved to [place] in 2017 and became less active. In [place], biked and hiked Diet Recall:breakfast notes: (5-7 am 3 egg whites occ with cheese and Premier protein shake (tries for 2 per day); occ. Keto Crunch or Fiber One cereal with [place] milk); AM snack notes: (none); lunch notes: (Bet 11-2 pm (depends on work); Occ Premier Protein shake; 647 Low Carb Bread with turkey, cheese, lerma and mustard; tky/cheese/pickle/m ay/mustard; English yogurt - Oikos; Cuke/tomato/red onion salad with [place] dressing); PM snack notes: (Occ protein bars [...] big sweets person; loves carbs, tacos, burgers, Sudanese fries; does not add salt to cooking; [...] taking vitamin supplement (Bariatric multivitamin) Social:Use the [address] nelia in the past Usual Food Intake:number of meals: per day PQ seen by RD regarding nutrition counseling for weight loss s/p gastric sleeve surgery. Pt reports wanting a better relationship with food as she continues her weight loss journey. Iris Pena, INNA [address] [facility], [place], [address], [facility] - Aaron 11/10/2022 11:44:37 11/25/2022 text/html FOODSMART [...] steady; gained wt when she moved to [place] in 2016 and became less active. In [place], biked and hiked Diet Recall:breakfast notes: (5-7 am 3 egg whites occ with cheese and Premier protein shake (tries for 2 per day); occ. Keto Crunch or Fiber One cereal with [place] milk; Hard boiled eggs); AM snack notes: (none); lunch notes: (Bet 11-2 pm (depends on work); Occ Premier Protein shake; 647 Low Carb Bread with turkey, cheese, lerma and mustard; tky/cheese/pickle/m ay/mustard; English yogurt - Oikos; Cuke/tomato/red onion salad with [place] dressing); PM snack notes: (Occ protein bars [...] big sweets person; loves carbs, tacos, burgers, Sudanese fries; does not add salt to cooking; [...] shakes and bars); currently taking vitamin supplement ([employer]logic Bariatric multivitamin special 45; Thorpe (Ca, Mg, zinc, vit D); Nature's Bounty Hair, Nail and Skin; Nature's Bounty Acidophilus Probiotic; Bariatic Pal (calcium citrate and D3); Nature's Perfect Night Melatonin (20 mg)) Social:Use the [address] nelia in the past Usual Food Intake:number of meals: per day PQ seen by RD regarding nutrition counseling for weight loss s/p gastric sleeve surgery. Pt reports wanting a better relationship with food as she continues her weight loss journey. Iris Pena RD [address] [facility], [place], [address], [place] [employer] 11/25/2022 17:18:39 12/16/2022 text/html [...] steady; gained wt when she moved to [place] in 2017 and became less active. In [place], biked and hiked Diet Recall:breakfast notes: (5-7 am 3 egg whites occ with cheese and Premier protein shake (tries for 2 per day); occ. Keto Crunch or Fiber One cereal with [place] milk; Hard boiled eggs); AM snack notes: (none); lunch notes: (Bet 11-2 pm (depends on work); Occ Premier Protein shake; 647 Low Carb Bread with turkey, cheese, lerma and mustard; tky/cheese/pickle/m ay/mustard; English yogurt - Oikos; Cuke/tomato/red onion salad with [place] dressing); PM snack notes: (Occ protein bars [...] big sweets person; loves carbs, tacos, burgers, Sudanese fries; does not add salt to cooking; [...] - vital proteins); currently taking vitamin supplement ([employer] Bariatric multivitamin special 45; Thorpe (Ca, Mg, zinc, vit D); Nature's Bounty Hair, Nail and Skin; PolyTherics's Bounty Acidophilus Probiotic; Bariatic Pal (calcium citrate and D3); Nature's Perfect Night Melatonin (20 mg)) Social:Use the [address] nelia in the past Usual Food Intake:number of meals: per day PQ seen by RD regarding nutrition counseling for weight loss s/p gastric sleeve surgery. Pt reports wanting a better relationship with food as she continues her weight loss journey. Iris Pena RD [address] [facility],[address], [place], [address], [place] [employer] 12/17/2022 15:03:28 OBGyn Episode No OBEpisode recorded.
--- OUTSIDE RECORDS SUMMARY | 2024-06-28 12:23 | XMS_ITS | Patient Health Record ---
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
[2024-06-28] MEDS: Lactated Ringers 1,000 ML 100 ML IVCONT ×2 (12:33→18:45)
--- NOTE | 2024-06-28 12:42 | MHC.SHP ---
Pre-Procedural Eval Section A - 24 Hr Update-Section A only Date of Service: 06/28/24 The patient is an INPATIENT: No Changes since office visit: No Cold of Flu in the past 2 weeks, No New Medical Problems, No Changes in Medication and No Patient answered all questions The patient has been examined within 24 hours of the surgical procedure. The History & Physical has been completed within 30 days and I have reviewed it.: Yes Section B - Complete if H&P > 30 days Chief Complaint: Muscle weakness (generalized) Allergies: Allergies Allergy/AdvReac Type Severity Reaction Status Date / Time No Known Allergies Allergy Verified 06/28/24 11:59 Plan I have reviewed the history and physical and performed a pertinent physical examination on my patient. No changes have occurred unless specified. Time Spent With Patient Time: Total time managing care of this patient today ____ minutes.
--- NOTE | 2024-06-28 16:09 | PM.OP ---
Brief Operative Note Date of Service: 06/28/24 Pre-op diagnosis: right knee quad tear Post-op diagnosis: other (Partial tear right quad) Procedure: Debridement and repair right partial quad tear Implants: Regeneten bioinductive implant Surgeon: Matthew Freitas MD Anesthesia: GLMA and regional Was an Tank Operator used for this Procedure?: Yes Tank Operator: Alda Hays Estimated blood loss (mL): 25 Tourniquet time (min): 30 IV fluids (mL): 750 Pathology: none sent Condition: stable Disposition: PACU
[2024-06-28 19:19] LABS: Creatinine Clr Calc Pharmacy 95.2; Estimated Glomerular Filt Rate > 60
[2024-06-28] MEDS: LORazepam 1 MG TABLET 2 MG PO (20:37)
[2024-06-28] MEDS: Celecoxib 200 MG CAPSULE PO (20:38)
[2024-06-28] MEDS: Docusate Sodium 100 MG CAPSULE PO (20:38)
[2024-06-28] MEDS: QUEtiapine Fumarate 100 MG TABLET PO (20:38)
[2024-06-28] MEDS: ceFAZolin Sodium/Dextrose,Iso 2 GM/50 ML PIGGYBACK IV (20:48)
--- NOTE | 2024-06-28 20:56 | PHA.MEDREC ---
Pharmacy Consult ? Medication Reconciliation Pharmacy has reviewed the medication reconciliation completed by nursing. Sabi spoke with pt to confirm medications. .
[2024-06-28] MEDS: oxyCODONE HCl Immed Release 5 MG TABLET PO (21:28)
[2024-06-28] MEDS: traZODone HCL 100 MG TABLET PO (21:38)
[2024-06-28] MEDS: Acetaminophen 1,000 MG/100 ML PIGGYBACK 400 MG IV (21:38)
[2024-06-29] VITALS: BP 114/63; PULSE 84; RESP 16; TEMP 36; O2SAT 94
[2024-06-29 03:22] VITALS: BP 122/70; PULSE 64; RESP 16; TEMP 36.4; O2SAT 96
[2024-06-29] MEDS: Acetaminophen 1,000 MG/100 ML PIGGYBACK 400 MG IV ×2 (04:19→11:02)
[2024-06-29] MEDS: Lactated Ringers 1,000 ML 100 ML IVCONT (04:42)
[2024-06-29] MEDS: Omeprazole 20 MG CAPSULE.DR PO (05:37)
[2024-06-29 07:53] LABS: Hematocrit 34.1 % (37.0-47.0); Hemoglobin 11.6 g/dl (12.0-16.0)
[2024-06-29 07:54] VITALS: BP 119/72; PULSE 72; RESP 16; TEMP 36.6; O2SAT 96
--- NOTE | 2024-06-29 08:20 | PM.PNORT ---
Subjective Subjective Date of Service: 06/29/24 Interval history: Patient is a 53-year-old female who is postop day 1 status post right partial quad tendon repair with Dr. Freitas Patient resting comfortably in bed this morning Pain well managed No acute events overnight Patient states that ?the shifting then I had been feeling when flexing my knee has resolved since surgery No other acute complaints or concerns at this time Physical Exam Vital Signs: Vital Signs: Last Vital Signs Temp 97.9 F 06/29/24 07:54 Pulse 72 06/29/24 07:54 Resp 16 06/29/24 07:54 BP 119/72 06/29/24 07:54 Pulse Ox 96 06/29/24 07:54 O2 Del Method Room Air 06/29/24 07:54 BMI result Body Mass Index 37.7 Extrem: Other: Dressing on right knee clean, dry, intact No evidence of surrounding erythema, ecchymosis No evidence of infection Patient is able to flex and extend the digits of the left foot without difficulty Patient does demonstrate the ability to actively flex at the knee to approximately 45 degrees over the course of the exam Compartments soft, nontender Distal sensation intact Capillary refill brisk Procedures Date of Service Date of Service: 06/29/24 Progress Note: A&P Assessment and plan (1) Status post total right knee replacement: Status: Acute (2) Injury of quadriceps tendon: Status: Acute Plan 1. Status post right quadriceps tendon repair with Dr. Freitas DOS 06/28/2024 Patient appears to be recovering well postoperatively Patient is educated about the typical recovery course Continue pain management PT eval today Initiate DVT prophylaxis with Lovenox Dispo planning-pending PT evaluation Time Spent With Patient Time: Total time managing care of this patient today ____ minutes. Quality Stroke Does the patient have a stroke diagnosis?: No VTE Prior VTE?: No VTE Risk Level:: Surgical - high VTE Device Contraindication: N/A - Device Ordered VTE Drug Contraindication: N/A - Med Ordered
[2024-06-29] MEDS: Docusate Sodium 100 MG CAPSULE PO (08:39)
[2024-06-29] MEDS: Celecoxib 200 MG CAPSULE PO (08:39)
[2024-06-29] MEDS: buPROPion HCl XL 150 MG TAB.ER.24H PO (08:39)
[2024-06-29] MEDS: oxyCODONE HCl Immed Release 5 MG TABLET 10 MG PO (08:46)
[2024-06-29 11:36] VITALS: BP 123/62; PULSE 77; RESP 16; TEMP 36.9; O2SAT 97
--- NOTE | 2024-06-29 11:45 | MHC.CM.PN ---
Addendum entered by Susan Styles RN 06/29/24 12:38: Patient medically cleared for dc home self care. Aunt at bedside to transport. Original Note: Patient lives in a home alone. Functionally independent. Ambulates w/ cane. PCP Lindsay Otto MD Completed HCP naming [facility] 1)son Guillermo Mota and 2) daughter in law Andree Styles. DP: PT rec outpatient services. Home, self care. Aunt to transport. CM will continue to follow.
--- NOTE | 2024-06-29 11:57 | P.DS_ITS ---
DS: Providers Provider Date of Service: 06/29/24 Primary care physician: Lindsay Otto MD DS: Diagnosis Discharge Diagnosis (1) Status post total right knee replacement: Status: Acute (2) Injury of quadriceps tendon: Status: Acute DS: Summary Hospital Course Hospital Course: The patient underwent a successful right quadriceps tendon repair on, was transferred to PACU and then to the floor to recover. During their stay, their vitals were stable, afebrile at 98.4. Labs were unremarkable, H/H 11.6/34.1. POD 1 she was started on Lovenox 40 mg for DVT ppx, they also received Physical Therapy services twice a day. Physical therapy should include gait training, ROM to tolerance and quad strength. She is WBAT. Prior to discharge, her dressing was changed, incision clean dry and intact, new Aquacel dressing applied. The Aquacel dressing should remain intact and dry at all times. Any concerns with the dressing, please contact orthopedic office. No showering. The plan is to be discharged Status at Discharge Cognitive/behavioral status at discharge: Stable for discharge Time Attestation Discharge Coordination Time (in mins): 30 Quality: Safe Use of Opioids Does Pt have an Active Cancer Diagnosis on the Problem List?: No Quality: Stroke Does the patient have a stroke diagnosis?: No Physical Exam Vital Signs: Vital Signs: Last Vital Signs Temp 98.4 F 06/29/24 11:36 Pulse 77 06/29/24 11:36 Resp 16 06/29/24 11:36 BP 123/62 06/29/24 11:36 Pulse Ox 97 06/29/24 11:36 O2 Del Method Room Air 06/29/24 11:36 BMI result Body Mass Index 37.7 Extrem: Other: Dressing on right knee clean, dry, intact No evidence of surrounding erythema, ecchymosis No evidence of infection Patient is able to flex and extend the digits of the left foot without difficulty Patient does demonstrate the ability to actively flex at the knee to approximately 45 degrees over the course of the exam Compartments soft, nontender Distal sensation intact Capillary refill brisk DS: Data Data Completed and Pending Labs on day of discharge: Laboratory Results - last 24 hr 06/28/24 06/29/24 18:36 07:30 Hgb 11.6 L Hct 34.1 L Creatinine 0.85 Estim Creat Clear Calc 95.2 Estimated GFR > 60 Discharge Plan Discharge Patient Disposition: Home, Self-Care Referrals: Alda Hays PA-C [Physician Cleaning Attendant] - 2 Weeks (07/08/24 09:30 [facility] [place] Orthopedic Surgeons Alda Hays PA-C) Discharge Medications: New celecoxib 200 mg Capsule 200 mg PO BID 30 Days Qty: 60 0RF docusate sodium 100 mg Capsule 100 mg PO BID 30 Days Qty: 60 0RF oxycodone 5 mg Tablet 5 mg PO Q4H PRN (Reason: Pain, Severe (Pain Scale 7-10)) 7 Days Qty: 42 0RF Rx Instructions: Partial Fill upon patient request. enoxaparin 40 mg/0.4 mL Syringe 40 mg subcut Q24H 14 Days Qty: 5.6 0RF Continued (DME) walker Misc See Rx Instructions .MEDSUPPLY Qty: 1 0RF Rx Instructions: Folding Front wheeled walker (DME) cane Device See Rx Instructions .MEDSUPPLY Qty: 1 0RF Rx Instructions: As directed multivitamin Tablet 1 tab PO DAILY betamethasone dipropionate 0.05 % ointment 1 appl TOPICAL BID PRN (Reason: Rash) Yjcrmq-Brimxlin-Jeicupz 2 gummy PO DAILY trazodone 100 mg tablet 100 mg PO BEDTIME trazodone 50 mg tablet 50 mg PO BEDTIME PRN (Reason: Sleep) quetiapine 25 mg tablet 25 - 50 mg PO BEDTIME PRN (Reason: Mood) Rx Instructions: Takes 100 mg at bedtime and 25-50mg if needed. acetaminophen 500 mg tablet 1,000 mg PO Q6H PRN (Reason: pain) lorazepam 2 mg tablet 2 mg PO TID PRN (Reason: anxirty) lansoprazole [Prevacid] 30 mg capsule,delayed release(DR/EC) 30 mg PO DAILY@0630 bupropion HCl 200 mg tablet sustained-release 12 hr 200 mg PO QAM eszopiclone 3 mg tablet 3 mg PO BEDTIME quetiapine [Seroquel] 100 mg tablet 100 mg PO BEDTIME clobetasol 0.05 % solution 1 appl topical DAILY PRN (Reason: Rash) tizanidine 4 mg capsule 4 mg PO TID PRN (Reason: Muscle Spasm) Discontinued ibuprofen 400 mg Tablet 400 mg PO Q6H PRN (Reason: Pain) oxycodone 5 mg tablet 5 mg PO Q8H PRN (Reason: pain (scale score 4-6)) 7 Days Qty: 21 0RF Rx Instructions: Partial Fill upon patient request. Activity on Discharge: Use cane or walker Activity Restrictions/Additional Instructions: Weight-bearing as tolerated on right lower extremity Range of motion as tolerated of right lower extremity Continue working with physical therapy for return to function of right knee status post right TKA and right quad tendon partial repair Continue taking Lovenox injections for 2 weeks after discharge Keep Aquacel dressing on right knee clean, dry, intact until follow-up No showering Call our office with any concerns Print Language: Azerbaijani
--- NOTE | 2024-06-29 14:48 | HO.POSTANES ---
Post Anesthesia Evaluation Post Anesthesia Evaluation Date of Service: 06/29/24 Vital Signs: Vital Signs Temp Pulse Resp BP Pulse Ox O2 Del Method 06/29/24 11:36 98.4 F 77 16 123/62 97 Room Air 06/29/24 07:54 97.9 F 72 16 119/72 96 Room Air 06/29/24 03:22 97.6 F 64 16 122/70 96 Room Air Anesthesia: General Mental Status: Awake Pain Control: Satisfactory Nausea/Vomiting: None Hydration: Adequate Anesthesia-Related Issues: No Anes. Related Issues
--- NOTE | 2024-07-02 13:04 | P.OP_ITS ---
Operative Note Operative Note Date of Service: 06/28/24 Narrative: Date of Service: 06/28/24 Pre-op diagnosis: right knee quad tear Post-op diagnosis: other (Partial tear right quad) Procedure: Debridement and repair right partial quad tear Implants: Regeneten bioinductive implant Surgeon: Matthew Freitas MD Anesthesia: GLMA and regional Was an Barrel Rib Matting Machine Operator used for this Procedure?: Yes Barrel Rib Matting Machine Operator: Alda Hays Estimated blood loss (mL): 25 Tourniquet time (min): 30 IV fluids (mL): 750 Pathology: none sent Condition: stable Disposition: PACU Patient was brought to the operating room and placed supine on the surgical table. She was prepped and draped in standard sterile fashion and a time out was called to identify proper site, proper procedure and IV antibiotics per weight were administered. I began by making a ~6 cm incision over the proximal TKA incision.. I dissected down to the fascia overlying the quadriceps tendon. I incised through this and there was a small but complete quadriceps tear at the prior incision. Overall the extensor mechanism was functioning but theere was communication with the deep joint space. The wound was irrigated and a fiber wire suture was used to reapproximate the fibers of the quad. The attachment to the patella were intact. The repair was anatomic. I then placed a large Regeneten bioinductive implant and this was sewn to the fascia with absorbably suture. The fascia was closed and the sub q was closed and the skin with diane. Sterile dressing were applied and the patient was extubated and brought to the recovery room in stable condition. There were no known complications.
== END 2024-06-29 13:09 | disposition home or self-care (01) ==
LOC: HO.SSS 10:45 → HO.S3 16:24
PROVIDERS: Physician Assistant; PCP Internal Medicine; Visit Provider Orthopaedic Surgery
PROC: (CPT 27385; principal; 2024-06-28 14:00)
DX: S76.111A Strain of right quadriceps muscle, fascia and tendon, initial encounter (principal); M62.81 Muscle weakness (generalized); Z96.651 Presence of right artificial knee joint; M25.561 Pain in right knee; X58.XXXA Exposure to other specified factors, initial encounter; Y93.9 Activity, unspecified; Y92.9 Unspecified place or not applicable; Y99.9 Unspecified external cause status; R91.1 Solitary pulmonary nodule; G47.30 Sleep apnea, unspecified; I25.10 Atherosclerotic heart disease of native coronary artery without angina pectoris; E78.5 Hyperlipidemia, unspecified; F32.A Depression, unspecified; R32 Unspecified urinary incontinence; Z96.82 Presence of neurostimulator; Z79.899 Other long term (current) drug therapy; Z98.890 Other specified postprocedural states; Z98.84 Bariatric surgery status; F17.210 Nicotine dependence, cigarettes, uncomplicated
CPT/HCPCS: 27385; 36415; 82565; 85014; 85018; 97161; C1763; J0131; J0690; J1100; J1171; J1885; J2003; J2060; J2250; J2405; J2704; J2795; J3010; J7120

== ENCOUNTER → 2024-06-28 10:44 | Outpatient (BNV) | payer OTHER, SELFPAY | PROVIDERS: PCP Internal Medicine; Visit Provider Orthopaedic Surgery | DX: S76.111A Strain of right quadriceps muscle, fascia and tendon, initial encounter (principal) | CPT/HCPCS: 27385 ==

== ENCOUNTER 2024-07-08 09:06 | Outpatient (AMB) | payer OTHER, SELFPAY ==
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
--- OUTSIDE RECORDS SUMMARY | 2024-07-08 09:41 | XMS_ITS | Patient Health Record ---
Author Organization [facility] Address [address] [place] [address] Care Team Providers Care Burglar Alarm Mechanic Name Role Phone Lindsay Otto Primary Care Provider Unavailab Palmiar Cox Unavailable [phone] Allergies No Known Allergies Reason For Referral [...] W/U Status Risk Notes Problem Interstitial myositis (54772924) Interstitial myositis of left foot (M60.172) Active confirmed Vital Signs Blood pressure diastolic 78 mm Hg 11/28/2023 Height 5ft6.5in in 11/28/2023 Blood pressure systolic 130 mm Hg 11/28/2023 Weight 223 lbs 11/28/2023 BMI 35.45 kg/m2 11/28/2023 Encounters Encounter Location Date Provider Diagnosis [facility] [employer] [address] [place] [address] 11/28/2023 Palmira Perica Pain in left foot [...] X ray : Foot, right 3V 01/21/2022 [id number] TENDON SHEATH/LIGAMENT 0 01/21/2022 Insurance Providers Payer Name Payer Address Payer Phone Subscriber Number Group Number Insured Name Patient Relationship to Insured Coverage Start Date Coverage End Date Arabella Montoya [id number] [employer] [place] [phone] [id number] Swathi Garcia Self - patient is the insured 9 Medical (General) History Medical History History ICD Code Anxiety Depression Gall bladder problems Headaches/Migraines Psoriasis/eczema Reflux ( GERD) Chicken pox Surgical History Surgery Date(Month/Year) knee surgery X4 elbow sx interstem in back carpal tunnel release mass removal from back breast surgery Hospitalization History Reason Date(Month/Year)
--- OUTSIDE RECORDS SUMMARY | 2024-07-08 09:42 | XMS_ITS | Patient Health Record ---
Author Organization [facility] Address [address] [place] [address] Care Team Providers Care Laborer Pipeline Name Role Phone Janet ROCK MSc, Johana Unavailable [phone] Allergies No Known Allergies Reason For Referral [...] Problem Status W/U Status Risk Notes Problem [id number] Primary osteoarthritis of right knee (M17.11) Active [...]
== END 2024-07-08 09:35 | disposition home or self-care (01) ==
PROVIDERS: PCP Internal Medicine; Visit Provider Physician Assistant
DX: S76.109A Unspecified injury of unspecified quadriceps muscle, fascia and tendon, initial encounter (principal); Z96.651 Presence of right artificial knee joint
CPT/HCPCS: 99024

== ENCOUNTER → 2024-08-02 13:20 | Outpatient (AMB) | payer OTHER, SELFPAY | END | disposition home or self-care (01) | CPT/HCPCS: 99024 ==

== ENCOUNTER → 2024-08-02 13:20 | Outpatient (BNVA) | payer OTHER, SELFPAY | PROVIDERS: PCP Internal Medicine; Visit Provider Physician Assistant ==

== ENCOUNTER → 2024-09-02 09:30 | Outpatient (BNV) | payer OTHER, SELFPAY | PROVIDERS: Visit Provider Clinical Nurse Specialist Psychiatric/Mental Health | DX: F33.2 Major depressive disorder, recurrent severe without psychotic features (principal) | CPT/HCPCS: 99205 ==

== ENCOUNTER 2024-09-13 10:29 | Outpatient (AMB) | payer OTHER, SELFPAY ==
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
== END 2024-09-13 10:59 | disposition home or self-care (01) ==
LOC: HO.HOS 10:30
PROVIDERS: PCP Internal Medicine; Visit Provider Orthopaedic Surgery
DX: Z96.651 Presence of right artificial knee joint (principal); S76.109A Unspecified injury of unspecified quadriceps muscle, fascia and tendon, initial encounter
CPT/HCPCS: 99024

== ENCOUNTER → 2024-09-13 10:29 | Outpatient (BNVA) | payer OTHER, SELFPAY | PROVIDERS: PCP Internal Medicine; Visit Provider Orthopaedic Surgery ==

== ENCOUNTER → 2024-09-18 11:00 | Outpatient (BNV) | payer OTHER, SELFPAY | PROVIDERS: Visit Provider Psychiatry & Neurology Psychiatry | DX: F33.2 Major depressive disorder, recurrent severe without psychotic features (principal) | CPT/HCPCS: 90867; 90868 ==

== ENCOUNTER 2024-10-31 15:00 | Outpatient (RCR) | payer OTHER, SELFPAY ==
--- NOTE | 2024-07-04 10:59 | MHC.PT.EP ---
[facility] [place] Office [place] Office [place] Office [address] [place] [address] [phone] F: [phone] F: [phone] F: [phone] F: [phone] Physical Therapy Plan of Care Date of Evaluation: 07/04/24 Date of Surgery: 05/14/2024, 06/28/2024 Diagnosis: s/p R TKA 05/14/2024, and R quad tendon repair 06/28/2024 Assessment: Patient is a 53 year old female presenting to PT s/p R quad tendon repair 06/28/2024 with R TKA 05/14/2024. She presents today with impairments in pain, ROM, hip strength, knee strength, gait mechanics. 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 Clinical presentation today is most consistent with signs and sx associated with s/p R quad tendon repair after TKA and pt will benefit from skilled PT 2 week x 6 weeks to address the following problems and impairments noted upon evaluation: pain, ROM, hip strength, knee strength, gait mechanics. These problems limit the patient with the following functional activities: ambulating, stair negotiation, ADLs, work. The prescribed treatment plan of care is medically necessary. Co-morbidities of depression, anxiety, CAD were identified and taken into considerations of plan of care. Pt was educated on HEP, role of PT, prognosis, POC. Frequency and Duration: The patient will be seen 2 x week x 6 weeks Short Term Goals: Pt will demonstrate ability to perform SLR in 3 weeks. Pt will demonstrate ability to flex her knee to 100 in 3 weeks. Pt will demonstrate hip MMT strength at least 4/5 in 3 weeks. Intermediate Goals: Pt will demonstrate improved LEFI score by 9 points in 6 weeks for improved functional mobility. Pt will demonstrate R knee ROM to 120 in 6 weeks for improved mobility for ADLs. Pt will demonstrate ability to negotiate stairs step over step with min to no pain or imitation in 6 weeks for return to PLOF. Pt will demonstrate ability to ambulate with normal mechanics and no AD in 6 weeks for return to PLOF. Treatment Plan: Modalities to reduce pain, spasms and effusion. Manual therapy to restore motion and function. Therapeutic exercise to improve strength and flexibility. Neuromuscular re-education for posture and balance. Therapeutic activities to return to functional activities of daily living. Electronically signed by: Jacey Schneider, PT, DPT, ATC Please sign and return to therapist. Thank you for your referral.
--- NOTE | 2024-12-09 07:59 | MHC.PT.DC ---
[facility] [place] Office [place] Office [place] Office [address] [place] [address] [phone] F: [phone] F: [phone] F: [phone] F: [phone] Physical Therapy Discharge Report Diagnosis: s/p R TKA 05/14/2024, and R quad tendon repair 06/28/2024 Date of Surgery: 05/14/2024, 06/28/2024 Date of Evaluation: 07/04/24 Date of Discharge: 12/09/24 Treatments to Date: 22 Cancellations to Date: 22 No Shows to Date: 0 Discharge Status: Discharge Summary: Pt has not attended skilled PT in >30 days. Therefore plan to d/c per policy. Electronically signed by: Jacey Schneider, PT, DPT, ATC Please sign and return to therapist. Thank you for your referral.
== END 2024-12-09 07:59 | disposition home or self-care (01) ==
LOC: HO.PTCHIC 15:00
PROVIDERS: PCP Internal Medicine
DX: S76.101D Unspecified injury of right quadriceps muscle, fascia and tendon, subsequent encounter (principal); M62.81 Muscle weakness (generalized); Z96.651 Presence of right artificial knee joint
CPT/HCPCS: 97110; 97112; 97140; 97162; 97530

== ENCOUNTER 2024-11-15 10:41 | Outpatient (AMB) | payer OTHER, SELFPAY ==
--- OUTSIDE RECORDS SUMMARY | 2024-11-15 10:45 | XMS_ITS ---
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) Active confirmed Vital Signs Height 5ft6.5in in 11/28/2023 Weight 223 lbs 11/28/2023 BMI 35.45 kg/m2 11/28/2023 Blood pressure systolic 130 mm Hg 11/28/19 24 Blood pressure diastolic 78 mm Hg 024 Encounters Encounter Location Date Provider Diagnosis [facility] [address] [place] [address] 11/28/2023 Palmira Perica Pain in left foot [...] Notes * Swathi GARCIADOB:1970 (53 yo F)Acc No.[id number]:11/28/2023 Progress Note Patient:?Swathi Garcia Provider:?Palmira Watts DPM :1970???Age:53 Y???Sex:Female D ate:11/28/2023 Address:[address] [place] [address] , [facility] Pcp:Lindsay Otto Subjective: * Chief Complaints: * [...] occassionally , walking. ?Marital status: single. 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 * Medications:?TakingSEROquel DayVigo 10 MG Tablet 1 [...] ray : Foot, left 3V * Procedure Codes:?81398 X-RAY EXAM OF LEFT FOOT 3V, Modifiers: [...] Interfil injection therapy, as well as surgical Stanton/Endoscopic Fasciitomy surgical procedures if needed. Recommendations were [...] Watts, JODY Date:?09/2023 Generated for Samaria clark/Duke/Elijah on:?11/15/2024 10:45 AM EDT History and Physical Notes * HPI (History [...]
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
== END 2024-11-15 11:18 | disposition home or self-care (01) ==
LOC: HO.HOS 10:41
PROVIDERS: Visit Provider Orthopaedic Surgery
DX: Z47.89 Encounter for other orthopedic aftercare (principal); Z96.651 Presence of right artificial knee joint
CPT/HCPCS: 99213

== ENCOUNTER 2024-11-22 08:00 | Outpatient (RCR) | payer OTHER, SELFPAY ==
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
--- NOTE | 2024-09-18 23:05 | HO.TMSDAILY2 ---
TMS Daily Progress Note Daily TMS Progress Note Date of Service: 09/18/24 Week #: 1 Treatment #(07-25): 1 PHQ-9 Pre-Treatment (07-22): 17 PHQ-9 Most Recent (07-22): 16 Reviewed: TMS Tech Note Reviewed Verification: I have reviewed the TMS Scrum Project Manager Note and agree with the contents. The patient remains a candidate to continue TMS treatment per protocol. Assessment and Plan (1) Major depressive disorder, recurrent severe without psychotic features: Status: Acute Plan initial making completed questions answered no difficulty noted tx tolerated bladder stim off during tx
--- NOTE | 2024-09-20 17:24 | P.PNPS_ITS ---
TMS Daily Progress Note Daily TMS Progress Note Date of Service: 09/19/24 Week #: 1 Treatment #(07-25): 2 PHQ-9 Pre-Treatment (07-22): 17 PHQ-9 Most Recent (07-22): 16 Reviewed: TMS Tech Note Reviewed Verification: I have reviewed the TMS Exhibit Carpenter Note and agree with the contents. The patient remains a candidate to continue TMS treatment per protocol. Assessment and Plan (1) Major depressive disorder, recurrent severe without psychotic features: Status: Acute Plan pt tolerating tx has felt somewhat better no c/o side effects
--- NOTE | 2024-09-20 17:28 | P.PNPS_ITS ---
TMS Daily Progress Note Daily TMS Progress Note Date of Service: 09/20/24 Week #: 1 Treatment #(07-25): 3 PHQ-9 Pre-Treatment (07-22): 17 PHQ-9 Most Recent (07-22): 16 Reviewed: TMS Tech Note Reviewed Verification: I have reviewed the TMS Propulsion Generator Repairer Note and agree with the contents. The patient remains a candidate to continue TMS treatment per protocol. Assessment and Plan (1) Major depressive disorder, recurrent severe without psychotic features: Status: Acute Plan pt tolerating tx has felt somewhat emotional
--- NOTE | 2024-10-21 15:37 | P.PNPS_ITS ---
TMS Daily Progress Note Daily TMS Progress Note Date of Service: 09/23/24 Week #: 1 Treatment #(07-25): 4 PHQ-9 Pre-Treatment (07-22): 17 PHQ-9 Most Recent (07-22): 13 Reviewed: TMS Tech Note Reviewed Verification: I have reviewed the TMS Chief Steward/Stewardess Note and agree with the contents. The patient remains a candidate to continue TMS treatment per protocol. Assessment and Plan (1) Major depressive disorder, recurrent severe without psychotic features: Status: Acute Plan Patient generally tolerating treatment MT increased continue plan of care
--- NOTE | 2024-10-21 15:43 | HO.TMSDAILY2 ---
TMS Daily Progress Note Daily TMS Progress Note Date of Service: 09/24/24 Week #: 1 Treatment #(07-25): 5 PHQ-9 Pre-Treatment (07-22): 17 PHQ-9 Most Recent (07-22): 13 Reviewed: TMS Tech Note Reviewed Verification: I have reviewed the TMS Internet Media Planner Note and agree with the contents. The patient remains a candidate to continue TMS treatment per protocol. Assessment and Plan (1) Major depressive disorder, recurrent severe without psychotic features: Status: Acute Plan Does tend to have seasonal depression which she does complain of. MT gradually increasing patient tolerating treatment hopeful regarding response
--- NOTE | 2024-10-21 15:46 | P.PNPS_ITS ---
TMS Daily Progress Note Daily TMS Progress Note Date of Service: 09/26/24 Week #: 2 Treatment #(07-25): 7 PHQ-9 Pre-Treatment (07-22): 17 PHQ-9 Most Recent (07-22): 13 Reviewed: TMS Tech Note Reviewed Verification: I have reviewed the TMS Program/Music Director Note and agree with the contents. The patient remains a candidate to continue TMS treatment per protocol. Assessment and Plan (1) Major depressive disorder, recurrent severe without psychotic features: Status: Acute Plan Patient continues depressed no active SI some difficulty with sleep concerns about feeling overly sedated with Seroquel and weight gain
--- NOTE | 2024-10-21 15:46 | P.PNPS_ITS ---
TMS Daily Progress Note Daily TMS Progress Note Date of Service: 09/25/24 Week #: 2 Treatment #(07-25): 6 PHQ-9 Pre-Treatment (07-22): 17 PHQ-9 Most Recent (07-22): 13 Reviewed: TMS Tech Note Reviewed Verification: I have reviewed the TMS Newspaper Stuffer Note and agree with the contents. The patient remains a candidate to continue TMS treatment per protocol. Assessment and Plan (1) Major depressive disorder, recurrent severe without psychotic features: Status: Acute Plan Patient continues somewhat depressed withdrawn a motivational continue plan of care
--- NOTE | 2024-10-21 15:46 | P.PNPS_ITS ---
TMS Daily Progress Note Daily TMS Progress Note Date of Service: 10/02/24 Week #: 2 Treatment #(07-25): 10 PHQ-9 Pre-Treatment (07-22): 17 PHQ-9 Most Recent (07-22): 13 Reviewed: TMS Tech Note Reviewed Verification: I have reviewed the TMS Tobacco Scrap Sifter Note and agree with the contents. The patient remains a candidate to continue TMS treatment per protocol. Assessment and Plan (1) Major depressive disorder, recurrent severe without psychotic features: Status: Acute Plan Patient continues to feel significantly depressed unhappy with her work situation and living situation and away from her family
--- NOTE | 2024-10-21 15:46 | P.PNPS_ITS ---
TMS Daily Progress Note Daily TMS Progress Note Date of Service: 09/30/24 Week #: 2 Treatment #(07-25): 8 PHQ-9 Pre-Treatment (07-22): 17 PHQ-9 Most Recent (07-22): 13 Reviewed: TMS Tech Note Reviewed Verification: I have reviewed the TMS Automotive Shop Foreman Note and agree with the contents. The patient remains a candidate to continue TMS treatment per protocol. Assessment and Plan (1) Major depressive disorder, recurrent severe without psychotic features: Status: Acute Plan Patient continues depressed no active SI but some periods of intense sadness exacerbated by her birthday over the weekend
--- NOTE | 2024-10-21 15:46 | HO.TMSDAILY2 ---
TMS Daily Progress Note Daily TMS Progress Note Date of Service: 10/01/24 Week #: 2 Treatment #(07-25): 9 PHQ-9 Pre-Treatment (07-22): 17 PHQ-9 Most Recent (07-22): 13 Reviewed: TMS Tech Note Reviewed Verification: I have reviewed the TMS Retail Sales Merchandiser Development Note and agree with the contents. The patient remains a candidate to continue TMS treatment per protocol. Assessment and Plan (1) Major depressive disorder, recurrent severe without psychotic features: Status: Acute Plan Patient continues depressed no active SI but misses her son in [place] expresses discontent living in [place]
--- NOTE | 2024-10-21 15:57 | HO.TMSDAILY2 ---
TMS Daily Progress Note Daily TMS Progress Note Date of Service: 10/03/24 Week #: 3 Treatment #(07-25): 11 PHQ-9 Pre-Treatment (07-22): 17 PHQ-9 Most Recent (07-22): 13 Reviewed: TMS Tech Note Reviewed Verification: I have reviewed the TMS Pneumatic Tool Repairer Note and agree with the contents. The patient remains a candidate to continue TMS treatment per protocol. Assessment and Plan (1) Major depressive disorder, recurrent severe without psychotic features: Status: Acute Plan Patient continues to feel depressed unhappy perplexed at times as why she is feeling this way very weather sensitive
--- NOTE | 2024-10-21 15:57 | HO.TMSDAILY2 ---
TMS Daily Progress Note Daily TMS Progress Note Date of Service: 10/04/24 Week #: 3 Treatment #(07-25): 12 PHQ-9 Pre-Treatment (07-22): 17 PHQ-9 Most Recent (07-22): 13 Reviewed: TMS Tech Note Reviewed Verification: I have reviewed the TMS Paper Tube Grader Note and agree with the contents. The patient remains a candidate to continue TMS treatment per protocol. Assessment and Plan (1) Major depressive disorder, recurrent severe without psychotic features: Status: Acute Plan Patient continues to feel depressed unhappy had difficulty with sleep secondary to orthopedic pain
--- NOTE | 2024-10-21 15:58 | P.PNPS_ITS ---
TMS Daily Progress Note Daily TMS Progress Note Date of Service: 10/07/24 Week #: 3 Treatment #(07-25): 13 PHQ-9 Pre-Treatment (07-22): 17 PHQ-9 Most Recent (07-22): 11 Reviewed: TMS Tech Note Reviewed Verification: I have reviewed the TMS Florist'S Decorator Note and agree with the contents. The patient remains a candidate to continue TMS treatment per protocol. Assessment and Plan (1) Major depressive disorder, recurrent severe without psychotic features: Status: Acute Plan Continues to deal with anergic depression
--- NOTE | 2024-10-21 15:58 | HO.TMSDAILY2 ---
TMS Daily Progress Note Daily TMS Progress Note Date of Service: 10/08/24 Week #: 3 Treatment #(07-25): 14 PHQ-9 Pre-Treatment (07-22): 17 PHQ-9 Most Recent (07-22): 11 Reviewed: TMS Tech Note Reviewed Verification: I have reviewed the TMS Composer Teaching Artist Note and agree with the contents. The patient remains a candidate to continue TMS treatment per protocol. Assessment and Plan (1) Major depressive disorder, recurrent severe without psychotic features: Status: Acute Plan Continues to deal with seems more motivated less anergic
--- NOTE | 2024-10-21 16:10 | P.PNPS_ITS ---
TMS Daily Progress Note Daily TMS Progress Note Date of Service: 10/10/24 Week #: 4 Treatment #(07-25): 16 PHQ-9 Pre-Treatment (07-22): 17 PHQ-9 Most Recent (07-22): 11 Reviewed: TMS Tech Note Reviewed Verification: I have reviewed the TMS Check Cashier Note and agree with the contents. The patient remains a candidate to continue TMS treatment per protocol. Assessment and Plan (1) Major depressive disorder, recurrent severe without psychotic features: Status: Acute Plan some improvement noted tolerating tx
--- NOTE | 2024-10-21 16:10 | P.PNPS_ITS ---
TMS Daily Progress Note Daily TMS Progress Note Date of Service: 10/17/24 Week #: 4 Treatment #(07-25): 18 PHQ-9 Pre-Treatment (07-22): 17 PHQ-9 Most Recent (07-22): 11 Reviewed: TMS Tech Note Reviewed Verification: I have reviewed the TMS Wiring Inspector Note and agree with the contents. The patient remains a candidate to continue TMS treatment per protocol. Assessment and Plan (1) Major depressive disorder, recurrent severe without psychotic features: Status: Acute Plan has not been feeling ok not related to tms cont plan of care
--- NOTE | 2024-10-21 16:10 | HO.TMSDAILY2 ---
TMS Daily Progress Note Daily TMS Progress Note Date of Service: 10/11/24 Week #: 4 Treatment #(07-25): 17 PHQ-9 Pre-Treatment (07-22): 17 PHQ-9 Most Recent (07-22): 11 Reviewed: TMS Tech Note Reviewed Verification: I have reviewed the TMS Fabrication Department Supervisor Note and agree with the contents. The patient remains a candidate to continue TMS treatment per protocol. Assessment and Plan (1) Major depressive disorder, recurrent severe without psychotic features: Status: Acute Plan pt with some insomnia has been more social no c/o side effects
--- NOTE | 2024-10-21 16:10 | HO.TMSDAILY2 ---
TMS Daily Progress Note Daily TMS Progress Note Date of Service: 10/18/24 Week #: 4 Treatment #(07-25): 19 PHQ-9 Pre-Treatment (07-22): 17 PHQ-9 Most Recent (07-22): 11 Reviewed: TMS Tech Note Reviewed Verification: I have reviewed the TMS Group Fitness Instructor Note and agree with the contents. The patient remains a candidate to continue TMS treatment per protocol. Assessment and Plan (1) Major depressive disorder, recurrent severe without psychotic features: Status: Acute Plan Continue plan of care patient has been not feeling well physically which is affecting her mentally otherwise tolerating treatment
--- NOTE | 2024-10-21 21:11 | P.PNPS_ITS ---
TMS Daily Progress Note Daily TMS Progress Note Date of Service: 10/21/24 Week #: 4 Treatment #(07-25): 20 PHQ-9 Pre-Treatment (07-22): 17 PHQ-9 Most Recent (07-22): 13 Reviewed: TMS Tech Note Reviewed Verification: I have reviewed the TMS Carton Making Machine Operator Note and agree with the contents. The patient remains a candidate to continue TMS treatment per protocol. Assessment and Plan (1) Major depressive disorder, recurrent severe without psychotic features: Status: Acute Plan Unclear if physical symptoms not related to TMS are interfering with improvement
--- NOTE | 2024-10-24 12:26 | P.PNPS_ITS ---
TMS Daily Progress Note Daily TMS Progress Note Date of Service: 10/21/24 Week #: 4 Treatment #(-30): 20 PHQ-9 Pre-Treatment (1-): 17 PHQ-9 Most Recent (-): 13 RACHEAL-7 Pre-Treatment (0-21): 10 RACHEAL-7 Most Recent (0-21): 8 CGI-I Most Recent: 0 = Not Assessed Reviewed: TMS Tech Note Reviewed Verification: I have reviewed the TMS Gate Cutter Note and agree with the contents. The patient remains a candidate to continue TMS treatment per protocol. Assessment and Plan (1) Major depressive disorder, recurrent severe without psychotic features: Status: Acute Plan continue with current TMS tx plan
--- NOTE | 2024-10-24 12:29 | HO.TMSDAILY2 ---
TMS Daily Progress Note Daily TMS Progress Note Date of Service: 10/22/24 Week #: 4 Treatment #(07-25): 21 PHQ-9 Pre-Treatment (1-): 17 PHQ-9 Most Recent (07-22): 13 RACHEAL-7 Pre-Treatment (0-21): 10 RACHEAL-7 Most Recent (0-21): 8 CGI-I Most Recent: 0 = Not Assessed Reviewed: TMS Tech Note Reviewed Verification: I have reviewed the TMS Commissary Helper Note and agree with the contents. The patient remains a candidate to continue TMS treatment per protocol. Assessment and Plan (1) Major depressive disorder, recurrent severe without psychotic features: Status: Acute Plan continue current tx plan
--- NOTE | 2024-10-29 23:14 | P.PNPS_ITS ---
TMS Daily Progress Note Daily TMS Progress Note Date of Service: 10/29/24 Week #: 5 Treatment #(-30): 26 PHQ-9 Pre-Treatment (-): 17 PHQ-9 Most Recent (07-22): 8 RACHEAL-7 Pre-Treatment (0-21): 10 RACHEAL-7 Most Recent (0-21): 8 CGI-I Most Recent: 0 = Not Assessed Reviewed: TMS Tech Note Reviewed Verification: I have reviewed the TMS Supervisor Waterproofing Note and agree with the contents. The patient remains a candidate to continue TMS treatment per protocol. Assessment and Plan (1) Major depressive disorder, recurrent severe without psychotic features: Status: Acute Plan continue current tx plan
--- NOTE | 2024-11-04 12:51 | HO.TMSDAILY2 ---
TMS Daily Progress Note Daily TMS Progress Note Date of Service: 11/04/24 Week #: 6 Treatment #(-): 30 PHQ-9 Pre-Treatment (-): 17 PHQ-9 Most Recent (07-22): 1 RACHEAL-7 Pre-Treatment (0-21): 10 RACHEAL-7 Most Recent (0-21): 9 CGI-I Most Recent: 0 = Not Assessed Reviewed: TMS Tech Note Reviewed Verification: I have reviewed the TMS Vacuum Pan Operator Note and agree with the contents. The patient remains a candidate to continue TMS treatment per protocol. Assessment and Plan (1) Major depressive disorder, recurrent severe without psychotic features: Status: Acute Plan continue current TMS tx plan
--- NOTE | 2024-11-18 14:18 | HO.TMSDAILY2 ---
TMS Daily Progress Note Daily TMS Progress Note Date of Service: 10/23/24 Week #: 5 Treatment #(-): 22 PHQ-9 Pre-Treatment (-): 17 PHQ-9 Most Recent (07-22): 13 RACHEAL-7 Pre-Treatment (0-21): 10 RACHEAL-7 Most Recent (0-21): 9 CGI-I Most Recent: 0 = Not Assessed Reviewed: TMS Tech Note Reviewed Verification: I have reviewed the TMS Training And Development Coordinator Note and agree with the contents. The patient remains a candidate to continue TMS treatment per protocol. Assessment and Plan (1) Major depressive disorder, recurrent severe without psychotic features: Status: Acute Plan Patient with some improvement tolerating treatment MT at 120%
--- NOTE | 2024-11-18 14:25 | P.PNPS_ITS ---
TMS Daily Progress Note Daily TMS Progress Note Date of Service: 10/24/24 Week #: 5 Treatment #(-30): 23 PHQ-9 Pre-Treatment (1-): 17 PHQ-9 Most Recent (07-22): 13 RACHEAL-7 Pre-Treatment (0-21): 10 RACHEAL-7 Most Recent (0-21): 9 CGI-I Most Recent: 0 = Not Assessed Reviewed: TMS Tech Note Reviewed Verification: I have reviewed the TMS Truckload Owner Operator Note and agree with the contents. The patient remains a candidate to continue TMS treatment per protocol. Assessment and Plan (1) Major depressive disorder, recurrent severe without psychotic features: Status: Acute Plan Patient with some improvement tolerating treatment MT at 120%
--- NOTE | 2024-11-18 14:27 | P.PNPS_ITS ---
TMS Daily Progress Note Daily TMS Progress Note Date of Service: 10/25/24 Week #: 5 Treatment #(-30): 24 PHQ-9 Pre-Treatment (1-): 17 PHQ-9 Most Recent (07-22): 13 RACHEAL-7 Pre-Treatment (0-21): 10 RACHEAL-7 Most Recent (0-21): 9 CGI-I Most Recent: 0 = Not Assessed Reviewed: TMS Tech Note Reviewed Verification: I have reviewed the TMS Associate Professor Of Mathematics Note and agree with the contents. The patient remains a candidate to continue TMS treatment per protocol. Assessment and Plan (1) Major depressive disorder, recurrent severe without psychotic features: Status: Acute Plan Patient with some improvement tolerating treatment MT at 120%
--- NOTE | 2024-11-18 15:16 | P.PNPS_ITS ---
TMS Daily Progress Note Daily TMS Progress Note Date of Service: 10/30/24 Week #: 6 Treatment #(-): 27 PHQ-9 Pre-Treatment (1-): 17 PHQ-9 Most Recent (07-22): 8 RACHEAL-7 Pre-Treatment (0-21): 10 RACHEAL-7 Most Recent (0-21): 9 CGI-I Most Recent: 0 = Not Assessed Reviewed: TMS Tech Note Reviewed Verification: I have reviewed the TMS Pharmacist In Charge Note and agree with the contents. The patient remains a candidate to continue TMS treatment per protocol. Assessment and Plan (1) Major depressive disorder, recurrent severe without psychotic features: Status: Acute Plan Patient with some improvement tolerating treatment MT at 120% improved PHQ-9 noted ongoing
--- NOTE | 2024-11-18 15:16 | P.PNPS_ITS ---
TMS Daily Progress Note Daily TMS Progress Note Date of Service: 10/31/24 Week #: 6 Treatment #(-30): 28 PHQ-9 Pre-Treatment (-): 17 PHQ-9 Most Recent (07-22): 8 RACHEAL-7 Pre-Treatment (0-21): 10 RACHEAL-7 Most Recent (0-21): 9 CGI-I Most Recent: 0 = Not Assessed Reviewed: TMS Tech Note Reviewed Verification: I have reviewed the TMS Entry Level Receptionist Note and agree with the contents. The patient remains a candidate to continue TMS treatment per protocol. Assessment and Plan (1) Major depressive disorder, recurrent severe without psychotic features: Status: Acute Plan Patient with some improvement tolerating treatment MT at 120% improved PHQ-9 noted ongoing
--- NOTE | 2024-11-18 15:16 | P.PNPS_ITS ---
TMS Daily Progress Note Daily TMS Progress Note Date of Service: 10/29/24 Week #: 6 Treatment #(-30): 26 PHQ-9 Pre-Treatment (-): 17 PHQ-9 Most Recent (07-22): 8 RACHEAL-7 Pre-Treatment (0-21): 10 RACHEAL-7 Most Recent (0-21): 9 CGI-I Most Recent: 0 = Not Assessed Reviewed: TMS Tech Note Reviewed Verification: I have reviewed the TMS Bullet Lubricating Machine Operator Note and agree with the contents. The patient remains a candidate to continue TMS treatment per protocol. Assessment and Plan (1) Major depressive disorder, recurrent severe without psychotic features: Status: Acute Plan Patient with some improvement tolerating treatment MT at 120% improved PHQ-9 noted ongoing
--- NOTE | 2024-11-18 15:16 | P.PNPS_ITS ---
TMS Daily Progress Note Daily TMS Progress Note Date of Service: 10/28/24 Week #: 5 Treatment #(-): 25 PHQ-9 Pre-Treatment (1-): 17 PHQ-9 Most Recent (07-22): 8 RACHEAL-7 Pre-Treatment (0-21): 10 RACHEAL-7 Most Recent (0-21): 9 CGI-I Most Recent: 0 = Not Assessed Reviewed: TMS Tech Note Reviewed Verification: I have reviewed the TMS Forklift Truck Operator Note and agree with the contents. The patient remains a candidate to continue TMS treatment per protocol. Assessment and Plan (1) Major depressive disorder, recurrent severe without psychotic features: Status: Acute Plan Patient with some improvement tolerating treatment MT at 120% improved PHQ-9 noted
--- NOTE | 2024-11-18 15:16 | P.PNPS_ITS ---
TMS Daily Progress Note Daily TMS Progress Note Date of Service: 11/01/24 Week #: 6 Treatment #(-): 29 PHQ-9 Pre-Treatment (-): 17 PHQ-9 Most Recent (07-22): 8 RACHEAL-7 Pre-Treatment (0-21): 10 RACHEAL-7 Most Recent (0-21): 9 CGI-I Most Recent: 0 = Not Assessed Reviewed: TMS Tech Note Reviewed Verification: I have reviewed the TMS Dozer Operator Note and agree with the contents. The patient remains a candidate to continue TMS treatment per protocol. Assessment and Plan (1) Major depressive disorder, recurrent severe without psychotic features: Status: Acute Plan Continue plan of care tolerating treatment. Some dissatisfaction noted with aspects of her life
--- NOTE | 2024-11-18 15:39 | HO.TMSDAILY2 ---
TMS Daily Progress Note Daily TMS Progress Note Date of Service: 11/04/24 Week #: 6 Treatment #(-30): 30 PHQ-9 Pre-Treatment (-): 17 PHQ-9 Most Recent (-): 1 RACHEAL-7 Pre-Treatment (0-21): 10 RACHEAL-7 Most Recent (0-21): 9 CGI-I Most Recent: 0 = Not Assessed Reviewed: TMS Tech Note Reviewed Verification: I have reviewed the TMS Java J2Ee Lead Note and agree with the contents. The patient remains a candidate to continue TMS treatment per protocol. Assessment and Plan (1) Major depressive disorder, recurrent severe without psychotic features: Status: Acute Plan Continue plan of care tolerating treatment. Significant improvement noted
--- NOTE | 2024-11-18 15:39 | HO.TMSDAILY2 ---
TMS Daily Progress Note Daily TMS Progress Note Date of Service: 11/11/24 Week #: 7 Treatment #(-): 31 PHQ-9 Pre-Treatment (1-): 17 PHQ-9 Most Recent (-): 5 RACHEAL-7 Pre-Treatment (0-21): 10 RACHEAL-7 Most Recent (0-21): 9 CGI-I Most Recent: 0 = Not Assessed Reviewed: TMS Tech Note Reviewed Verification: I have reviewed the TMS Business School Dean Note and agree with the contents. The patient remains a candidate to continue TMS treatment per protocol. Assessment and Plan (1) Major depressive disorder, recurrent severe without psychotic features: Status: Acute Plan Continue plan of care tolerating treatment. Significant improvement noted
--- NOTE | 2024-11-18 15:39 | HO.TMSDAILY2 ---
TMS Daily Progress Note Daily TMS Progress Note Date of Service: 11/13/24 Week #: 7 Treatment #(-): 32 PHQ-9 Pre-Treatment (-): 17 PHQ-9 Most Recent (07-22): 5 RACHEAL-7 Pre-Treatment (0-21): 10 RACHEAL-7 Most Recent (0-21): 9 CGI-I Most Recent: 0 = Not Assessed Reviewed: TMS Tech Note Reviewed Verification: I have reviewed the TMS Correction Officer [facility] Note and agree with the contents. The patient remains a candidate to continue TMS treatment per protocol. Assessment and Plan (1) Major depressive disorder, recurrent severe without psychotic features: Status: Acute Plan Continue plan of care tolerating treatment. Significant improvement noted
--- NOTE | 2024-11-18 15:39 | HO.TMSDAILY2 ---
TMS Daily Progress Note Daily TMS Progress Note Date of Service: 11/15/24 Week #: 7 Treatment #(-30): 33 PHQ-9 Pre-Treatment (1-): 17 PHQ-9 Most Recent (-): 5 RACHEAL-7 Pre-Treatment (0-21): 10 RACHEAL-7 Most Recent (0-21): 9 CGI-I Most Recent: 0 = Not Assessed Reviewed: TMS Tech Note Reviewed Verification: I have reviewed the TMS Curing Bin Operator Note and agree with the contents. The patient remains a candidate to continue TMS treatment per protocol. Assessment and Plan (1) Major depressive disorder, recurrent severe without psychotic features: Status: Acute Plan Continue plan of care tolerating treatment. Significant improvement noted
== END 2024-11-22 13:00 | disposition home or self-care (01) ==
LOC: HO.PTMS 08:00
PROVIDERS: Visit Provider Clinical Nurse Specialist Psychiatric/Mental Health
DX: F33.2 Major depressive disorder, recurrent severe without psychotic features (principal)
CPT/HCPCS: 90867; 90868

== ENCOUNTER 2025-03-17 15:19 | Emergency (ER) | payer OTHER, SELFPAY ==
[2025-03-17 15:22] VITALS: BP 119/67; PULSE 90; RESP 16; TEMP 36.4; O2SAT 96; BMI 28.2
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
[2025-03-17 18:29] VITALS: BP 140/58; PULSE 69; RESP 16; TEMP 36.4; O2SAT 99
--- OUTSIDE RECORDS SUMMARY | 2025-03-17 18:29 | XMS_ITS | Encounter Summary ---
Author Organization [facility] Address [address] [place] [id number] Phone Care Team Providers Care Plant Facilities Technician Name Role Phone Lindsay Otto MD Primary Care Provider [phone] Ankit Khoury MD Unavailable [phone] Encounter Details Date Type Department Care Team (Late st Contact Info) Description 02/19/2021 Procedure Pass [facility] - [address] [place] [address] Social History Tobacco Use Types Packs/Day Years Used Date Smoking Tobacco: Former Cigarettes Q uit: 01/25/2020 Smokeless Tobacco: Never Alcohol Use Standard Drinks/Week Comments Yes 6 (1 standard drink = 0.6 oz pur e alcohol) social-6 per week Child or Family Care Answer Date Record ed Do you have problems with on e of the following making it difficult for you to work, study, or receive health care? No 02/12/2021 Education Answer Date Recorded Are you interested in help w ith more adult education (for example, completing high school, GED, job training, learning the [place] language, technical skills, or developing parenting skills)? No 02/12/2021 Are you concerned about learning? Not on file 02/12/2021 Not on file 02/12/2021 Not on file 02/12/2021 Food Answer Date Recorded Within the past 6 months we worried whether our food would run out before we got money to buy more. Never True 02/12/2021 Within the past 6 months the food we bought just didn't last and we didn't have enough money to get more. Never True Paying for Meds Answer Date Recorded Do you have trouble paying for medicines? No 02/12/2021 Paying Utility Bills Answer Date Record ed Do you have trouble paying your heating or elect ricity bill? No 02/12/2021 Transportation Answer Date Recorded Has the lack of transportati on kept you from medical appointments or from getting medications? No 02/12/2021 Comments No Sex and Gender Information Value Date Recorded Sex Assigned at Female 01/29/2018 8:39 AM EDT Legal Sex Female 11:33 AM EDT Gender Identity Female 01/29/2018 8:39 AM EDT Sexual Orientation Straight 01/29/2018 8: 39 AM EDT Occupation Industry Job Start Date Job End Date [employer] Not on file Not on file Not on file documented as of this encounter Plan of Treatment Upcoming Encounters Date Type Department Care Team (Late st Contact Info) Description 03/19/2025 8:45 AM EDT Office Visit [facility] [address] [place] [address] Lindsay Otto MD [address] [place] [address], [address] [place] [id number] 03/24/2025 9:40 AM EDT Office Visit [facility] [address] [place] [address] [address] Floor, [address] [place] [address] Alexis Acosta MD, [place] [facility], [address] [address] 01/05/2026 2:30 PM EDT Office Visit [facility] [address] [place] [address] Lindsay Otto MD [address] [place] [address], [address] [place] [id number] documented as of this encounter Visit Diagnoses Not on filedocumented in this encounter Additional Health Concerns Infection Onset Date Last Indicated Resolved Time CoV-Risk 07/14/2021 07/14/2021 07/24/2021 1:22 AM EST Assessment Noted Time A Body Mass Index follow-up plan has been documented for the patient 01/27/2020 10:14 PM EDT PHQ-2 Depression Total Score: 2 02/13/20 10:10 AM EDT documented as of this encounter Care Teams Plant Facilities Technician Relationship Specialty Start Date End Date Lindsay Otto MD [address] [place] [address], [address] [place] [address] [email or web address] PCP - General Internal Medicine 01/29/18 Ankit Khoury MD [address] [phone] [email or web address] Urology 02/19/21 documented as of this encounter Additional Source Comments The information contained in this document represents components of the legal health record. It is not the complete legal health record.[facility]
--- OUTSIDE RECORDS SUMMARY | 2025-03-17 18:29 | XMS_ITS | Clinical Summary ---
Author Organization [facility] Address [address] [address] Phone Care Team Providers Care Mental Health Orderly Name Role Phone Lindsay Otto MD Primary Care Provider [phone] Ankit Khoury MD Unavailable [phone] Allergies Active Allergy Reactions Criticality Noted Date Comments Zolpidem Low 07/16/2019 Known side effect--not an allergy--Sleep walking Venlafaxine 07/15/2019 Not an allergy --not effective Escitalopram Oxalate 07/16/2019 Not an allergy--Weight gain Paroxetine Hcl 07/16/2019 Not an allergy--ineffective Medications multivit with minerals/lutein (MULTIVITAMIN 50 PLUS ORAL) Daily, 0 Refills, Maintenance, 05/24/21 13:26:00 EST, Partial fill upon patient request if the prescription is for a schedule II opioid drug. Active clobetasol (TEMOVATE) 0.05 % external solution as needed. 022 Active betamethasone dipropionate 0.05 % ointment Apply topically 2 (two) times a day. APPLY TO AFFECTED AREA 45 g 3 024 Active QUEtiapine (SEROQUEL) 25 MG tabletIndications :Sleep disorder Take 3 tablets (75 mg total) by mouth nightly at bedtime. 270 tablet 3 024 Active tiZANidine (ZANAFLEX) 4 MG tabletIndications :Muscle spasm TAKE 1 TABLET EVERY 8 HOURS NEEDED 270 tablet 3 024 Active LORazepam (ATIVAN) 2 MG tablet 1 tablet at bedtime as needed Orally Once a day Active magnesium 250 mg Tab Take by mouth. Activ e COLLAGEN MISC by Miscellaneous route. Collagen, keratin, biotin gummy Active vitamin D3-vitamin K2 25 mcg (1,000 unit)-90 mcg ODT disintegrating tablet Take by mouth. With K2 Active lansoprazole (PREVACID) 30 MG capsuleIndication s:Acid reflux TAKE 1 CAPSULE DAILY 90 capsule 3 025 Active ciclopirox (CICLODAN) 0.77 % cream APPLY TWICE DAILY TO AFFECTED AREAS NEEDED Active progesterone (PROMETRIUM) 200 mg capsule Active tirzepatide, weight loss, (ZEPBOUND) 2.5 mg/0.5 mL subcutaneous penIndications:Cl ass 2 severe obesity with serious comorbidity and body mass index (BMI) of 38.0 to 38.9 in adult, unspecified obesity type,VON (obstructive sleep apnea) Inject 0.5 mL (2.5 mg total) under the skin every 7 days. 2 mL 1 025 Active mupirocin (BACTROBAN) 2 % ointmentIndicatio ns:Anal itching Apply topically 3 (three) times a day. 22 g Active buPROPion (WELLBUTRIN XL) 300 MG ER 24 hr tabletIndications :Anxiety,Depressi on, unspecified depression type Take 1 tablet (300 mg total) by mouth daily. 90 tablet 3 025 Active traZODone (DESYREL) 100 MG tablet Take 3 tablets (300 mg total) by mouth nightly at bedtime. 270 tablet 3 025 Active eszopiclone (LUNESTA) 3 mg tabletIndications :Sleep disorder Take 1 tablet (3 mg total) by mouth nightly at bedtime. 30 tablet 2 025 Active acetaminophen (TYLENOL) 500 MG tablet TAKE 2 TABLETS BY MOUTH EVERY 6 HOURS NEEDED FOR PAIN (SPECIFIC LOCATION IN COMMENTS). 84 tablet 2 025 Active acetaminophen (TYLENOL) 500 MG tablet TAKE 2 TABLETS BY MOUTH EVERY 6 HOURS NEEDED FOR PAIN (SPECIFIC LOCATION IN COMMENTS). 84 tablet 2 025 2024 Discontinued Active Problems Problem Noted Date Diagnosed Date Pre-operative cardiovascular examination 024 Assessment & Plan (04/21/2024 9:04 PM EDT): Her EKG is normal. She does not require any further perioperative risk stratification at this time. She can continue her medications as they are through the perioperative period. Primary osteoarthritis of right knee 04/21/2024 Assessment & Plan (04/21/2024 8:57 PM EDT): She is preparing for right knee replacement surgery. She is hoping for improved mobility post surgery to help with weight loss. PMB (postmenopausal bleeding) 04/02/2024 Postmenopausal bleeding 01/09/2024 Assessment & Plan (01/09/2024 8:57 AM EDT): Discussed evaluation of postmenopausal bleeding. Pap smear done in the office today. Referral to [facility] placed. Advised that I defer ordering of pelvic US to them as they can schedule US and hysteroscopy at the same time. Discussed differential of postmenopausal bleeding can include endometrial abnormalities, cervical abnormalities, or other abnormalities of the tract. She has not been on HRT. Alcohol abuse 12/17/2023 Assessment & Plan (12/17/2023 2:36 PM EDT): We discussed her recent misuse of alcohol. She understands the potential danger of mixing alcohol with her medications. We discussed that this has not been a pattern in the past. Will need to further discuss if this is an ongoing problem. Muscle spasm 10/10/2023 RUQ abdominal pain 02/23/2023 Assessment & Plan (02/23/2023 11:35 AM EDT): Given her weight loss after bariatric surgery, I am concerned for possible gallstones. Will await ultrasound results. Sleep disorder 06/28/2021 Assessment & Plan (01/11/2024 10:51 AM EDT): Will increase her trazodone to 150 mg to help with sleep maintenance. We discussed that while she is titrating medications that she has nights of decreased or interrupted sleep that can impair her work performance. She has requested intermittent leave so that she can take the time to rest when needed. Assessment & Plan (12/17/2023 2:37 PM EDT): This is a chronic issue and she has had difficulty with this despite the use of many different medications. Assessment & Plan (11/02/2023 9:47 PM EDT): Her sleep continues to be disrupted and she is now needing Seroquel. This leads to daytime sleepiness which is dangerous on her commute. Working from her home would allow her to continue working without having to take time off to manage her sleepiness. Assessment & Plan (07/31/2023 9:16 AM EST): She continues to have difficulty with her sleep and her medications are not consistent. We discussed that her sleep is likely contributing to her difficulty with her short term memory and may also be contributing to her depression. She has looked into different medications. Will do trial of diazepam. If no effect, could try doxepin. Assessment & Plan (08/16/2022 7:33 PM EST): Dayvigo is helping with her sleep onset. Will continue. Assessment & Plan (07/13/2022 12:51 PM EST): She has tried many medications in the past which have proven to be ineffective. She read about Quviviq and wanted to try this. She did not have success with Belsomra in the past. We discussed that Quviviq and Dayvigo are in the same class of medications. Dayvigo appears to be on the formulary for her insurance. Will give this a trial. If unsuccessful, will refer back to sleep medicine. Assessment & Plan (04/10/2022 10:16 PM EDT): Will refill Sonata to help with her sleep onset. Assessment & Plan (06/28/2021 2:29 PM EST): She has had chronic issues with sleep onset and maintenance. Klonipin and Ativan are no longer effective for her. Trazodone has not been helpful in the past. We discussed doxepin but I would avoid this given that it can promote weight gain. Will do trial of zaleplon. She will continue with her other behavioral measures to help with sleep. Class 2 severe obesity with serious comorbidity and body mass index (BMI) of 36.0 to 36.9 in adult 06/28/2021 Assessment & Plan (01/05/2025 8:59 PM EDT): She would like to try for GLP-1 therapy again. Given her comorbid VON, Zepbound would be the preferred option. Orders: tirzepatide, weight loss, (ZEPBOUND) 2.5 mg/0.5 mL subcutaneous pen; Inject 0.5 mL (2.5 mg total) under the skin every 7 days. Assessment & Plan (04/21/2024 8:54 PM EDT): Stable. This can impair wound healing. This will need to be monitored after surgery. Assessment & Plan (11/02/2023 9:55 PM EDT): She has regained weight with the addition of Seroquel. She does not feel that she is in a position to stop it at this time. Will continue to monitor. Assessment & Plan (10/10/2023 10:01 AM EDT): We discussed her concern of weight gain since she has started Seroquel for sleep. Her weight has been a concern of hers for some time. She has had bariatric surgery in the past and she monitors her diet and exercises regularly. She has had an increase in activity since returning to the office and she still has noted weight gain. Seroquel is a contributor to this. She is using this to help improve her sleep. She has been on phentermine in the past without sustained results. She was also on bupropion in the past as well. We discussed the benefits that she may receive from GLP-1RA medications and potential side effects as well. We discussed that a prior authorization is needed. We also discussed difficulty with availability of medication at this time. Discussed titration, goal is to move up monthly to goal of 2.4 mg weekly. Advised her to call us after 3rd dose to write prescription for next month at next higher dose. Assessment & Plan (07/31/2023 9:14 AM EST): She has regained some weight and is worried that she will regain weight. We previously tried to get GLP-1 therapy but was unable to start due to shortages. We discussed that there are still shortages. Will continue to monitor. Assessment & Plan (04/10/2022 10:15 PM EDT): She is scheduled for gastric sleeve next Monday. Assessment & Plan (08/27/2021 10:07 PM EST): She has worked with a bariatric surgeon but she would like to avoid this if possible. She has tried several programs and phentermine in the past. We discussed trying Wegovy. Rx sent. Assessment & Plan (06/28/2021 2:30 PM EST): She is involved in a weight loss program but she would like to avoid surgery if possible. She has done well with phentermine in the past. She does not have hypertension. Will start phentermine and follow up at her CPE next month. VON (obstructive sleep apnea) 02/16/2020 Assessment & Plan (01/05/2025 8:59 PM EDT): As above. Orders: tirzepatide, weight loss, (ZEPBOUND) 2.5 mg/0.5 mL subcutaneous pen; Inject 0.5 mL (2.5 mg total) under the skin every 7 days. Assessment & Plan (04/21/2024 8:53 PM EDT): Stable. She may need to be weaned to CPAP or BiPap when in recovery from anesthesia. Assessment & Plan (10/10/2023 9:40 AM EDT): We would expect improvement in her sleep apnea with weight loss. Assessment & Plan (08/16/2022 7:41 PM EST): She would like to lose some more weight and then get a follow up sleep study to see if she can come off CPAP. Assessment & Plan (07/13/2022 12:51 PM EST): She will want to follow up on this as she loses weight as she hopes to be able to come off CPAP. Assessment & Plan (06/28/2021 2:30 PM EST): Her CPAP is working well. Milia 12/11/2019 Seborrheic dermatitis 12/11/2019 Seborrheic keratoses 12/11/2019 Other chest pain 05/16/2018 Assessment & Plan (12/17/2023 2:46 PM EDT): Her EKG is without concern for acute pathology. Will monitor. Assessment & Plan (05/20/2018 9:37 PM EST): Patient with chest pain that appears to be costochondritis and also some element of myofascial pain from the back does not appear to be cardiac no need for cardiogram no need for PE is excellent O2 sats of negative leg exam. Did recommend moist heat to the chest anti-inflammatory as tolerated and moist heat massage upper back consider chiropractic or physical therapy or injection Right knee pain 04/25/2018 Smoker 04/11/2018 Acid reflux Anxiety Assessment & Plan (12/17/2023 2:45 PM EDT): She has had increased anxiety with changes in her household. This should be an acute worsening and not chronic, no change to medication at this time. Assessment & Plan (11/02/2023 9:40 PM EDT): She has had a hard time with her transition in to the office. With her interrupted sleep and difficulty with medication changes, she feels that remaining at home will allow her flexibility to manage this. Assessment & Plan (08/16/2022 7:39 PM EST): She has reduced her bupropion and has noted improvement in her short term memory loss. She also tried to reduce lorazepam. She has found that she has not been able to reduce this. Will continue to monitor. Depression Assessment & Plan (11/02/2023 9:41 PM EDT): As noted. Assessment & Plan (10/10/2023 10:26 AM EDT): She is working with a psychiatrist to adjust medications. She is now off bupropion as she felt it was disturbing her sleep. She has started Seroquel which is helping with sleep but has contributed to weight gain. She was also prescribed Zoloft which she has not started yet. She is aware of the possibilities of her psychiatric medications contributing to weight gain which she has noted since starting Seroquel. Will monitor closely. Assessment & Plan (07/31/2023 12:35 PM EST): She continues to have difficulty with her depression and she feels Wellbutrin is not working. She is working to find care through her EAP. Assessment & Plan (04/10/2022 10:16 PM EDT): She has done well on bupropion. Will continue. Incontinence of urine Overview (04/11/2018): has interstim Right carpal tunnel syndrome Encounters Date Type Department Care Team Description 02/15/[address] [place] [address] Lindsay Otto MD Medication Refill 02/11/[address] [place] [address] Lindsay Otto MD Forms & Paperwork 02/06/2025 7:05 AM EDT - 02/06/2025 11:59 PM EDT Hospital Encounter [facility] [address] [place] [address] [place] [address] Lindsay Otto MD Discharge Disposition: Home or Self Care 01/31/[address] [place] [address] Lindsay Otto MD Forms & Paperwork 01/06/[address] [place] [address] Lindsay Otto MD Med Change Request 01/03/2025 1:15 PM EDT Office Visit [address] [place] [address] Lindsay Otto MD Encounter for general adult medical examination with abnormal findings (Primary Dx); Class 2 severe obesity with serious comorbidity and body mass index (BMI) of 38.0 to 38.9 in adult, unspecified obesity type; VON (obstructive sleep apnea); Throat clearing; Dysuria; Anal itching 12/25/[address] [place] [address] Lindsay Otto MD Medication Question from Last 3 Months Immunizations Immunization Administration Dates Next Due Tdap 03/11/2013 Zoster recombinant 07/13/2022,11/09/2021 Family History Medical History Relation Comments Breast cancer Maternal Aunt Diabetes Maternal Aunt Diabetes Maternal Grandmother Oral cancer Mother Other Mother breast tumor Cancer Unspecified Glaucoma Unspecified Hypertension Unspecified Relation Status Comments Father Alive Maternal Aunt Maternal Grandmother Mother Unspecified Social History Tobacco Use Types Packs/Day Years Used Date Smoking Tobacco: Some Days Cigarettes 0.3 14 Started: 01/24/2006; Last attempted to quit: 01/25/2020 Smokeless Tobacco: Never Tobacco Cessation:Ready to Q uit: Yes; Counseling Given: No Alcohol Use Standard Drinks/Week Comments Not Currently 0 (1 standard drink = 0.6 oz pur e alcohol) Home Health Assessment: Transportation Answer Date Recorded Lack of Transportation (Medical) No 05/28/2024 Lack of Transportation (Non-Medical) No 05/28/2024 Patient Unable or Declines to Respond No 05/28/2024 Child or Family Care Answer Date Record ed Do you have problems with on e of the following making it difficult for you to work, study, or receive health care? No 10/08/2024 Education Answer Date Recorded Are you interested in help w ith more adult education (for example, completing high school, GED, job training, learning the [place] language, technical skills, or developing parenting skills)? No 10/08/2024 Are you concerned about learning? Not on file 10/08/2024 No 10/08/2024 Yes 10/08/2024 Food Answer Date Recorded Within the past 6 months we worried whether our food would run out before we got money to buy more. Never True 10/08/2024 Within the past 6 months the food we bought just didn't last and we didn't have enough money to get more. Never True Residential Stability Answer Date Recor ded What is your housing situation today? I have edy sing 10/08/2024 How many times have you move d in the past 12 months? Zero (I did not move) 10/08/2024 Paying for Meds Answer Date Recorded Do you have trouble paying for medicines? No 10/08/2024 Paying Utility Bills Answer Date Record ed Do you have trouble paying your heating or elect ricity bill? Yes 10/08/2024 Transportation Answer Date Recorded Has the lack of transportati on kept you from medical appointments or from getting medications? No 10/08/2024 Unemployment Answer Date Recorded Are you currently unemployed or working on a part-time or temporary basis, and looking for work? No 04/09/2021 Digital Access Answer Date Recorded No 10/08/2024 Yes 10/08/2024 Do you have reliable internet access at home? Ye s 10/08/2024 Do you have a device (e.g., phone, tablet, computer) with a working camera? Yes 10/08/2024 Intimate Partner Violence Answer Date R ecorded Denied Basic Needs Not on file 10/08/2024 In the past 12 months have y ou been in a relationship with a person who hurts, threatens, or tries to control you? No 10/08/2024 Worried food would run out Not on file 10/08 In the past 12 months have y ou been in a relationship with a person who hurts, threatens, or tries to control you? No 10/08/2024 Comments No Sex and Gender Information Value Date Recorded Sex Assigned at Female 01/29/2018 8:39 AM EDT Legal Sex Female 11:33 AM EDT Gender Identity Female 01/29/2018 8:39 AM EDT Sexual Orientation Straight 01/29/2018 8: 39 AM EDT Occupation Industry Job Start Date Job End Date [employer] Not on file Not on file Not on file Last Filed Vital Signs Vital Sign Reading Time Taken Comments Blood Pressure 136/82 01/03/2025 1:11 PM EDT Pulse 82 01/03/2025 1:11 PM EDT Temperature 35.9 C (96.6 F) 01/03/2025 1:11 PM EDT Respiratory Rate 14 05/28/2024 9:22 AM EST Oxygen Saturation 100% 01/03/2025 1:11 PM EDT Inhaled Oxygen Concentration - - Weight 107.9 kg (237 lb 12.8 oz) 01/03/2025 1:11 PM EDT Height 166.5 cm (5' 5.55 ) 01/03/2025 1:11 PM ED T Body Mass Index 38.91 01/03/2025 1:11 PM EDT Plan of Treatment Upcoming Encounters Date Type Department Care Team (Late st Contact Info) Description 03/19/2025 8:45 AM EDT Office Visit [address] [place] [address] Lindsay Otto MD [address] [place] [address], [address] [place] [address] 03/24/2025 9:40 AM EDT Office Visit [facility] [address] [place] [address] 3rd Floor, [address] [place] [address] Alexis Acosta MD, [place] [address] [facility], [address] [address] 01/05/2026 2:30 PM EDT Office Visit [address] [place] [address] Lindsay Otto MD [address] [place] [address], [address] [place] [id number] Health Maintenance Due Date Last Done Comments PNEUMOCOCCAL VACCINES (50+ years) (1 of 2 - PCV) 09/27/1990 COLOGUARD 09/27/2016 FIT TEST 09/27/2016 FOBT 09/27/2016 SIGMOIDOSCOPY 09/27/2016 VIRTUAL COLONOSCOPY 09/27/2016 Adult Td,Tdap Booster 03/11/2023 03/11/2013 INFLUENZA VACCINE (#1) 2025 COVID-19 VACCINE (3 - season) 2025 01/27/2021, 12/31/2020 DEPRESSION SCREENING 12/27/2025 12/27/2024, 07/31/19 24 SMOKING Hx and SMOKELESS TOBACCO SCREENING 01/03/2026 01/03/2025 MAMMOGRAM 05/03/2026 05/03/2024, 110 01/2024, 05/02/2023, Additional history exists COLONOSCOPY 06/22/2027 06/22/2022, 05/04/2020 COLORECTAL CANCER SCREENING 06/22/2027 SCREENING FOR DIABETES 02/07/2028 02/06/2025, 2024 PAP SMEAR 10/11/2029 10/11/2024, 08/0 08/2019, 01/27/2020 LIPID PANEL 02/06/2030 02/06/2025, 05/0 12/2023, 08/27/2021, Additional history exists HEPATITIS C SCREENING Completed 01/03/2018 HIV ONE-TIME SCREENING (18-65 YEARS) Completed 01/03/2018 ZOSTER VACCINES Completed 07/13/2022, 11/09/2021 HEPATITIS A VACCINES Aged Out No long er eligible based on patient's age to complete this topic HIB VACCINES Aged Out No longer eligi ble based on patient's age to complete this topic MENINGOCOCCAL VACCINES (ACWY) Aged Out No longer eligible based on patient's age to complete this topic MENINGOCOCCAL VACCINES (B) Aged Out N o longer eligible based on patient's age to complete this topic Medical Devices Implanted Type Area Adult Educator Device Identifier Shelf Expiration Date Model / Serial / Lot Balloon Balloon Bilateral: Chest Wall Description:Saline per pt Right Knee Low Back Right Side Procedures Procedure Name Priority Date/Time Associated Diagnosis Comments VITAMIN B12 Routine 02/06/2025 7:13 AM EDT Encounter for general adult medical examination with abnormal findings CORTISOL AM Routine 02/06/2025 7:13 AM EDT Encounter for general adult medical examination with abnormal findings CBC Routine 02/06/2025 7:13 AM EDT Encounter for general adult medical examination with abnormal findings COMPREHENSIVE METABOLIC PANEL Routine 02/06/2025 7:13 AM EDT Encounter for general adult medical examination with abnormal findings HEMOGLOBIN A1C Routine 02/06/2025 7:13 AM EDT Encounter for general adult medical examination with abnormal findings LIPID PANEL Routine 02/06/2025 7:13 AM EDT Encounter for general adult medical examination with abnormal findings 25-OH VITAMIN D Routine 02/06/2025 7:13 AM EDT Encounter for general adult medical examination with abnormal findings TESTOSTERONE, TOTAL Routine 02/06/2025 7 :13 AM EDT Decreased libido TSH WITH REFLEX Routine 02/06/2025 7:13 AM EDT Decreased libido POCT URINE DIPSTICK Routine 01/03/2025 5 :27 PM EDT Dysuria URINALYSIS W/REFLEX URINE CULTURE Routine 01/03/2025 5:11 PM EDT Encounter for general adult medical examination with abnormal findings PAP TEST Routine 10/11/2024 12:00 AM EDT HM MAMMOGRAPHY Routine 05/03/2024 3:37 PM EST ENDOSCOPY, COLON 06/22/2022 8:34 AM EST HEPATITIS C ANTIBODY, QUALITATIVE Routine 01/03/2018 10:45 AM EDT Vulvar lump from Last 3 Months or Most Recently Relevant to Health Maintenance Results * (ABNORMAL) Cortisol AM (02/06/2025 7:13 AM EDT) CORTISOL AM 20.4(H) 6.02 - 18.4 ug/dL [facility] Blood 02/06/2025 7:13 AM EDT 02/06/2025 7:22 AM EDT Lindsay Otto MD LAB BLOOD ORDERABLES Final Result Performing Organization Address City/State/[facility] Co de Phone Number [address] [address] * (ABNORMAL) Comprehensive metabolic panel (02/06/2025 7:13 AM EDT) SODIUM 136 133 - 146 mmol/L [facility] POTASSIUM 4.6 3.3 - 5.1 mmol/L [facility] CHLORIDE 101 96 - 108 mmol/L [facility] CO2 25 21 - 35 mmol/L [facility] BUN 15 6 - 19 mg/dL [facility] CREATININE 0.90 0.5 - 1.5 mg/dL [facility] GLUCOSE 108(H) 70 - 99 mg/dL [facility] ALBUMIN 4.3 3.9 - 4.8 g/dL [facility] TOTAL PROTEIN 7.9 6.5 - 8.0 g/dL [facility] CALCIUM 9.4 8.4 - 10.3 mg/dL [facility] ALKALINE PHOSPHATASE 90 39 - 117 U/L [facility] TOTAL BILIRUBIN 0.3 0.0 - 1.2 mg/dL [facility] AST 15 0 - 37 U/L [facility] ALT 13 0 - 40 U/L [facility] GLOBULIN 3.6 1 - 4.8 g/dL [facility] EGFR 76 >59 mL/min/1.7 3m2 [facility] Comment:Estimated glomerular filtration rate calculated using the CKD-EPI refit equation. ANION GAP 15 10 - 20 mmol/L [facility] Blood 02/06/2025 7:13 AM EDT 02/06/2025 7:22 AM EDT us Lindsay Otto MD LAB BLOOD ORDERABLES Final Result [address] [address] * TSH with reflex (02/06/2025 7:13 AM EDT) TSH 2.64 0.27 - 4.20 uIU/mL [facility] Blood 02/06/2025 7:13 AM EDT 02/06/2025 7:22 AM EDT us Sammy Wallace MD LAB BLOOD ORDERABLES Final Re sult Performing Organization Address [facility]/ZIP Co de Phone Number [address] [address] * (ABNORMAL) 25-OH vitamin D (02/06/2025 7:13 AM EDT) 25 OH VIT D (TOTAL) 61(H) 30 - 60 ng/mL [facility] Blood 02/06/2025 7:13 AM EDT 02/06/2025 7:22 AM EDT Lindsay Otto MD LAB BLOOD ORDERABLES Final Result Performing Organization Address City/[facility]/ZIP Co de Phone Number [address] [address] * CBC (02/06/2025 7:13 AM EDT) WBC 6.16 4.00 - 11.00 K/uL [facility] RBC 4.80 4.00 - 5.20 M/uL [facility] HGB 14.6 12.0 - 16.0 g/dL [facility] HCT 43.7 36.0 - 46.0 % [facility] PLT 241 150 - 450 K/uL [facility] MCV 91.0 80.0 - 100.0 fL [facility] MCH 30.4 27.0 - 31.0 pg [facility] MCHC 33.4 32.0 - 36.0 g/dL [facility] RDW 13.2 11.5 - 14.5 % [facility] [facility] MPV 10.6 8.4 - 12.0 fL [facility] NRBC 0.00 0.00 /100 WBCs [facility] ABSOLUTE NRBC 0.00 0.00 K/uL [facility] Blood 02/06/2025 7:13 AM EDT 02/06/2025 7:22 AM EDT Lindsay Otto MD LAB BLOOD ORDERABLES Final Result [address] [address] * Testosterone, total (02/06/2025 7:13 AM EDT) TESTOSTERONE 35 <50 ng/dL [facility] Blood 02/06/2025 7:13 AM EDT 02/06/2025 7:22 AM EDT Sammy Wallace MD LAB BLOOD ORDERABLES Final Re sult Performing Organization Address City/[facility]/ZIP Co de Phone Number [address] [address] * Hemoglobin A1c (02/06/2025 7:13 AM EDT) HEMOGLOBIN A1C 5.2 4.3 - 5.8 % [facility] Blood 02/06/2025 7:13 AM EDT 02/06/2025 7:21 AM EDT Lindsay Otto MD LAB BLOOD ORDERABLES Final Result Performing Organization Address City/[facility]/ZIP Co de Phone Number [address] [address] * (ABNORMAL) Vitamin B12 (02/06/2025 7:13 AM EDT) VITAMIN B12 >2000(H) 232 - 1245 pg/mL [facility] Blood 02/06/2025 7:13 AM EDT 02/06/2025 7:22 AM EDT Lindsay Otto MD LAB BLOOD ORDERABLES Final Result Performing Organization Address [facility] Co de Phone Number [address] [address] * Lipid panel (02/06/2025 7:13 AM EDT) HDL 47 mg/dL [facility] Comment: Interpretation <40 mg/dL: Low HDL cholesterol (major risk factor for CHD) Greater than or equal to 60 mg/dL: High HDL cholesterol ( negative risk factor for CHD) HDL - cholesterol is affected by a number of factors, e.g. smoking, excerise, hormones, sex and age. CHOLESTEROL 178 0 - 240 mg/dL [facility] TRIGLYCERIDES 117 30 - 160 mg/dL [facility] LDL 108 50 - 129 mg/dL [facility] Comment: LDL levels in terms of risk for coronary heart disease: <100 mg/dL: Optimal 100-129 mg/dL: Near or above optimal 130-159 mg/dL: Borderline high 160-189 mg/dL: High >190 mg/dL: Very High CARDIAC RISK RATIO 3.8 3.3 - 4.4 [facility] Blood 02/06/2025 7:13 AM EDT 02/06/2025 7:21 AM EDT Lindsay Otto MD LAB BLOOD ORDERABLES Final Result Performing Organization Address City/[facility]/ZIP Co de Phone Number [address] [address] * POCT Urine Dipstick (Automated) (01/03/2025 5:27 PM EDT) COLOR LT YELLOW [facility] TURBIDITY Clear [facility] GLUCOSE, POCT Negative Negative [facility] KETONE, POCT Negative Negative [facility] OCCULT BLOOD, POCT Negative Negative [facility] SPECIFIC GRAVITY, POCT 1.010 1.001 - 1.030 [facility] ALBUMIN, POCT Negative Negative [facility] Bili Negative Negative [facility] Urobilinogen 0.2 <1.0 [facility] NITRITE, POCT Negative Negative [facility] PH, POCT 7.0 5.0 - 8.0 [facility] WBC SCREEN, POCT Negative Negative [facility] 01/03/2025 5:27 PM EDT 01/03/2025 5:29 PM EDT Lindsay Otto MD POINT OF CARE TEST ORDERABL ES Final Result Performing Organization Address City/[facility]/ZIP Co de Phone Number [address] [address], [facility] [phone] * Urinalysis w/reflex Urine Culture (01/03/2025 5:11 PM EDT) COLOR Yellow Yellow [facility] CLARITY Clear [facility] GLUCOSE Negative Negative [facility] BILI Negative Negative [facility] KETONES Negative Negative [facility] SPECIFIC GRAVITY <1.005 1.005 - 1.030 [facility] BLOOD Negative Negative [facility] PH 7.0 5.0 - 8.0 [facility] Protein-UA Negative Negative [facility] NITRITE Negative Negative [facility] Leukocyte esterase, ur Negative Negative [facility] Urine (Urine) 01/03/2025 5:1 1 PM EDT 01/03/2025 8:00 PM EDT Lindsay Otto MD URINE ORDERABLES Final Resu lt [facility] [address] [place] [address] * Pap Test (10/11/2024 12:00 AM EDT) 10/11/2024 10/14/2024 9:5 1 AM EDT Narrative SEE NARRATIVE - 10/17/2024 3:35 PM EDT [address] [address] 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 PAP SMEAR (THIN PREP) CE: SPECIMEN ADEQUACY: Satisfactory for evaluation; transformation zone present. INTERPRETATION: NEGATIVE FOR INTRAEPITHELIAL LESION OR MALIGNANCY. This specimen was analyzed by the automated ThinPrep Imaging System ([employer].) and the selected shin were reviewed by a treasury representative. Electronically Signed Out By: IMELDA Ashby(ASCP) The Pap test is a screening test primarily for squamous cancers and precursors and has associated false-negative and false-positive results. New technologies such as liquid-based preparations may decrease but will not eliminate all false-negative results. Regular sampling and follow-up of unexplained clinical signs and symptoms are recommended to minimize false negative results. PROCEDURES/ADDENDA HPV Testing (Requested) Ordered Date: 10/14/2024 A. PAP SMEAR (THIN PREP) CE: High-risk HPV Panel w/ extended genotyping NEG HPV 16-NEG HPV 18-NEG HPV 45-NEG HPV 33/58-NEG HPV 31-NEG HPV 56/59/66-NEG HPV 51-NEG HPV 52-NEG HPV 35/39/68-NEG Performed by real-time polymerase chain reaction (PCR) at [facility], [address] [place] [address] using the FDA-approved BD Onclarity HPV Assay with extended genotyping. Uses of the assay in scenarios other than those approved by the FDA should be considered off-label use. The accuracy and precision of this test for all other off-label specimen sources has been verified in the Cytopathology Laboratory of the [facility] and has not been cleared or approved by the U.S. Food and Drug Administration. Clinical correlation is advised. The assay assesses the E6/E7 DNA target and utilizes human beta globin as an internal control. Cytology and HPV testing are screening assays and should not be used as the sole means of detecting cancer. False-positives and false-negatives can occur. CLINICAL HISTORY Date of Last Menstrual Period: Not Provided Menstrual History: Unknown Coretta-Menopausal Other Clinical Conditions: Screening Pap SPECIMEN SOURCE A: PAP SMEAR (THIN PREP) CE Patient Name: SWATHI GARCIA : 1970 (Age: 54) Sex: F Institution: [facility] Location: [facility] Date of Collection: 10/11/2024 Date of Reported: 10/17/2024 15:35 Results to: Sammy Wallace MD, BS us Sammy Wallace MD CYTOLOGY ORDERABLES Final Res ult SEE NARRATIVE * HM MAMMOGRAPHY FOR RESULT ENTRY ONLY (05/03/2024 3:37 PM EST) us Lindsay Otto MD HEALTH MAINTENANCE Edited R esult - Final * ENDOSCOPY, COLON (06/22/2022 8:34 AM EST) Narrative Transcriptions Kacy Casas MD - 06/22/2022 8:34 AM EST Patient Name: Swathi Jose Attending MD:: KACY CASAS MD Procedure Date: 06/22/2022 8:34 AM Date of : 1970 Age: 51 Admit Type: Outpatient Gender: Female Room: [facility] 04 Referring MD: Lindsay Otto MD Exam Type: Colonoscopy Indications: High risk colon cancer surveillance: Personalhistory of colonic polyps, Last colonoscopy: April 2020 (Dr. Fine) Medications: Monitored Anesthesia Care Procedure: Informed consent was obtained from the patientafter discussion of the indications, limitations, alternatives, benefits, and risks of the procedure. Risks specifically discussed include but are not limited to medication reactions, missed lesions, bleeding, perforation, or the need for emergent surgery. Throughout the procedure, the patient's blood pressure, pulse, end-tidal CO2, and oxygensaturations were monitored continuously. The Colonoscope was introduced through the anus and advanced to the terminal ileum, with identificationof the appendiceal orifice and IC valve. Thecolonoscopy was performed without difficulty. The patient tolerated the procedure fairly well. The quality of the bowel preparation was good. The terminal ileum, ileocecal valve, appendiceal orifice, and rectumwere photographed. Complications: No immediate complications. Estimated blood loss:None. Findings: The terminal ileum appeared normal. The entire examined colon appeared normal on direct and retroflexion views. Retroflexion in the right colon was performed. Non-bleeding internal hemorrhoids were found during retroflexion. The hemorrhoids were small. Impression: - The examined portion of the ileum was normal. - The entire examined colon is normal on direct and retroflexion views. - Non-bleeding internal hemorrhoids. - No specimens collected. Recommendation: - Repeat colonoscopy in 5 years for screeningpurposes. KACY CASAS MD 06/22/2022 9:06:08 AM This report has been signed electronically. Number of Addenda: 0 Note Initiated On: 06/22/2022 8:34 AM Procedure Date: 06/22/2022 8:34:[address] [place] [address] us Lindsay Otto MD GI PROCEDURE ORDERABLES Fin al Result * Hepatitis C antibody, qualitative (01/03/2018 10:45 AM EDT) HCV Negative Negative [facility] Comment: This is a screening test and should be confirmed with molecular testing Blood 01/03/2018 10:4 5 AM EDT 01/03/2018 10:46 AM EDT us Brien Hernandez MD LAB BLOOD ORDERABLES Final Resul t [address] [address] from Last 3 Months or Most Recently Relevant to Health Maintenance Insurance CIGNA PPO CIGNA PPO Member Subscriber Plan / Payer (Ef fective 2020-Present) Name:Queafua, Swathi Relation to Subscriber:Self Name:Queafua Swathi Payer ID:[id number] ([facility]) Type:PPO Address: [place] [id number] CIGNA PPO CIGNA PPO CIGNA PPO CIGNA PPO CIGNA PPO CIGNA PPO CIGNA PPO [employer] Advance Directives For more information, please contact: [phone] (9AM - 5PM [facility], Monday-Monday) Documents on File Type Date Recorded Patient Telecommunications Field Engineer Expl anation Healthcare Proxy 05/27/2020 HEALTHCARE PROXY Care Teams Mental Health Orderly Relationship Specialty Start Date End Date Lindsay Otto MD [address] [place] [address], [address] [place] [address] [email or web address] PCP - General Internal Medicine 01/29/18 Ankit Khoury MD [address] [place] [phone] [email or web address] Urology 02/19/21 Additional Source Comments The information contained in this document represents components of the legal health record. It is not the complete legal health record.[facility]
--- OUTSIDE RECORDS SUMMARY | 2025-03-17 18:29 | XMS_ITS | Encounter Summary ---
Author Organization [facility] Address [address] [place] [address] Phone Care Team Providers Care Motor Inspection Mechanic Name Role Phone Lindsay Otto MD Primary Care Provider [phone] Ankit Khoury MD Unavailable [phone] Encounter Details Date Type Department Care Team (Late st Contact Info) Description 04/02/2024 Procedure Pass OR Admitting Dept - Virtual Department [address] [place] [address] Social History Tobacco Use Types Packs/Day Years Used Date Smoking Tobacco: Every Day Cigarettes 0.3 14 Started: 01/24/2006; Last attempted to quit: 01/25/2020 Smokeless Tobacco: Never Alcohol Use Standard Drinks/Week Comments Yes 35 (1 standard drink = 0.6 oz pu re alcohol) Child or Family Care Answer Date Record ed Do you have problems with on e of the following making it difficult for you to work, study, or receive health care? No 10/07/2023 Education Answer Date Recorded Are you interested in help w ith more adult education (for example, completing high school, GED, job training, learning the [place] language, technical skills, or developing parenting skills)? No 10/07/2023 Are you concerned about learning? Not on file 10/07/2023 No 10/07/2023 Yes 10/07/2023 Food Answer Date Recorded Within the past 6 months we worried whether our food would run out before we got money to buy more. Never True 10/07/2023 Within the past 6 months the food we bought just didn't last and we didn't have enough money to get more. Never True Residential Stability Answer Date Recor ded What is your housing situation today? I have edy giron 10/07/2023 How many times have you move d in the past 12 months? Zero (I did not move) 10/07/2023 Paying for Meds Answer Date Recorded Do you have trouble paying for medicines? No 10/07/2023 Paying Utility Bills Answer Date Record ed Do you have trouble paying your heating or elect ricity bill? No 10/07/2023 Transportation Answer Date Recorded Has the lack of transportati on kept you from medical appointments or from getting medications? No 10/07/2023 Unemployment Answer Date Recorded Are you currently unemployed or working on a part-time or temporary basis, and looking for work? No 04/09/2021 Digital Access Answer Date Recorded No 10/07/2023 Yes 10/07/2023 Do you have reliable internet access at home? Ye s 10/07/2023 Do you have a device (e.g., phone, tablet, computer) with a working camera? Yes 10/07/2023 Intimate Partner Violence Answer Date R ecorded Denied Basic Needs Not on file 10/07/2023 In the past 12 months have y ou been in a relationship with a person who hurts, threatens, or tries to control you? No 10/07/2023 Worried food would run out Not on file 10/06 In the past 12 months have y ou been in a relationship with a person who hurts, threatens, or tries to control you? No 10/07/2023 Comments No Sex and Gender Information Value [...] 8:45 AM EDT Office Visit [facility] [address] [place] [address] [place] [address] Lindsay Otto MD [address] [place] [address] 03/24/2025 9:40 AM EDT Office Visit [facility] [address] [place] [address] [address]rd Floor, [address] [place] [address] Alexis Acosta MD, [place] 22 [facility], [address] [place] [address] 01/05/2026 2:30 PM EDT Office Visit [facility] [address] [place] [address] Lindsay Otto MD [address] [place] [address] documented as of this encounter Visit Diagnoses Not on filedocumented in this encounter Additional Health Concerns Assessment Noted Time PHQ-9 Depression Total Score: 19 07/31/ 024 8:30 AM EST A Body Mass Index follow-up plan has been documented for the patient 10/10/2023 10:27 AM EDT PHQ-2 Depression Total Score: 2 10/07/19 24 5:09 AM EDT documented as of this encounter Care Teams Motor Inspection Mechanic Relationship Specialty Start Date End Date Lindsay Otto MD [address] [place] [id number] PCP - General Internal Medicine 01/29/18 Ankit Khoury MD [address] [place] [phone] [email or web address] Urology 02/19/21 documented as of this encounter Additional Source Comments The information contained in this document represents components of the legal health record. It is not the complete legal health record.[facility]
--- OUTSIDE RECORDS SUMMARY | 2025-03-17 18:29 | XMS_ITS | Encounter Summary ---
Author Organization [facility] Address [address] [place] [address] Phone Care Team Providers Care Emergency Room Clinician Name Role Phone Lindsay Otto MD Primary Care Provider [phone] Ankit Khoury MD Unavailable [phone] Encounter Details Date Type Department Care Team (Late st Contact Info) Description 06/22/2022 Procedure Pass [facility] Endoscopy Admitting Dept Virtual Department [address] [place] [address] Social History Tobacco Use Types Packs/Day Years Used Date Smoking Tobacco: Former Cigarettes 0.3 14 0 01/24/2006 - 01/25/2020 Smokeless Tobacco: Never Alcohol Use Standard Drinks/Week Comments Not Currently 6 (1 standard drink = 0.6 oz pur e alcohol) social-6 per week Child or Family Care Answer Date Record ed Do you have problems with on e of the following making it difficult for you to work, study, or receive health care? No 04/09/2021 Education Answer Date Recorded Are you interested in help w ith more adult education (for example, completing high school, GED, job training, learning the [place] language, technical skills, or developing parenting skills)? No 04/09/2021 Food Answer Date Recorded Within the past 6 months we worried whether our food would run out before we got money to buy more. Never True 04/09/2021 Within the past 6 months the food we bought just didn't last and we didn't have enough money to get more. Never True Residential Stability Answer Date Recor ded What is your housing situation today? I have edy giron 04/09/2021 How many times have you move d in the past 12 months? Zero (I did not move) 04/09/2021 Paying for Meds Answer Date Recorded Do you have trouble paying for medicines? No 04/09/2021 Paying Utility Bills Answer Date Record ed Do you have trouble paying your heating or elect ricity bill? No 04/09/2021 Transportation Answer Date Recorded Has the lack of transportati on kept you from medical appointments or from getting medications? No 04/09/2021 Unemployment Answer Date Recorded Are you currently unemployed or working on a part-time or temporary basis, and looking for work? No 04/09/2021 Comments No Sex and Gender Information Value [...] Description 03/19/2025 8:45 AM EDT Office Visit [address] [place] [address] Lindsay Otto MD [address] [place] [address] 03/24/2025 9:40 AM EDT Office Visit [facility] [address] [place] [address] [address]rd Floor, [address] [place] [address] Alexis Acosta MD, [place] 22 [facility], [address] [address] 01/05/2026 2:30 PM EDT Office Visit [address] [place] [address] Lindsay Otto MD [address] [place] [address], [address] [place] [address] [email or web address] documented as of this encounter Visit Diagnoses Not on filedocumented in this encounter Additional Health Concerns Assessment Noted Time PHQ-9 Depression Total Score: 8 09/07/19 22 10:26 AM EDT A Body Mass Index follow-up plan has been documented for the patient 11/09/2021 12:46 PM EDT PHQ-2 Depression Total Score: 2 11/08/19 22 11:58 AM EDT documented as of this encounter Care Teams Emergency Room Clinician Relationship Specialty Start Date End Date Lindsay Otto MD [address] [place] [address], [address] [place] [address] [email or web address] PCP - General Internal Medicine 01/29/18 Ankit Khoury MD [address] [phone] [email or web address] Urology 02/19/21 documented as of this encounter Additional Source Comments The information contained in this document represents components of the legal health record. It is not the complete legal health record.[facility]
--- OUTSIDE RECORDS SUMMARY | 2025-03-17 18:29 | XMS_ITS | Encounter Summary ---
Author Organization [facility] Address [address] [facility] [address] [place] [address] Phone Care Team Providers Care Grain Scooper Name Role Phone Lindsay Otto MD Primary Care Provider [phone] Lindsay Otto MD Unavailable [phone] Kamini Dixon RN Unavailable [email or web address] Ankit Khoury MD Unavailable [phone] Encounter Details Date Type Department Care Team (Late st Contact Info) Description 09/19/2018 Ancillary Orders [facility],Outside Imaging [address] [place], [place] [id number] System, Provider Not In, [place] [address] Social History Tobacco Use Types Packs/Day Years Used Date Smoking Tobacco: Some Days Cigarettes Smokeless Tobacco: Never Alcohol Use Standard Drinks/Week Comments Yes 6 (1 standard drink = 0.6 oz pur e alcohol) social-6 per week Comments No Sex and Gender Information Value [...] Encounters Date Type Department Care Team (Late Contact Info) Description 03/19/2025 8:45 AM EDT Office Visit [facility] [address] [place] [address] Lindsay Otto MD [address] [place] [address], [address] [place] [address] [email or web address] 03/24/2025 9:40 AM EDT Office Visit [facility] [address] Floor, [address] [place] [address] Alexis Acosta MD, MS 22 [facility], [address] [place] [address] 01/05/2026 2:30 PM EDT Office Visit [facility] [address] [place] [address] Lindsay Otto MD [address] [place] [address], [address] [place] [address] documented as of this encounter Results * Mammogram Outside (No Interpretation) (09/20/2017 12:00 AM EDT) Narrative SYSTEMGENERATED, DOCUMENTATION - 09/19/2018 10:19 AM EDT This study is for PACS storage only and not for interpretation. us Provider Not In System PhD IMG OUTSIDE IMAGING W /OUT INTERPRETATION Final Result documented in this encounter Visit Diagnoses Not on filedocumented in this encounter Additional Health Concerns Infection Onset Date Last Indicated Resolved Time CoV-Risk 01/05/2020 01/05/2020 01/19/2020 1:25 AM EDT CoV-Exposed Comment:Recent close contact 05/06/2020 05/06/2020 05/07/2020 3:52 PM EST CoV-Exposed Comment:Recent close contact 05/13/2020 05/13/2020 05/18/2020 5:02 PM EST CoV-Risk 07/14/2021 07/14/2021 07/24/2021 1:22 AM EST Assessment Noted Time A Body Mass Index follow-up plan has been documented for the patient 09/18/2018 9:39 PM EDT PHQ-2 Depression Total Score: 1 09/18/19 19 4:23 PM EDT documented as of this encounter Care Teams Grain Scooper Relationship Specialty Start Date End Date Lindsay Otto MD [address] [place] [address] [email or web address] PCP - General Internal Medicine 01/29/18 Lindsay Otto MD [address] [place] [address] [email or web address] Insurance Assigned Provider 12/30/19 11/29/20 Kamini Dixon RN [address] [place] [address] [email or web address] Chart Collector 01/06/20 01/27/20 Ankit Khoury MD [address] [phone] Urology 02/19/21 documented as of this encounter Additional Source Comments The information contained in this document represents components of the legal health record. It is not the complete legal health record.[facility]
--- OUTSIDE RECORDS SUMMARY | 2025-03-17 18:29 | XMS_ITS | Encounter Summary ---
Author Organization Located Within [facility] Address [address] [place] [address] Phone Care Team Providers Care Pie Baker Name Role Phone Lindsay Otto MD Primary Care Provider [phone] Lindsay Otto MD Unavailable [phone] Ankit Khoury MD Unavailable [phone] Encounter Details Date Type Department Care Team (Late st Contact Info) Description 05/04/2020 Procedure Pass [facility] Admitting Dept Virtual Department [address] [place] [address] Social History Tobacco Use Types Packs/Day Years [...] work, study, or receive health care? No 02/18/2020 Education Answer Date Recorded Are you interested in help w ith more adult education (for example, completing high school, GED, job training, learning the Turkmen language, technical skills, or developing parenting skills)? No 02/18/2020 Are you concerned about learning? Not on file 02/18/2020 Not on file 02/18/2020 Not on file 02/18/2020 Food Answer Date Recorded Within the past 6 months we worried whether our food would run out before we got money to buy more. Never True 02/18/2020 Within the past 6 months the food we bought just didn't last and we didn't have enough money to get more. Never True 0 Paying for Meds Answer Date Recorded Do you have trouble paying for medicines? No 02/18/2020 Paying Utility Bills Answer Date Record ed Do you have trouble paying your heating or elect ricity bill? No 02/18/2020 Transportation Answer Date Recorded Has the lack of transportati on kept you from medical appointments or from getting medications? No 02/18/2020 Comments No Sex and Gender Information Value [...] 8:45 AM EDT Office Visit [facility] [address] [place] [address] Lindsay Otto MD [address] [place] [address], [address] [place] [address] 03/24/2025 9:40 AM EDT Office Visit [facility] [address] [place] [address] 3rd Floor, [address] [place] [address] Alexis Acosta MD, [place] 22 [facility], [address] [place] [address] 01/05/2026 2:30 PM EDT Office Visit [facility] [address] [place] [address] Lindsay Otto MD [address] [place] [address], [address] [place] [address] documented as of this encounter Visit Diagnoses Not on filedocumented in this encounter Additional Health Concerns Infection Onset Date Last Indicated Resolved Time CoV-Exposed Comment:Recent close contact 05/06/2020 05/06/2020 05/07/2020 3:52 PM EST CoV-Exposed Comment:Recent close contact 05/13/2020 05/13/2020 05/18/2020 5:02 PM EST CoV-Risk 07/14/2021 07/14/2021 07/24/2021 1:22 AM EST Assessment Noted Time A Body Mass Index follow-up plan has been documented for the patient 01/27/2020 10:14 PM EDT PHQ-2 Depression Total Score: 2 03/12/20 3:31 PM EDT documented as of this encounter Care Teams Pie Baker Relationship Specialty Start Date End Date Lindsay Otto MD [address] [place] [address] PCP - General Internal Medicine 01/29/18 Lindsay Otto MD [address] [place] [address] Insurance Assigned Provider 12/30/19 11/29/20 Ankit Khoury MD 100 [facility] [address] [address] Urology 02/19/21 documented as of this encounter Additional Source Comments The information contained in this document represents components of the legal health record. It is not the complete legal health record.[facility]
--- OUTSIDE RECORDS SUMMARY | 2025-03-17 18:29 | XMS_ITS | Encounter Summary ---
Author Organization [facility] Address [address] [place] [address] Phone Care Team Providers Care Dispensing Audiologist Name Role Phone Lindsay Otto MD Primary Care Provider [phone] Lindsay Otto MD Unavailable [phone] Ankit Khoury MD Unavailable [phone] Encounter Details Date Type Department Care Team (Late st Contact Info) Description 05/08/2020 Procedure Pass [facility] Admitting Dept - Virtual Department [address] [place] [address] Social History Tobacco Use Types Packs/Day Years [...] high school, GED, job training, learning the Albanian language, technical skills, or developing parenting skills)? [...] 8:45 AM EDT Office Visit [facility] [address] [place] [address] Lindsay Otto MD [address] [place] [address], [address] [place] [address] [email or web address] 03/24/2025 9:40 AM EDT Office Visit [facility] [address] [place] [address] 3rd Floor, [address] [place] [address] Alexis Acosta MD, MS 22 [facility], [address] [place] [address] 01/05/2026 2:30 PM EDT Office Visit [facility] [address] [place] [address] Lindsay Otto MD [address] [place] [address], [address] [place] [address] documented as of this encounter Visit Diagnoses Not on filedocumented in this encounter Additional Health Concerns Infection Onset Date Last Indicated Resolved Time CoV-Exposed Comment:Recent close contact 05/13/2020 05/13/2020 05/18/2020 5:02 PM EST CoV-Risk 07/14/2021 07/14/2021 07/24/2021 1:22 AM EST Assessment Noted Time A Body Mass Index follow-up plan has been documented for the patient 01/27/2020 10:14 PM EDT PHQ-2 Depression Total Score: 2 03/12/20 3:31 PM EDT documented as of this encounter Care Teams Dispensing Audiologist Relationship Specialty Start Date End Date Lindsay Otto MD [address] [place] [address], [address] [place] [address] PCP - General Internal Medicine 01/29/18 Lindsay Otto MD [address] [place] [address], [address] [place] [address] [email or web address] Insurance Assigned Provider 12/30/19 11/29/20 Ankit Khoury MD [address] [place] [phone] [email or web address] [email or web address] 02/19/21 documented as of this encounter Additional Source Comments The information contained in this document represents components of the legal health record. It is not the complete legal health record.[facility]
--- OUTSIDE RECORDS SUMMARY | 2025-03-17 18:29 | XMS_ITS | Patient Health Record ---
Author Organization [facility] Address [address] [address] Care Team Providers Care Manager Msw Name Role Phone Lindsay Otto Primary Care Provider UnavailPalmira Hardwick Unavailable [phone] Allergies No Known Allergies Reason For Referral No Information Medications Medication SIG (Take, Route, Frequency, Duration) Notes Start Date End Date Status Medrol gianni 4mg as directed orally a s directed; Duration: 6 days 11/28/2023 Activ e DayVigo 10 MG 1 tablet at bedtime Orally Once a day Active Ativan Active Prevacid 30 MG 1 capsule Orally as needed Active Wellbutrin XL 300 MG 1 tablet in the mor ebonie Orally Once a day; Duration: 30 days Active SEROquel Active KlonoPIN Not-Taking Work Note . . . Patient off of w ork today 07/09/19 07/09/2019 Not-Taking Effexor Not-Taking Physical Therapy . . . 2-3x/week; Durat ion: 3-4 weeks 02/01/2022 Not-Taking Naproxen Not-Taking Medrol gianni 4mg as directed orally a s directed; Duration: 6 days 02/01/2022 Not-T aking traMADol HCl 50 MG 1 tablet as needed O rally Every 4-6 hours as needed for pain; Duration: 7 days 02/10/2022 Not-T aking Social History Tobacco Use: Social History Observation Description Date Details (start date - stop date) Light tobacco aaron delvalle NA - NA Tobacco Use/Smoking Question Answer [...] W/U Status Risk Notes Problem Interstitial myositis (05979624) Interstitial myositis of left foot (M60.172) Active confirmed Plan Of Treatment Pending Test Test Name Order Date X ray : Foot, left 3V 03/16/2022 X ray : Foot, left 3V 11/28/2023 X ray : Foot, right 3V 01/21/2022 [id number] TENDON SHEATH/LIGAMENT 0 01/21/2022 Insurance Providers Payer Name Payer Address Payer Phone Subscriber Number Group Number Insured Name Patient Relationship to Insured Coverage Start Date Coverage End Date Cigna [address] [place] [phone] [id number] Swathi Garcia Self - patient is the insured 9 Medical (General) History Medical History History ICD Code Anxiety Depression Gall bladder problems Headaches/Migraines Psoriasis/eczema Reflux ( GERD) Chicken pox Surgical History Surgery Date(Month/Year) knee surgery X4 elbow sx interstem in back carpal tunnel release mass removal from back breast surgery Hospitalization History Reason Date(Month/Year)
--- OUTSIDE RECORDS SUMMARY | 2025-03-17 18:29 | XMS_ITS | Encounter Summary ---
Author Organization [facility] Address [address] [place] [address] Phone Care Team Providers Care Speedometer Inspector Name Role Phone Lindsay Otto MD Primary Care Provider [phone] Lindsay Otto MD Unavailable [phone] Ankit Khoury MD Unavailable [phone] Encounter Details Date Type Department Care Team (Late st Contact Info) Description 06/10/2020 Procedure Pass [facility], Ct Scan - [facility] [address] [place] [address] Social History Tobacco Use Types Packs/Day Years [...] high school, GED, job training, learning the Bangladeshi language, technical skills, or developing parenting skills)? [...] 8:45 AM EDT Office Visit [facility] [address] [place] [address] Lindsay Otto MD [address] [place] [address], [address] [place] [address] [email or web address] 03/24/2025 9:40 AM EDT Office Visit [facility] [address] [place] [address] 3rd Floor, [address] [place] [address] Alexis Acosta MD, MS 22 [facility], [address] [address] 01/05/2026 2:30 PM EDT Office Visit [facility] [address] [place] [address] Lindsay Otto MD [address] [place] [address], [address] [place] [address] documented as of this encounter Visit Diagnoses [...] documented as of this encounter Care Teams Speedometer Inspector Relationship Specialty Start Date End Date Lindsay Otto MD [address] [place] [address], [address] [place] [address] PCP - General Internal Medicine 01/29/18 Lindsay Otto MD [address] [place] [phone] [email or web address] Insurance Assigned Provider 12/30/19 11/29/20 Ankit Khoury MD 100 [facility] [address] [place] [address] [email or web address] Urology 02/19/21 documented as of this encounter Additional Source Comments The information contained in this document represents components of the legal health record. It is not the complete legal health record.[facility]
--- OUTSIDE RECORDS SUMMARY | 2025-03-17 18:29 | XMS_ITS | Encounter Summary ---
Author Organization [facility] Address [address] [place] [address] Phone Care Team Providers Care Molder Wax Ball Name Role Phone Lindsay Otto MD Primary Care Provider [phone] Lindsay Otto MD Unavailable [phone] Ankit Khoury MD Unavailable [phone] Encounter Details Date Type Department Care Team (Late st Contact Info) Description 11/18/2020 Procedure Pass [facility], Ct Scan - [address] [address] Social History Tobacco Use Types Packs/Day Years [...] high school, GED, job training, learning the [place] Verde[place] language, technical skills, or developing parenting skills)? [...] 8:45 AM EDT Office Visit [facility] [address] [place] [address] Lindsay Otto MD [address] [place] [address], [address] [place] [address] 03/24/2025 9:40 AM EDT Office Visit [facility] [address] [place] [address] 3rd Floor, [address] [place] [address] Alexis Acosta MD, MS 22 [facility], [address] [address] 01/05/2026 2:30 PM EDT Office Visit [facility] [address] [place] [address] Lindsay Otto MD [address] [place] [address], [address] [place] [address] documented as of this encounter Visit Diagnoses Not on filedocumented in this encounter Additional Health Concerns Infection Onset Date Last Indicated Resolved Time CoV-Risk 07/14/2021 07/14/2021 07/24/2021 1:22 AM EST Assessment Noted Time A Body Mass Index follow-up plan has been documented for the patient 01/27/2020 10:14 PM EDT PHQ-2 Depression Total Score: 2 02/13/20 21 10:10 AM EDT documented as of this encounter Care Teams Molder Wax Ball Relationship Specialty Start Date End Date Lindsay Otto MD [address] [place] [address], [address] [place] [address] PCP - General Internal Medicine 01/29/18 Lindsay Otto MD [address] [place] [address] Insurance Assigned Provider 12/30/19 11/29/20 Ankit Khoury MD [address] [phone] [email or web address] [facility] 02/19/21 documented as of this encounter Additional Source Comments The information contained in this document represents components of the legal health record. It is not the complete legal health record.[facility]
--- OUTSIDE RECORDS SUMMARY | 2025-03-17 18:29 | XMS_ITS | Encounter Summary ---
Author Organization [facility] Address 399 [facility] [address] [place] [address] Phone Care Team Providers Care Slitter Cut Off Operator Name Role Phone Lindsay Otto MD Primary Care Provider [phone] Ankit Khoury MD Unavailable [phone] Reason for Visit * Reason Comments Med Change Request Encounter Details Date Type Department Care Team (Late st Contact Info) Description 01/06/2025 Refill [facility] [address] [place] [address] [place] [address] Lindsay Otto MD [address] [place] [address], 2nd [place] [address] Med Change Request Social History Tobacco Use Types Packs/Day Years [...] high school, GED, job training, learning the [place] language, technical skills, or developing parenting skills)? [...] on file documented as of this encounter Progress Notes * Nataliia Kraft RN - 02/27/2025 7:49 AM EDT Images from the original note were not included. documented in this encounter Plan of Treatment Upcoming Encounters Date Type Department Care Team (Late st Contact Info) Description 03/19/2025 8:45 AM EDT Office Visit [address] [place] [address] Lindsay Otto MD [address] [place] [address], 2nd [place] [address] 03/24/2025 9:40 AM EDT Office Visit [facility] [address] [place] [address] 3rd Floor, [address] [place] [address] Alexis Acosta MD, MS 22 [facility], [address] [address] 01/05/2026 2:30 PM EDT Office Visit [address] [place] [address] Lindsay Otto MD [address] [place] [address], 2nd [place] [address] documented as of this encounter Visit Diagnoses Diagnosis Class 2 severe obesity with serious comorbidity and body mass index (BMI) of 38.0 to 38.9 in adult, unspecified obesity type VON (obstructive sleep apnea) Obstructive sleep apnea (adult) (pediatric) documented in this encounter Additional Health Concerns Assessment Noted Time PHQ-9 Depression Total Score: 19 024 8:30 AM EST A Body Mass Index follow-up plan has been documented for the patient 01/05/2025 8:59 PM EDT PHQ-2 Depression Total Score: 2 12/28/19 25 10:14 AM EDT documented as of this encounter Care Teams Slitter Cut Off Operator Relationship Specialty Start Date End Date Lindsay Otto MD [address] [place] [address], 2nd [place] [address] [email or web address] PCP - General Internal Medicine 01/29/18 Ankit Khoury MD [address] [phone] [email or web address] Urology 02/19/21 documented as of this encounter Additional Source Comments The information contained in this document represents components of the legal health record. It is not the complete legal health record.[facility]
--- OUTSIDE RECORDS SUMMARY | 2025-03-17 18:29 | XMS_ITS | Patient Health Record ---
Author Organization [facility] Address [address] [facility] [address] [place] [address] Care Team Providers Care Rod Puller And Coiler Name Role Phone Janet ROCK MSc, Johana Unavailable [phone] Allergies No Known Allergies Reason For Referral No Information Medications Medication SIG (Take, Route, Fr equency, Duration) Notes Start Date End Date Status Singulair 10 MG 1 tablet Orally Once a day; Duration: 30 day(s) Active Wellbutrin SR 150 MG 1 tablet in the mor ebonie Orally Once a day; Duration: 30 day(s) Active KlonoPIN 2 MG 1 tablet Orally Once a day Active Prevacid 30 MG 1 capsule before a m eal Orally Once a day; Duration: 30 day(s) Active Ativan 2 MG 1 [...] Problem Status W/U Status Risk Notes Problem Osteoarthritis of knee (098275882) Primary osteoarthritis of right knee (M17.11) Active [...]
--- OUTSIDE RECORDS SUMMARY | 2025-03-17 18:29 | XMS_ITS | Encounter Summary ---
Author Organization [facility] Address [address] [facility] [address] [place] [address] Phone Care Team Providers Care Truck Manager Name Role Phone Lindsay Otto MD Primary Care Provider [phone] Lindsay Otto MD Unavailable [phone] Ankit Khoury MD Unavailable [phone] Encounter Details Date Type Department Care Team (Late st Contact Info) Description 04/15/2020 Prep for Surgery [facility] Medicine [address] [place] [address] Daphne Dyer MD [address] [place] [address] Orthopedics & Sports Medicine, [facility] [place] [address] [email or web address] Social History Tobacco Use Types Packs/Day Years [...] high school, GED, job training, learning the Andorran language, technical skills, or developing parenting skills)? [...] Description 03/19/2025 8:45 AM EDT Office Visit [address] [place] [address] Lindsay Otto MD [address] [place] [address], [address] [place] [address] 03/24/2025 9:40 AM EDT Office Visit [facility] [address] [place] [address] Dr 3rd Floor, [address] [place] [address] Alexis Acosta MD, MS 22 [facility], [address] [place] [address] 01/05/2026 2:30 PM EDT Office Visit [address] [place] [address] Lindsay Otto MD [address] [address] documented as of this encounter Visit Diagnoses [...] documented as of this encounter Care Teams Truck Manager Relationship Specialty Start Date End Date Lindsay Otto MD [address] [place] [address] PCP - General Internal Medicine 01/29/18 Lindsay Otto MD [address] [place] [address] Insurance Assigned Provider 12/30/19 11/29/20 Ankit Khoury MD [address] [place] [phone] [email or web address] Urology 02/19/21 documented as of this encounter Additional Source Comments The information contained in this document represents components of the legal health record. It is not the complete legal health record.[facility]
== END 2025-03-17 18:30 | disposition home or self-care (01) ==
PROVIDERS: Emergency Provider Emergency Medicine; PCP Internal Medicine
DX: S06.0X0A Concussion without loss of consciousness, initial encounter (principal); W18.39XA Other fall on same level, initial encounter; Y93.89 Activity, other specified; Y92.096 Garden or yard of other non-institutional residence as the place of occurrence of the external cause; Y99.8 Other external cause status
CPT/HCPCS: 70450; 99284

== ENCOUNTER → 2025-03-17 15:26 | Outpatient (BNV) | payer OTHER, SELFPAY | PROVIDERS: Emergency Provider Emergency Medicine; PCP Internal Medicine; Visit Provider Radiology Diagnostic Radiology | DX: S09.90XA Unspecified injury of head, initial encounter (principal); W19.XXXA Unspecified fall, initial encounter | CPT/HCPCS: 70450 ==